=== PATIENT | male | born 1950 | race Caucasian/White ===

== ENCOUNTER 2019-07-24 13:03 | Inpatient (IN) | payer MEDICARE, MEDICAID, SELFPAY ==
[2019-07-24] VITALS (27 sets, daily range): BP systolic 79–130; BP diastolic 56–85; PULSE 86–127; RESP 12–30; TEMP 36.4–37; O2SAT 73–96; BMI 28.4
--- NOTE | 2019-07-24 13:06 | XRR_ITS ---
PROCEDURE INFORMATION: Exam: XR Chest, 1 View Exam date and time: 07/24/2019 1:09 PM Age: 69 years old Clinical indication: Shortness of breath; Additional info: Cough TECHNIQUE: Imaging protocol: XR of the chest Views: 1 view. COMPARISON: CT chest con [id number] 08/25/2016 3:19 PM FINDINGS: Lungs: Low lung volumes are seen with diffuse chronic interstitial lung disease. These findings were demonstrated on the prior CT chest examination and appears similar. Pleural space: Unremarkable. No pleural effusion. No pneumothorax. Heart/Mediastinum: Unremarkable. No cardiomegaly. Bones/joints: Unremarkable. XR/XR chest 1V portable [id number] IMPRESSION: Chronic diffuse interstitial lung disease stable since prior Otherwise negative chest examination
--- NOTE | 2019-07-24 13:07 | ECG_ITS ---
Measurements Intervals [place] Rate: 128 P: SC: 0 QRS: -46 QRSD: 110 T: -25 QT: 280 QTc: 409 SUPRAVENTRICULAR TACHYCARDIA PATTERN CONSISTENT WITH PULMONARY DISEASE INFERIOR MYOCARDIAL INFARCTION , OF INDETERMINATE AGE [40+ ms Q WAVE AND/OR ST/T ABNORMALITY IN II/aVF] No previous ECG available for comparison Electronically Signed On 07-24-2019 19:05:30 CDT by Tiera Cross M.D. [id number]
[2019-07-24 13:24] LABS: Alveolar-Arterial Oxygen Gradi 592.9 mmHg (5-10); Arterial Blood Gas Hematocrit 42.3 % (42-52); Blood Gas Allen Test Pos; Blood Gas Sample Site Radial, left; Blood Gas Sample Type Arterial; Carboxyhemoglobin 2.3 %THgb (0.4-20.1); HCO3 ABG 18.6 mmol/L (22-26); HGB O2 Sat 89.9 % (95-100); Ionized Calcium Level - ABG 1.1 mmol/L (1.1-1.4); Methemoglobin 0.7 % (0.4-1.5); Oxygen Device NRB; Oxygen Saturation ABG 92.7; PO2 ABG 63.1 mmHg (80.0-100.0); Potassium Level - ABG 3.7 mmol/L (3.5-5.0); Total Hemoglobin 13.8 g/dL (14-18)
[2019-07-24] MEDS: albuterol 8 gm MDI 6 PUFF INHALATION (13:36)
[2019-07-24] MEDS: levofloxacin-dextrose 5 % 750 MG/150 ML PREMIX 150 MG IV (13:38)
[2019-07-24 13:42] LABS: Basophils # 0.2 10^3/uL (0.0-0.1); Basophils % 0.8 %; Eosinophils # 0.1 10^3/uL (0.0-0.8); Eosinophils % 0.3 %; Hematocrit 45.9 % (42.0-52.0); Hemoglobin 14.2 g/dL (11.7-16.6); Lymphocytes # 2.4 10^3/uL (0.8-4.8); Lymphocytes % 12.5 %; Mean Corpuscular HGB Conc 30.9 g/dL (30.0-36.0); Mean Corpuscular Hemoglobin 30.1 pg (28.0-34.0); Mean Corpuscular Volume 97.2 fL (80-94); Mean Platelet Volume 12.6 fL (7.4-10.4); Monocytes % 10.3 %; Neutrophils # 14.6 10^3/uL (1.8-7.7); Neutrophils % 75.4 %; Nucleated Red Blood Cells % 0 %; Platelet Count 347 10^3/cmm (130-400); Red Blood Count 4.72 10^6/uL (4.1-5.3); Red Cell Distribution Width 13.8 % (12.1-15.1); White Blood Count 19.3 10^3/uL (4.0-10.0)
[2019-07-24 14:04] LABS: Alanine Aminotransferase 9 U/L (0-41); Alkaline Phosphatase 81 IU/L (40-130); Anion Gap 29.1 (5-19); Aspartate Amino Transferase 21 U/L (0-40); Blood Urea Nitrogen 29 mg/dL (8-23); Carbon Dioxide 17 mmol/L (22-29); Chloride 93 mmol/L (98-107); Glomerular Filtration Rate 27.1 mL/min (90-130); Glucose 358 mg/dL (65-115); Magnesium 2.5 mg/dL (1.7-2.3); NT Pro B Type Natriuretic Pept 10892 pg/mL (0-125); Osmolality Calculated 291 mOsm/kg (285-295); Potassium 4.1 mmol/L (3.5-5.1); Sodium 135 mmol/L (136-145); Total Bilirubin 1.2 mg/dL (0.15-1.2)
[2019-07-24 14:10] LABS: Troponin(5th) Baseline 276 ng/L (0-15)
--- NOTE | 2019-07-24 14:41 | PC.NURSE ---
patient received 1 liter of fluids per ems and 3 liters in er
--- NOTE | 2019-07-24 14:43 | USCV_ITS ---
Mario Sherwood Age: 69 Gender: M : 1950 Exam Date: 07/24/2019 15:03 Ordering Phys: Liset Jc DO Technologist: Sandra Rondon Exam Location: [facility] Indication: EF BP: 79 / 56 HR: 111 Rhythm: Sinus Technical Quality: Technically difficult study MEASUREMENTS (Male / Female) Normal Values 2D ECHO LV Diastolic Diameter PLAX 4.7 cm 4.2 - 5.9 / 3.9 - 5.3 cm LV Systolic Diameter PLAX 3.1 cm IVS Diastolic Thickness 1.6 cm 0.6 - 1.0 / 0.6 - 0.9 cm IVS Systolic Thickness 1.7 cm LVPW Diastolic Thickness 1.6 cm 0.6 - 1.0 / 0.6 - 0.9 cm LVPW Systolic Thickness 2.4 cm LV Ejection Fraction 2D Teich 61.7 % M-MODE LV Diastolic Diameter MM 5.4 cm 4.2 - 5.9 / 3.9 - 5.3 cm LV Systolic Diameter MM 3.3 cm LV Ejection Fraction MM Teich 69.1 % IVS Diastolic Thickness MM 2.7 cm 0.6 - 1.0 / 0.6 - 0.9 cm IVS Systolic Thickness MM 2.5 cm LVPW Diastolic Thickness MM 1.7 cm 0.6 - 1.0 / 0.6 - 0.9 cm LVPW Systolic Thickness MM 2.7 cm RV Diastolic Diameter MM 1.9 cm FINDINGS Left Ventricle Decreased left ventricular cavity size. Normal left ventricular systolic function. Left ventricular ejection fraction is estimated at 55 %. Flattened septum in diastole consistent with right ventricle volume overload. Right Ventricle Moderately increased right ventricular size. Severely decreased right ventricular systolic function. Right Atrium Normal right atrial size. Left Atrium Normal left atrial size. Mitral Valve Structurally normal mitral valve. No mitral valve stenosis. Aortic Valve Mild aortic valve calcification. No aortic valve stenosis. Tricuspid Valve No tricuspid valve stenosis. Pulmonic Valve Pulmonic valve not well visualized. Pericardium No pericardial mass. Aorta Normal ascending aorta dimension. CONCLUSIONS Please note that this is a limited echo without Doppler data while images are suboptimal therefore full interpretation of echo in detail is not possible. 1-Decreased left ventricular cavity size. Normal left ventricular systolic function. Left ventricular ejection fraction is estimated at 55 %. Flattened septum in diastole consistent with right ventricle volume overload. 2-Moderately increased right ventricular size. Severely decreased right ventricular systolic function. Due to lack of Doppler data we cannot calculate pulmonary pressure. Differential diagnosis of reduced RV function and RV strain could be large pulmonary embolism, interstitial pulmonary disease, pulmonary hypertension and RV infarction 3-No significant valvular abnormality pertaining to stenosis of the valve however due to lack of Doppler analysis cannot assess regurgitation 4-There is no pericardial effusion. 5-Right atrial pressure is around 20 mm of mercury. 6-There are no prior echocardiogram studies to compare. Tiera Cross MD (Electronically Signed) Final Date: 24 July 2019 16:08 S
--- NOTE | 2019-07-24 14:52 | ED_ITS ---
HPI - SOB/Dyspnea General: Chief Complaint: Shortness of Breath/Dyspnea Stated Complaint: SOB Time Seen by Provider: 07/24/19 13:04 History of Present Illness: HPI Narrative: Mario is a 69-year-old male who comes in complaining of fever, cough and weakness. He states his symptoms began 3 days ago. Yesterday his fever was as high as 102 degrees. His cough is productive of yellow and white sputum. He denies any chest pain except for he states he feels sore in his chest from coughing but otherwise denies any pain at rest. The patient does not believe he has been around anyone else sick. EMS reports the patient was found to be hypoxic with a pulse oximetry in the 70s and a blood pressure in the 70s as well. Patient does not normally wear oxygen and states that he has some type of lung disease. EMS gave the patient 0.25 mg of terbutaline subcu, 125 mg of Solu-Medrol IV and p.o. aspirin. Associated symptoms: Reports fever(s); Deny abdominal pain, chest congestion, chest pain, diaphoresis, dizziness, extremity pain, hemoptysis, lightheadedness, nausea, orthopnea, palpitations, syncope or vomiting Review of Systems Const: Reports: fever(s), chills and body aches; Denies: fatigue, malaise or diaphoresis Eyes: Denies: change in vision, blurry vision, blind spots or photophobia ENMT: Denies: throat pain, odynophagia, hoarseness, swelling of lips/tongue, ear or mastoid pain, ear discharge, change in hearing or nasal discharge Card: Denies: chest pain, palpitations, irregular heart rhythm, edema, lightheadedness, syncope, pre-syncope, dyspnea on exertion or orthopnea Resp: Reports: dyspnea, productive cough and wheezing; Denies: non-productive cough, hemoptysis or chest congestion GI: Denies: abdominal pain, nausea, vomiting, hematemesis, coffee ground emesis, heartburn, diarrhea, constipation, GI cramping, hematochezia or melena : Denies: flank pain, dysuria, urinary frequency, urinary urgency or hematuria Musc: Denies: neck pain, back pain, extremity pain, extremity swelling, joint pain, joint swelling, joint redness, joint warmth or joint stiffness Skin/Breast: Denies: rash, pruritus, erythema, skin tenderness or jaundice Neuro: Denies: headache(s), numbness in extremities, weakness in extremities, sensory changes, lack of coordination, difficulty walking, dizziness, vertigo, confusion or Slurred speech present Azeem/Lymph: Denies: easy bruising, easy bleeding, petechiae, purpura or enlarged lymph nodes All/Imm: Denies: urticaria, throat swelling, tongue swelling, facial swelling or acute wheezing PFSH ED PFSH: Medical History COPD (chronic obstructive pulmonary disease) DM type 2 (diabetes mellitus, type 2) GERD (gastroesophageal reflux disease) Hypertension Pulmonary fibrosis Social History Smoking and tobacco status: former smoker Physical Exam Const: COMMON NORMALS: no acute distress, patient oriented x3, no limitations, healthy appearing and well nourished GENERAL APPEARANCE: cooperative, well kempt and well developed HENMT: COMMON NORMALS: normocephalic, atraumatic, external ears normal, EAC's normal and Normal external nose present HEAD & SCALP: normal to inspection, normocephalic and atraumatic FACE & SINUS: normal facial exam and face symmetric NOSE: Normal external nose present and Normal nares present EXTERNAL EAR: Yes external ears normal EXTERNAL AUDITORY CANAL: EAC's normal MOUTH: Normal oral and palatal mucosa present, lip normal and tongue normal Eye: COMMON NORMALS: Equal, round and reactive pupils present and conjunctivae normal GENERAL EYE: appearance normal, both eyes and all related structures ALIGNMENT: Yes alignment normal PERIORBITAL: periorbital findings normal EYELID: eyelids normal CONJUNCTIVA: Yes conjunctivae normal SCLERA: sclerae normal PUPIL: Yes Equal, round and reactive pupils present Neck/C-Spine: COMMON NORMALS: full ROM, no lymphadenopathy, supple, no meningeal signs and no JVD GENERAL: Yes normal visual inspection and Yes trachea midline Chest: COMMONS NORMALS: normal inspection of the chest and normal palpation of entire chest wall Resp: COMMON NORMALS: normal respiratory effort, No retractions and No use of accessory muscles EFFORT & INSPECTION: Yes able to speak in complete sentences and Yes symmetric chest movement AUSCULTATION: no crackles, no rales, rhonchi and wheezes Cardio: COMMON NORMALS: no JVD, regular rate, regular rhythm, S1 normal heart sound present and S2 normal heart sound present RATE: regular rate RHYTHM: regular rhythm HEART SOUNDS: S1 normal heart sound present, S2 normal heart sound present, no click, no gallops, no murmurs, no rubs and abnormal split S2 GI: COMMON NORMALS: Soft to palpation and No hepatosplenomegaly present PALPATION: Yes Soft to palpation, No Tenderness to palpation present (GI), No Guarding due to palpation present (GI), No Rigid due to palpation, Yes No hepatosplenomegaly present, No Hernia present, No Palpable mass present and No Pulsatile mass present : COMMON NORMALS: Yes no CVA tenderness BLADDER/KIDNEY EXAM: Yes no CVA tenderness Back/Pelvis: COMMON NORMALS: no CVA tenderness, thoracic and lumbar spine normal to inspection, no thoracic nor lumbar tenderness and thoraco-lumbar ROM normal Extremity: COMMON NORMALS: normal to inspection, full ROM, capillary refill normal, no joint enlargement, no clubbing, cyanosis or edema and no calf tenderness Neuro: COMMON NORMALS: patient oriented x3, CN's II-XII intact bilaterally, moves all extremities, no focal motor deficits and no sensory deficits noted MENINGEAL SIGNS: Yes no meningeal signs SPEECH: speech normal Psych: COMMON NORMALS: mental status grossly normal, Normal thought process present, cooperative, normal affect, speech normal and activity/motor behavior normal APPEARANCE: Yes well kempt SPEECH: Yes normal speech THOUGHT PROCESS: Normal thought process present Skin: COMMON NORMALS: no rashes or lesions noted, turgor normal, no jaundice, no petechiae and no mottling GENERAL SKIN EXAM: no rashes or lesions noted and turgor normal Course Vital Signs: Vital signs: Vital Signs Temperature 98.6 F 07/24/19 13:08 Pulse Rate 95 07/24/19 18:20 Respiratory Rate 22 H 07/24/19 18:20 Blood Pressure 110/80 07/24/19 18:20 Pulse Oximetry 95 07/24/19 18:20 MDM - SOB/Dyspnea MDM Narrative: Medical decision making narrative: The case was reviewed with Dr. Toribio. She agrees to admit. She would like a stat ultrasound to evaluate for the ejection fraction. The EKG had been previously reviewed with Dr. Mora and he agrees there is no evidence of acute NC. The patient does not have any chest pain. The patient has had COVID precautions placed from the beginning and is being treated empirically for sepsis. The patient is on Levophed and does remain critically ill. He will be admitted to the ICU. Lab Data: Attestation: I reviewed the patient's lab results. Labs: Lab Results 07/24/19 07/24/19 07/24/19 Range/Units 12:29 12:29 12:29 WBC 19.3 H (4.0-10.0) 10^3/ uL RBC 4.72 (4.1-5.3) 10^6/u L Hgb 14.2 (11.7-16.6) g/dL Hct 45.9 (42.0-52.0) % MCV 97.2 H (80-94) fL MCH 30.1 (28.0-34.0) pg MCHC 30.9 (30.0-36.0) g/dL RDW 13.8 (12.1-15.1) % Plt Count 347 (130-400) 10^3/c mm MPV 12.6 H (7.4-10.4) fL Neut % (Auto) 75.4 % Lymph % (Auto) 12.5 % Archer % (Auto) 10.3 % Eos % (Auto) 0.3 % Baso % (Auto) 0.8 % Neut # (Auto) 14.6 H (1.8-7.7) 10^3/u L Lymph # (Auto) 2.4 (0.8-4.8) 10^3/u L Archer # (Auto) 2.0 H (0.2-0.9) 10^3/u L Eos # (Auto) 0.1 (0.0-0.8) 10^3/u L Baso # (Auto) 0.2 H (0.0-0.1) 10^3/u L Nucleated RBC % (a uto) 0 % Nucleated RBCs # 0.0 /100WBC Specimen Type Sample Site ABG pH (7.35-7.45) ABG pCO2 (35-45) mmHg ABG pO2 (80.0-100.0) mmH g ABG HCO3 (22-26) mmol/L ABG O2 Saturation ABG Base Excess (-2.0-2.0) mmol/ L Michael Test A-a O2 Gradient (5-10) mmHg Hematocrit (42-52) % Hgb O2 Saturation (95-100) % Carboxyhemoglobin (0.4-20.1) %THgb Methemoglobin (0.4-1.5) % Total Hemoglobin (14-18) g/dL Ionized Calcium (1.1-1.4) mmol/L O2 Delivery Device O2 Liters/Min % FiO2 % Health Insurance Agent ID Sodium 135 L (136-145) mmol/L Potassium 4.1 (3.5-5.1) mmol/L Chloride 93 L (98-107) mmol/L Carbon Dioxide 17 L (22-29) mmol/L Anion Gap 29.1 H (5-19) BUN 29 H (8-23) mg/dL Creatinine 2.4 H (0.7-1.2) mg/dL GFR Calculation 27.1 L (90-130) mL/min Glucose 358 H (65-115) mg/dL Calculated Osmolal ity 291 (285-295) mOsm/k g Lactic Acid (0.5-2.2) mmol/L Calcium 9.0 (8.5-10.5) mg/dL Magnesium 2.5 H (1.7-2.3) mg/dL Total Bilirubin 1.2 (0.15-1.2) mg/dL AST 21 (0-40) U/L ALT 9 (0-41) U/L Alkaline Phosphata se 81 (40-130) IU/L Troponin T Baselin e 276 H* (0-15) ng/L Troponin T 120 Min lumbee (0-15) ng/L Delta Troponin T (0-10) ABS# NT-Pro-B Natriuret Pep 52458 H (0-125) pg/mL Total Protein 8.0 (6.6-8.7) g/dL Albumin 4.0 (3.5-5.2) g/dL Globulin 4.0 (1.3-4.6) g/dL 07/24/19 07/24/19 07/24/19 Range/Units 13:13 13:20 14:32 WBC (4.0-10.0) 10^3/ uL RBC (4.1-5.3) 10^6/u L Hgb (11.7-16.6) g/dL Hct (42.0-52.0) % MCV (80-94) fL MCH (28.0-34.0) pg MCHC (30.0-36.0) g/dL RDW (12.1-15.1) % Plt Count (130-400) 10^3/c mm MPV (7.4-10.4) fL Neut % (Auto) % Lymph % (Auto) % Archer % (Auto) % Eos % (Auto) % Baso % (Auto) % Neut # (Auto) (1.8-7.7) 10^3/u L Lymph # (Auto) (0.8-4.8) 10^3/u L Archer # (Auto) (0.2-0.9) 10^3/u L Eos # (Auto) (0.0-0.8) 10^3/u L Baso # (Auto) (0.0-0.1) 10^3/u L Nucleated RBC % (a uto) % Nucleated RBCs # /100WBC Specimen Type Arterial Sample Site Radial, left ABG pH 7.40 (7.35-7.45) ABG pCO2 30.0 L (35-45) mmHg ABG pO2 63.1 L (80.0-100.0) mmH g ABG HCO3 18.6 L (22-26) mmol/L ABG O2 Saturation 92.7 ABG Base Excess -5.0 L (-2.0-2.0) mmol/ L Michael Test Pos A-a O2 Gradient 592.9 H (5-10) mmHg Hematocrit 42.3 (42-52) % Hgb O2 Saturation 89.9 L (95-100) % Carboxyhemoglobin 2.3 (0.4-20.1) %THgb Methemoglobin 0.7 (0.4-1.5) % Total Hemoglobin 13.8 L (14-18) g/dL Ionized Calcium 1.1 (1.1-1.4) mmol/L O2 Delivery Device Nrb O2 Liters/Min 15.0 % FiO2 100.0 % Health Insurance Agent ID ed Sodium 134.0 (136-145) mmol/L Potassium 3.7 (3.5-5.1) mmol/L Chloride (98-107) mmol/L Carbon Dioxide (22-29) mmol/L Anion Gap (5-19) BUN (8-23) mg/dL Creatinine (0.7-1.2) mg/dL GFR Calculation (90-130) mL/min Glucose 308.0 H (65-115) mg/dL Calculated Osmolal ity (285-295) mOsm/k g Lactic Acid 5.0 H* (0.5-2.2) mmol/L Calcium (8.5-10.5) mg/dL Magnesium (1.7-2.3) mg/dL Total Bilirubin (0.15-1.2) mg/dL AST (0-40) U/L ALT (0-41) U/L Alkaline Phosphata se (40-130) IU/L Troponin T Baselin e (0-15) ng/L Troponin T 120 Min lumbee 206.8 H (0-15) ng/L Delta Troponin T -69.2 L (0-10) ABS# NT-Pro-B Natriuret Pep (0-125) pg/mL Total Protein (6.6-8.7) g/dL Albumin (3.5-5.2) g/dL Globulin (1.3-4.6) g/dL Imaging Data^: CXR: My impression: Extensive interstitial fibrosis. EKG Data^: EKG 1: Attestation: I personally reviewed and interpreted this EKG as follows: EKG Interpretation Date: 07/24/19 EKG interpretation time: 13:19 Interpretation: Normal sinus rhythm with a ventricular rate of 128, old inferior Q waves with mild ST segment elevation in [address] segment depression in 1 and aVL. Findings confirm with Dr. Mora. Critical Care Time Critical Care Time: Critical Care Time: Yes Total Critical Care Time: 30 Attestation: Critical care time consisted of evaluating and reevaluating the patient with condition changes. Critical care time consisted of blood pressure management with IV fluids and IV vasopressors. Critical care time consisted of evaluating the patient's lab and adjusting medications and consultations with multiple providers. 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
[2019-07-24] MEDS: enoxaparin 100 mg/mL Syringe SUBCUT (15:02)
[2019-07-24 15:03] LABS: Troponin 5 2HR Delta -69.2 ABS# (0-10)
[2019-07-24 15:05] LABS: Troponin 5 2HR 206.8 ng/L (0-15)
--- NOTE | 2019-07-24 15:07 | ECG_ITS ---
Measurements Intervals [place] Rate: 108 P: -39 AR: 151 QRS: -42 QRSD: 107 T: -49 QT: 335 QTc: 449 SINUS TACHYCARDIA PATTERN CONSISTENT WITH PULMONARY DISEASE INFERIOR MYOCARDIAL INFARCTION , OF INDETERMINATE AGE [40+ ms Q WAVE AND/OR ST/T ABNORMALITY IN II/aVF] MODERATE T-WAVE ABNORMALITY, CONSIDER ANTERIOR ISCHEMIA [-0.1+ mV T WAVE IN V3/V4] No previous ECG available for comparison Electronically Signed On 07-24-2019 19:07:43 CDT by Tiera Cross M.D. [email or web address]
[2019-07-24 15:11] LABS: Reflex Lactate Order REFLEX LACTIC ORDERD
--- NOTE | 2019-07-24 16:04 | USR_ITS ---
PROCEDURE INFORMATION: Exam: US Duplex Lower Extremity Veins, Bilateral Exam date and time: 07/24/2019 4:05 PM Age: 69 years old Clinical indication: Pain; Leg, lower; Bilateral TECHNIQUE: Imaging protocol: Real-time duplex ultrasound of the extremities with 2-D hou scale, color Doppler flow and spectral waveform analysis with image documentation. Complete exam focused on the bilateral lower extremity veins. COMPARISON: No relevant prior studies available. FINDINGS: Right deep veins: Unremarkable. The common femoral, femoral, proximal profunda femoral and popliteal veins are patent without thrombus. Normal Doppler waveforms. Normal compressibility and/or augmentation response. Right superficial veins: Saphenofemoral junction is patent without thrombus. Left deep veins: Unremarkable. The common femoral, femoral, proximal profunda femoral and popliteal veins are patent without thrombus. Normal Doppler waveforms. Normal compressibility and/or augmentation response. Left superficial veins: Saphenofemoral junction is patent without thrombus. Soft tissues: Unremarkable. US/[place] [id number] IMPRESSION: No evidence of deep vein thrombosis.
[2019-07-24 16:14] LABS: Bilirubin Urine 1+ (NEGATIVE); Blood Urine Neg (Negative); Glucose Urine UA 1+ (Normal); Ketones Urine 1+ (Negative); Leukocyte Esterase Urine Negative (Negative); Nitrate Urine Negative (Negative); Protein Urine 1+ (Negative); Specific Gravity, Urine 1.025 (1.005-1.030); Urine Appearance Clear (CLEAR); Urine Color Yellow (Yellow); Urobilinogen Urine 8 mg/dL (Negative); pH Urine 5 (5-7)
[2019-07-24 16:19] LABS: Bacteria Urine 2+; Mucus Urine 2+
[2019-07-24 16:20] LABS: Amorphous Sediment Urine 1+; Squamous Epithelial Cell Urine 0-4 (0-5); WBC Urine 0-4 /hpf (0-5)
[2019-07-24 16:21] LABS: Hyaline Casts Urine 0-4
[2019-07-24 16:22] LABS: Add Urine Culture? Yes
[2019-07-24 16:54] LABS: Lactic Acid level (Lactate) 2.5 mmol/L (0.5-2.2)
[2019-07-24 17:22] LABS: D Dimer 4.71 ug/mIFEU (0-0.59)
--- NOTE | 2019-07-24 18:31 | P.HP_ITS ---
Providers/Chief Complaint Admitting Physician: Yissel Toribio MD Chief Complaint: SOB History of Present Illness Mario Sherwood is a 69 year old male with a past medical history of diabetes mellitus, hypertension, interstitial lung disease/COPD, GERD scented to the ER today complaining of fever up to 102 Fahrenheit at home that started about 3 days ago. He is complaining of cough with productive sputum history of postnasal drip present. No history of sick contacts. He has not been on any chronic steroids. Upon arrival at the ER he was noted to be hypoxic with SPO2 70s. Of note he is not on any home oxygen. He received 125 mg of Solu-Medrol in the ER. He was also noted to be hypotensive with a systolic blood pressure in the 70s and was started on Levophed. He did receive a sepsis bolus. Diagnostics in the ED were concerning for elevated white blood cell count of 19, lactate of 5, d-dimer of 4.71 ABG with 30/60 3/18.6, carboxyhemoglobin and methemoglobin within normal limits 100% FiO2 nonrebreather. Only concerning labs were blood sugar of 358, anion gap of 29, creatinine of 2.4, elevated baseline troponin of 276 with 2-hour delta of -69. Elevated proBNP of 10,800, EKG with inverted T waves in V3 V4 without any prior EKGs for comparison. Limited echo obtained per my request showed normal LVEF of 55%, flattened septum in diastole consistent with right ventricular volume overload. Moderately increased right ventricular size and severely decreased right ventricular systolic function overall findings were extremely concerning for RV strain and possible PE especially with the elevated d-dimer and new hypoxia. It was discussed with the patient in the ER that ideally would like to perform a CTA to rule out the possibility of a large PE, however patient refused due to the risk of contrast-induced nephropathy. He has been started on full dose lovenox in the interim. CXR is with pulmonary fibrosis, grossly unchanged per report. Review of Systems General: Reports: 10 or more systems reviewed and unremarkable except in HPI and below Const: Denies: fever(s), chills or body aches Eyes: Denies: change in vision, blurry vision or photophobia ENMT: Reports: hoarseness; Denies: throat pain, enlarged tonsils, odynophagia or nasal congestion Card: Denies: chest pain, palpitations, irregular heart rhythm, edema, swelling of feet/ankles, lightheadedness, pre-syncope, dyspnea on exertion or orthopnea Resp: Denies: dyspnea, productive cough, non-productive cough, wheezing, stridor, pain on inspiration, change in phlegm color, hemoptysis or chest congestion GI: Denies: abdominal pain, nausea, vomiting, hematemesis, coffee ground emesis, dysphagia, heartburn, diarrhea, constipation, GI cramping, change in stool character, hematochezia or melena : Denies: flank pain, dysuria, urinary frequency, urinary urgency, urinary hesitancy or hematuria Musc: Denies: neck pain, back pain, extremity pain, joint swelling, joint warmth or deformity Neuro: Denies: headache(s), numbness in extremities, weakness in extremities, sensory changes, difficulty walking, frequent falls, dizziness, vertigo, behavioral changes, Slurred speech present or seizure-like activity Psych: Denies: anxiety, depression, suicidal ideation or homicidal ideation Endo: Denies: polyuria, polydipsia, tired all the time, cold intolerance or hot flashes Azeem/Lymph: Denies: easy bruising or easy bleeding Medications/Allergies Home Medications Medication Instructions Recorded Confirmed Last Taken Type diltiazem HCl 240 mg PO DAILY 07/24/19 07/24/19 07/23/19 History gabapentin 300 mg PO TID 07/24/19 07/24/19 Unknown History liraglutide [Victoza 3-Cassius] 1.8 mg SUBCUT DAILY 07/24/19 07/24/19 07/23/19 History tiotropium bromide [Spiriva with 1 cap INHALATION DAILY 07/24/19 07/24/19 Unknown History HandiHaler] tramadol 50 mg PO Q8H PRN 07/24/19 07/24/19 Unknown History valsartan 160 mg PO DAILY 07/24/19 07/24/19 07/23/19 History Allergies Allergy/AdvReac Type Severity Reaction Status Date / Time No Known Allergies Allergy Verified 07/24/19 13:19 PFSH Acute PFSH: Medical History COPD (chronic obstructive pulmonary disease) DM type 2 (diabetes mellitus, type 2) GERD (gastroesophageal reflux disease) Hypertension Pulmonary fibrosis Social History Smoking and tobacco status: former smoker Vitals/I&O/Wt Last Vital Signs Temp 98.6 F 07/24/19 13:08 Pulse 95 07/24/19 18:20 Resp 22 H 07/24/19 18:20 BP 110/80 07/24/19 18:20 Pulse Ox 95 07/24/19 18:20 Weight last 48 hrs Weight 108.862 kg Physical Exam Narrative: EXAM NARRATIVE: GEN: Awake, alert and oriented, no acute distress HEENT: currently on a NRB mask with 15lpm, saturating 95% CVS: S1S2 N RS: B/L scattered fine crackles on exam. Abd: Soft, nt/nd , bs+ BUS SYSTEM OPERATOR: no focal neuro deficits Urinary Catheter Management^: Casey: Cath Placed During This Visit: yes Urinary Catheter Date of Insertion: 07/24/19 Urinary Catheter Time of Insertion: 18:22 Data : 07/24/19 12:29 07/24/19 18:45 Micro: Microbiology 07/24/19 13:25 Blood Culture - Preliminary Blood SPECIMEN COLLECTED 07/24/19 13:20 Blood Culture - Preliminary Blood SPECIMEN COLLECTED A&P Assessment and plan (1) Sepsis with acute hypoxic respiratory failure: Status: Acute Qualifiers: Sepsis type: sepsis due to unspecified organism Severe sepsis shock status: with septic shock Qualified Code(s): A41.9 - Sepsis, unspecified organism; R65.21 - Severe sepsis with septic shock; J96.01 - Acute respiratory failure with hypoxia (2) Septic shock: Status: Acute (3) Hypertension: Status: Acute Qualifiers: Hypertension type: essential hypertension Qualified Code(s): I10 - Essential (primary) hypertension (4) DM type 2 (diabetes mellitus, type 2): Status: Acute Qualifiers: Diabetes mellitus complication status: without complication Diabetes mellitus research program internship insulin use: without research program internship use Qualified Code(s): E11.9 - Type 2 diabetes mellitus without complications (5) Pulmonary fibrosis: Status: Acute (6) COPD (chronic obstructive pulmonary disease): Status: Acute Qualifiers: COPD type: unspecified COPD Qualified Code(s): J44.9 - Chronic obstructive pulmonary disease, unspecified (7) Right ventricular dysfunction: Status: Acute (8) MILENA (acute kidney injury): Status: Acute Additional A&P Information Admit to ICU 1. Septic shock: meets sepsis criteria by way of leukocytosis, tachycardia and hypotension and elevated lactate. Source of sepsis is currently under evaluation. Patient reports a history of cough production over the past few days. Chest x-ray shows chronic diffuse interstitial lung disease stable since last x-ray when compared to August 2016. No gross consolidation is currently seen. UA without leuk esterase and negative nitrites No current abdominal symptoms such as diarrhea abdominal pain or nausea. COVID testing has been requested from the ER and sent Check urine Legionella and bacterial antigens. Empiric Zosyn and azithromycin in the interim for atypical pneumonia. #2 acute hypoxic respiratory failure The above could be related to sepsis. Covid testing has been requested. ABG with within normal limit carboxy and methemoglobin. Given elevated d-dimer, elevated troponin with negative delta's, evidence of right heart strain on echocardiogram(though this may be related to underlying interstitial lung disease), hypoxic respiratory failure, possibility of pulmonary embolism including life-threatening saddle embolus is really high. Need for an urgent CTA was discussed with the patient, however he has refused while understanding the risks of missing a massive PE which may require thrombolysis. This is primarily because of his concern for possible contrast- induced nephropathy. Risks and benefits were discussed with the patient however he has refused this test for now We will start full dose anticoagulation with Lovenox in the interim. This will be renally dosed. Patient remains at high risk of intubation and mechanical ventilation. Lower extremity Doppler performed in the ER is without any evidence of DVT. He has received Solu-Medrol while in route to the hospital. Albuterol inhalation every 4 hours standing. Continue Spiriva inhalation. Will change to nebulized on both once COVID testing results are obtained. #3 diabetes mellitus, currently with hyperglycemia. Elevated anion gap which appears to be most likely related to sepsis, however possibility of DKA cannot be excluded. Last lab work is from . We will check a stat cmp serum ketones. If anion gap still persisting along with positive ketones, will start insulin drip. In the interim he has been started on high insulin sliding scale. #4 hypertension: Patient is hypotensive and on Levophed at 2 mics per minute. We will hold off on his antihypertensive regimen for now. #5 elevated troponins: Sort of right heart strain noted on echocardiogram. Serial troponins are trending down. #6 history of COPD #7 acute kidney injury, likely as a result of sepsis. Last known creatinine 0.7 from 2013. Gentle IV hydration. Attestations Medical Necessity Statement*: anticipate >2midnight admission for septic shock, new hypoxic respiratory failure Coding Level of Care Code Acute Estimator Paperboard Boxes for [facility] Fwd Diagnoses Sepsis with acute hypoxic respiratory failure A41.9; R65.21; J96.01 Sepsis type: sepsis due to unspecified organism Severe sepsis shock status: with septic shock Septic shock A41.9; R65.21 Hypertension I10 Hypertension type: essential hypertension DM type 2 (diabetes mellitus, type 2) E11.9 Diabetes mellitus complication status: without complication Diabetes mellitus research program internship insulin use: without long-term use Pulmonary fibrosis J84.10 COPD (chronic obstructive pulmonary disease) J44.9 COPD type: unspecified COPD Right ventricular dysfunction I51.9 MILENA (acute kidney injury) N17.9
--- NOTE | 2019-07-24 19:07 | ECG_ITS ---
Measurements Intervals [place] Rate: 93 P: 12 WI: 202 QRS: -35 QRSD: 128 T: -65 QT: 424 QTc: 530 SINUS RHYTHM WITH OCCASIONAL VENTRICULAR PREMATURE COMPLEXES INFERIOR MYOCARDIAL INFARCTION [40+ ms Q WAVE AND/OR ST/T ABNORMALITY IN II/aVF], OF INDETERMINATE AGE MODERATE T-WAVE ABNORMALITY, CONSIDER ANTEROLATERAL ISCHEMIA [-0.1+ mV T WAVE IN V3-V6] Compared to ECG 07/24/2019 15:40:21 Ventricular premature complex(es) now present Sinus tachycardia no longer present Myocardial infarct finding still present T-wave abnormality still present Possible ischemia still present Electronically Signed On 07-25-2019 19:30:36 CDT by Tiera Cross M.D. [email or web address]
[2019-07-24 19:09] LABS: Ketone (Acetest) Serum Negative (Negative)
[2019-07-24 19:14] LABS: Lactic Sepsis W/Reflex 2.7 mmol/L (0.5-2.2)
[2019-07-24] MEDS: lactated ringers 1,000 ML 75 ML IV (19:17)
--- NOTE | 2019-07-24 19:18 | PC.NURSE ---
PT DID NOT ARRIVE UNTIL 1814 TO FLOOR; LR SCANNED AT A LATE TIME DUE TO HIS ARRIVAL
[2019-07-24 19:24] LABS: Procalcitonin 0.32 ng/mL (0-0.5)
[2019-07-24 19:35] LABS: Alanine Aminotransferase 10 U/L (0-41); Albumin Level 3.3 g/dL (3.5-5.2); Alkaline Phosphatase 67 IU/L (40-130); Aspartate Amino Transferase 22 U/L (0-40); Blood Urea Nitrogen 25 mg/dL (8-23); Calcium 8.4 mg/dL (8.5-10.5); Carbon Dioxide 18 mmol/L (22-29); Chloride 97 mmol/L (98-107); Chol HDL Ratio 3.81 mg/dL (1.0-5.00); Cholesterol 118 mg/dL (0-200); Globulin 4.6 g/dL (1.3-4.6); Glomerular Filtration Rate 46.7 mL/min (90-130); Glucose 335 mg/dL (65-115); HDL Cholesterol 31 mg/dL (60-100); LDL Cholesterol Calculated 72 mg/dL (50-129); LDL HDL Ratio 2.32 RATIO (0.00-3.22); Osmolality Calculated 280 mOsm/kg (285-295); Sodium 130 mmol/L (136-145); Total Bilirubin 0.9 mg/dL (0.15-1.2); Total Protein 7.9 g/dL (6.6-8.7); Triglycerides 77 mg/dL (0-150)
[2019-07-24 19:41] LABS: Troponin 5 6HR 170.4 ng/L (0-15)
[2019-07-24] MEDS: piperacillin-tazobactam 3.375 GM in sodium chloride 0.9% (plus) 50 ML IV (20:00)
[2019-07-24 20:44] LABS: Reflex Lactate Order REFLEX LACTIC ORDERD
[2019-07-24] MEDS: ipratropium-albuterol 3 mL Neb INHALATION (21:35)
[2019-07-24 21:49] LABS: Lactic Acid level (Lactate) 1.7 mmol/L (0.5-2.2)
[2019-07-25] VITALS (21 sets, daily range): BP systolic 116–154; BP diastolic 71–106; PULSE 79–110; RESP 14–32; TEMP 36.7–37; O2SAT 87–100
[2019-07-25] MEDS: lactated ringers 1,000 ML 75 ML IV ×2 (01:17→14:57)
[2019-07-25] MEDS: piperacillin-tazobactam 3.375 GM in sodium chloride 0.9% (plus) 50 ML IV ×3 (02:55→20:11)
[2019-07-25] MEDS: ipratropium-albuterol 3 mL Neb INHALATION ×4 (03:50→20:40)
--- NOTE | 2019-07-25 03:52 | PC.NURSE ---
O2 sat decreased to 78%, patient noted to be having increased shortness of breath. Danilo, RT called. O2 increased to 100% per high flow, prn breathing treatment given, HOB increased to high fowlers position. Respirations became less labored and patient reports decreased shortness of breath. O2 sat 95-96%. Lung sounds diminished, no crackles noted.
[2019-07-25 04:58] LABS: Basophils % 0.2 %; Eosinophils % 0.1 %; Hematocrit 43.1 % (42.0-52.0); Hemoglobin 13.6 g/dL (11.7-16.6); Lymphocytes # 1.3 10^3/uL (0.8-4.8); Lymphocytes % 10.1 %; Mean Corpuscular HGB Conc 31.6 g/dL (30.0-36.0); Mean Corpuscular Hemoglobin 30.2 pg (28.0-34.0); Mean Corpuscular Volume 95.8 fL (80-94); Mean Platelet Volume 12.4 fL (7.4-10.4); Monocytes # 0.8 10^3/uL (0.2-0.9); Monocytes % 6.2 %; Neutrophils # 10.7 10^3/uL (1.8-7.7); Nucleated Red Blood Cells % 0 %; Platelet Count 211 10^3/cmm (130-400); Red Cell Distribution Width 13.6 % (12.1-15.1); White Blood Count 12.8 10^3/uL (4.0-10.0)
[2019-07-25 05:39] LABS: ABG PCO2 34.2 mmHg (35-45); ABG PH Result 7.42 (7.35-7.45); Alveolar-Arterial Oxygen Gradi 589.9 mmHg (5-10); Arterial Blood Gas Hematocrit 40.6 % (42-52); Base Excess ABG -1.7 mmol/L (-2.0-2.0); Blood Gas Sample Site Brachial, right; Blood Gas Sample Type Arterial; Carboxyhemoglobin 1.4 %THgb (0.4-20.1); HCO3 ABG 22.1 mmol/L (22-26); HGB O2 Sat 89.7 % (95-100); Ionized Calcium Level - ABG 1.2 mmol/L (1.1-1.4); Methemoglobin 0.6 % (0.4-1.5); Oxygen Device NC; Oxygen Saturation ABG 91.6; PO2 ABG 58.7 mmHg (80.0-100.0); Potassium Level - ABG 3.6 mmol/L (3.5-5.0); Total Hemoglobin 13.2 g/dL (14-18)
--- NOTE | 2019-07-25 06:02 | PC.NURSE ---
Notified Dr. Green of patients decrease in O2 sats and is currently on 100% O2. No crackles noted. Notified of ABG results. Order given to place on Bipap and recheck ABG 20 minutes after bipap placed on patient.
[2019-07-25 06:58] LABS: Alanine Aminotransferase 11 U/L (0-41); Albumin Level 2.7 g/dL (3.5-5.2); Alkaline Phosphatase 69 IU/L (40-130); Anion Gap 16.8 (5-19); Aspartate Amino Transferase 24 U/L (0-40); Blood Urea Nitrogen 22 mg/dL (8-23); Calcium 9.1 mg/dL (8.5-10.5); Carbon Dioxide 20 mmol/L (22-29); Chloride 102 mmol/L (98-107); Globulin 4.9 g/dL (1.3-4.6); Glomerular Filtration Rate 74.5 mL/min (90-130); Glucose 208 mg/dL (65-115); Osmolality Calculated 283 mOsm/kg (285-295); Potassium 3.8 mmol/L (3.5-5.1); Sodium 135 mmol/L (136-145); Total Bilirubin 0.5 mg/dL (0.15-1.2); Total Protein 7.6 g/dL (6.6-8.7)
[2019-07-25 07:38] LABS: Glucose Point of Care 329 mg/dL (70-110)
--- NOTE | 2019-07-25 07:49 | ECG_ITS ---
Measurements Intervals [place] Rate: 96 P: 8 ME: 190 QRS: -32 QRSD: 124 T: -70 QT: 383 QTc: 484 SINUS RHYTHM INFERIOR MYOCARDIAL INFARCTION [40+ ms Q WAVE AND/OR ST/T ABNORMALITY IN II/aVF], OF INDETERMINATE AGE MODERATE T-WAVE ABNORMALITY, CONSIDER ANTEROLATERAL ISCHEMIA [-0.1+ mV T WAVE IN V3-V6] Compared to ECG 07/24/2019 15:40:21 Sinus tachycardia no longer present Myocardial infarct finding still present T-wave abnormality still present Possible ischemia still present Electronically Signed On 07-25-2019 19:28:26 CDT by Tiera Cross M.D. [email or web address]
[2019-07-25 08:23] LABS: Procalcitonin 0.32 ng/mL (0-0.5)
[2019-07-25 08:33] LABS: Erythrocyte Sedimentation Rate 62 mm/hr (0-10)
[2019-07-25 08:41] LABS: Lactic Sepsis W/Reflex 1.7 mmol/L (0.5-2.2)
[2019-07-25 08:52] LABS: Troponin T (5th) Once 144 ng/L (0-15)
[2019-07-25] MEDS: enoxaparin 120 mg/0.8 mL Syringe 110 MG SUBCUT ×2 (09:40→20:20)
[2019-07-25] MEDS: atorvastatin 40 mg Tablet PO (09:41)
[2019-07-25] MEDS: aspirin 81 mg EC Tablet PO (09:41)
[2019-07-25] MEDS: azithromycin 250 mg Tablet 500 MG PO (09:41)
--- NOTE | 2019-07-25 11:35 | P.PN_ITS ---
Subjective Subjective: Interval history: Overnight patient had episodes of hypoxia, requiring BiPAP placement, this morning he was taken off BiPAP, currently on 35 L of high flow, during my conversation with him, his oxygen saturations would drop into the low 80s, but would rebound after a few seconds, seems to only occur when he is talking, mild retractions Patient states that he currently is retired from the [employer], lives with his son, who was huffing air conditioner liquid, 2 days after, he started to develop fevers, shortness of breath with exertion, states that he has had chronic shortn ess of breath with exertion, but the shortness of breath for the last year has been slowly worsening, in the last week it is been severe, also reports fevers, productive cough, no lightheadedness, no dizziness, no chest pain, no significant cardiac history, does report smoking for over 20 years, but quit many years ago, was told he has COPD and interstitial lung disease, no silica exposure, did work in the [employer] so possible asbestos exposure, currently states that he is doing better, he is agreeable to have a CT angiogram of the chest to rule out pulmonary embolism, no history of calf pain or calf swelling, no history recent history of immobility, no recent history of surgeries Vitals/I&O/Wt Last Vital Signs Temp 98.2 F 07/25/19 06:00 Pulse 95 07/25/19 10:00 Resp 24 H 07/25/19 10:00 BP 154/90 07/25/19 10:00 Pulse Ox 90 07/25/19 10:00 07/24/19 07/25/19 07/25/19 22:59 06:59 14:59 Intake Total 538.0 / 538.0 802 / 1340.0 Output Total 500 / 500 950 / 1450 Balance 38.0 / 38.0 -148 / -110.0 Weight last 48 hrs Weight 111.584 kg Weight 108.862 kg Physical Exam Urinary Catheter Management^: Casey: Cath Placed During This Visit: yes Reason for Continuing Indwelling Catheter: Accurate Measurement of Urinary Output in Critically Ill Patients Urinary Catheter Date of Insertion: 07/24/19 Urinary Catheter Time of Insertion: 18:22 Data : 07/25/19 04:32 07/25/19 06:34 Micro: Microbiology 07/24/19 20:15 Legionella Urinary Antigen - Final Urine,Voided Bacterial Antigens - Final 07/24/19 13:25 Blood Culture - Preliminary Blood SPECIMEN COLLECTED 07/24/19 13:20 Blood Culture - Preliminary Blood SPECIMEN COLLECTED A&P Assessment and plan (1) Sepsis with acute hypoxic respiratory failure: Status: Acute Qualifiers: Sepsis type: sepsis due to unspecified organism Severe sepsis shock status: with septic shock Qualified Code(s): A41.9 - Sepsis, unspecified organism; R65.21 - Severe sepsis with septic shock; J96.01 - Acute respiratory failure with hypoxia (2) Septic shock: Status: Acute (3) Hypertension: Status: Acute Qualifiers: Hypertension type: essential hypertension Qualified Code(s): I10 - Essential (primary) hypertension (4) DM type 2 (diabetes mellitus, type 2): Status: Acute Qualifiers: Diabetes mellitus retirement insulin use: without retirement use Diabetes mellitus complication status: without complication Qualified Code(s): E11.9 - Type 2 diabetes mellitus without complications (5) Pulmonary fibrosis: Status: Acute (6) COPD (chronic obstructive pulmonary disease): Status: Acute Qualifiers: COPD type: unspecified COPD Qualified Code(s): J44.9 - Chronic obstructive pulmonary disease, unspecified (7) Right ventricular dysfunction: Status: Acute (8) MILENA (acute kidney injury): Status: Acute (9) NSTEMI (non-ST elevated myocardial infarction): Status: Acute Additional A&P Information Admit to ICU 1. Septic shock: Source of sepsis is likely secondary to bilateral pneumonias, possible COVID-19 Patient reports a history of cough production over the past few days, fevers Chest x-ray shows chronic diffuse interstitial lung disease stable, bilateral interstitial infiltrates upon my examination COVID testing has been requested from the ER and sent Check urine Legionella and bacterial antigens. Empiric Zosyn and azithromycin and vancomycin for atypical pneumonia, MRSA pneumonia #2 acute hypoxic respiratory failure The above could be related to sepsis. Covid testing has been requested. And possible pulmonary embolism. And/or flare of interstitial lung disease Echo evidence of, evidence of right heart strain on echocardiogram(though this may be related to underlying interstitial lung disease), Will order CT angiogram of the chest, patient is agreeable, understands risks and benefits, agrees to proceed Currently on therapeutic Lovenox Patient remains at high risk of intubation and mechanical ventilation. He agrees for elective intubation if required Lower extremity Doppler performed in the ER is without any evidence of DVT. Continue Solu-Medrol 40 mg IV push every 8 hours Albuterol inhalation every 4 hours standing. Continue Spiriva inhalation. Will change to nebulized on both once COVID testing results are obtained. #3 diabetes mellitus, currently with hyperglycemia. Continue high-dose sliding scale Levemir 5 units twice daily #4 hypotension, resolved, off Levophed #5 NSTEMI: Likely related to right heart strain, acute hypoxic respiratory failure, last troponin I 140 trending down, no chest pain, EKG shows T wave inversions in anterior chest leads, continue aspirin and statin, therapeutic Lovenox #6 history of COPD and interstitial lung disease #7 acute kidney injury, likely as a result of sepsis. Creatinine 1.0 Gentle IV hydration. Attestations Medical Necessity Statement*: Patient requires hospitalization, for acute hypoxic respiratory failure, secondary sepsis, possible PE, flare of inter stitial lung disease, nstemi Coding Level of Care Code Acute Unit Control Worker for [facility] Fwd Diagnoses Sepsis with acute hypoxic respiratory failure A41.9; R65.21; J96.01 Sepsis type: sepsis due to unspecified organism Severe sepsis shock status: with septic shock Septic shock A41.9; R65.21 Hypertension I10 Hypertension type: essential hypertension DM type 2 (diabetes mellitus, type 2) E11.9 Diabetes mellitus terminal system operator insulin use: without retirement use Diabetes mellitus complication status: without complication Pulmonary fibrosis J84.10 COPD (chronic obstructive pulmonary disease) J44.9 COPD type: unspecified COPD Right ventricular dysfunction I51.9 MILENA (acute kidney injury) N17.9 NSTEMI (non-ST elevated myocardial infarction) I21.4
--- NOTE | 2019-07-25 12:00 | PC.RESP ---
PULMONARY REHAB INFORMATION SENT TO PATIENT.
[2019-07-25] MEDS: dexmedetomidine 400 MCG in sodium chloride 0.9% (100 ml) 100 ML IV (14:56)
[2019-07-25] MEDS: pantoprazole 40 mg SDV IVP (18:55)
[2019-07-25 20:33] LABS: Glucose Point of Care 230 mg/dL (70-110)
[2019-07-25 20:34] LABS: Glucose Point of Care 220 mg/dL (70-110)
[2019-07-25 20:34] LABS: Glucose Point of Care 199 mg/dL (70-110)
[2019-07-25 20:34] LABS: Glucose Point of Care 201 mg/dL (70-110)
[2019-07-26] VITALS (37 sets, daily range): BP systolic 125–174; BP diastolic 88–108; PULSE 76–107; RESP 16–36; TEMP 36.7–37.2; O2SAT 75–95
[2019-07-26] MEDS: piperacillin-tazobactam 3.375 GM in sodium chloride 0.9% (plus) 50 ML IV ×3 (03:14→18:26)
[2019-07-26] MEDS: lactated ringers 1,000 ML 75 ML IV (03:15)
[2019-07-26] MEDS: ipratropium-albuterol 3 mL Neb INHALATION ×4 (03:23→20:09)
[2019-07-26 03:58] LABS: Basophils % 0.1 %; Eosinophils % 0.1 %; Hemoglobin 12.8 g/dL (11.7-16.6); Lymphocytes # 0.8 10^3/uL (0.8-4.8); Lymphocytes % 4.7 %; Mean Corpuscular Hemoglobin 30.3 pg (28.0-34.0); Mean Corpuscular Volume 94.8 fL (80-94); Mean Platelet Volume 12.1 fL (7.4-10.4); Monocytes # 0.4 10^3/uL (0.2-0.9); Monocytes % 2.5 %; Neutrophils # 15.4 10^3/uL (1.8-7.7); Neutrophils % 92.1 %; Nucleated Red Blood Cells % 0 %; Platelet Count 264 10^3/cmm (130-400); Red Blood Count 4.22 10^6/uL (4.1-5.3); Red Cell Distribution Width 13.5 % (12.1-15.1); White Blood Count 16.8 10^3/uL (4.0-10.0)
[2019-07-26 04:09] LABS: INR 1.19 (0.8-1.2)
[2019-07-26 04:15] LABS: Magnesium 2.2 mg/dL (1.7-2.3); Phosphorus 3.6 mg/dL (2.5-4.5)
[2019-07-26 04:21] LABS: Alanine Aminotransferase 18 U/L (0-41); Alkaline Phosphatase 89 IU/L (40-130); Anion Gap 16.9 (5-19); Aspartate Amino Transferase 27 U/L (0-40); Blood Urea Nitrogen 25 mg/dL (8-23); Calcium 9.2 mg/dL (8.5-10.5); Carbon Dioxide 21 mmol/L (22-29); Chloride 102 mmol/L (98-107); Globulin 4.4 g/dL (1.3-4.6); Glomerular Filtration Rate 74.5 mL/min (90-130); Glucose 227 mg/dL (65-115); Osmolality Calculated 286 mOsm/kg (285-295); Potassium 3.9 mmol/L (3.5-5.1); Sodium 136 mmol/L (136-145); Total Bilirubin 0.4 mg/dL (0.15-1.2); Total Protein 7.4 g/dL (6.6-8.7)
[2019-07-26 04:22] LABS: Procalcitonin 0.25 ng/mL (0-0.5)
[2019-07-26] MEDS: pantoprazole 40 mg SDV IVP ×2 (05:53→18:25)
[2019-07-26 06:44] LABS: ABG PCO2 33.8 mmHg (35-45); ABG PH Result 7.42 (7.35-7.45); Arterial Blood Gas Hematocrit 41.1 % (42-52); Base Excess ABG -2.1 mmol/L (-2.0-2.0); Blood Gas Sample Site Brachial, right; Blood Gas Sample Type Arterial; HCO3 ABG 21.8 mmol/L (22-26); Oxygen Device NC
--- NOTE | 2019-07-26 07:00 | XR_ITS ---
WS: [id number] PORTABLE CHEST HISTORY: sob COMPARISON: 07/24/2019 Marked pulmonary hyperinflation. There is severe coarsened interstitial thickening throughout both abhijit ngs which has progressed since 07/24/2019. This suggests overlying pneumonia or edema. No pleural effus ion or pneumothorax. Cardiac size: Mildly enlarged cardiac silhouette. Mediastinum/Aorta: Mild atherosclerosis aorta. No osseous abnormality seen. XR/XR chest 1V portable [id number] IMPRESSION: 1. Severe pulmonary fibrotic changes. 2. New, progression of interstitial thickening since 07/24/2019. This suggests a cute pulmonary edema or pneumonia superimposed on the chronic lung disease.
[2019-07-26 07:45] LABS: Glucose Point of Care 222 mg/dL (70-110)
--- NOTE | 2019-07-26 08:00 | CT_ITS ---
WS: [id number] CT CHEST ANGIOGRAPHY WITH REFORMATS HISTORY: right heart strain, elevated trop, elevated d dimer TECHNIQUE: Contiguous axial images are obtained through the chest during arterial injection of intrav enous contrast. Images are reconstructed to evaluate the pulmonary arteries. MIP imaging also reviewe d. All CT scans at [facility] use at least one of these dose optimization techniques: aut omated exposure control; mA and/or kV adjustment per patient size (includes targeted exams where dose is matched to clinical indication); or iterative reconstruction. CONTRAST: Omnipaque 350; 95 mL IV. DLP: 574.54 mGy.cm COMPARISON: 08/25/2016 Adequate but limited opacification of the pulmonary artery. Significant amount of artifact through th e thorax. Pulmonary artery size is mildly prominent at 3.6 mm. There are no filling defects in the pr oximal and mid pulmonary arteries. Near the segmental branches the opacification is significantly hansen ited. Mild atherosclerosis aorta. Mild enlargement of the heart chambers. No significant pericardial or pleural effusions. Severe honey combing and pulmonary fibrosis. Groundglass areas of attenuation bilaterally and multi lobar with bul lous and bleb formation. Significant progression of disease since 2016. Superimposed pneumonitis and edema may be present as there is been a significant change in the lungs radiographically and just sev eral days. There is extensive mediastinal and hilar adenopathy. Large confluent soft tissue which is probably a conglomeration of lymph nodes at the RIGHT hilum measures 2.7 x 3.6 cm. Additional hilar lymph nodes measuring up to 2.3 cm. Stranding and nodular soft tissue in the trachea and proximal bronchial tree are probably retrained products of mucus. No adrenal mass. RIGHT convex curvature of the lumbar spine. No fractures. CT/CT angio chest PE protcl [id number] IMPRESSION: 1. Limited evaluation of the pulmonary arteries. Centrally and through the seg mental branches no pulmonary embolism. 2. Severe interstitial pulmonary fibrosis. Progressed since 08/25/2016. 3. Groundglass areas of attenuation are multilobar and probably representing i s an acute superimposed pneumonitis on chronic fibrosis. 4. Pulmonary hypertension. 5. Mediastinal and hilar adenopathy may be reactive.
[2019-07-26] MEDS: iohexol 350 mg/mL 100 mL Btl IV (08:52)
[2019-07-26] MEDS: FUROsemide 10 mg/mL SDV 4mL 40 MG IVP (09:39)
[2019-07-26] MEDS: atorvastatin 40 mg Tablet PO (09:40)
[2019-07-26] MEDS: aspirin 81 mg EC Tablet PO (09:40)
[2019-07-26] MEDS: azithromycin 250 mg Tablet 500 MG PO (09:40)
[2019-07-26] MEDS: dexmedetomidine 400 MCG in sodium chloride 0.9% (100 ml) 100 ML IV (09:41)
[2019-07-26] MEDS: enoxaparin 120 mg/0.8 mL Syringe 110 MG SUBCUT (09:41)
[2019-07-26 11:38] LABS: Glucose Point of Care 263 mg/dL (70-110)
--- NOTE | 2019-07-26 12:16 | P.PN_ITS ---
Subjective Subjective: Interval history: This morning patient states that his breathing is a bit better, but still having episodes of shortness of breath, mild retractions, mild nasal flaring, still is on 100% oxygen, him and his daughter have been talking, he is considering transferring to higher level center, no fevers, no chills, still has a cough, no chest pain Vitals/I&O/Wt Last Vital Signs Temp 98.9 F 07/26/19 00:00 Pulse 99 07/26/19 12:00 Resp 27 H 07/26/19 12:00 BP 165/100 07/26/19 12:00 Pulse Ox 93 07/26/19 12:00 07/25/19 07/26/19 07/26/19 22:59 06:59 14:59 Intake Total 508 / 1808 972.5 / 2780.5 344.375 / 344.375 Output Total 900 / 900 700 / 1600 2049 / 2049 Balance -392 / 908 272.5 / 1180.5 -1705.625 / -1705.625 Weight last 48 hrs Weight 111.584 kg Weight 108.862 kg Physical Exam Const: COMMON NORMALS: patient oriented x3 OTHER: In mild distress HENMT: COMMON NORMALS: normocephalic HEAD & SCALP: normocephalic Neck/C-Spine: COMMON NORMALS: no JVD Resp: EFFORT & INSPECTION: Yes tachypneic, Yes respiratory distress, Yes retractions and Yes uses accessory muscles AUSCULTATION: diminished lung sounds Cardio: COMMON NORMALS: no JVD, regular rate, regular rhythm, S1 normal heart sound present and S2 normal heart sound present RATE: regular rate RHYTHM: regular rhythm HEART SOUNDS: S1 normal heart sound present and S2 normal heart sound present GI: COMMON NORMALS: Normal to inspection, nondistended, normoactive bowel sounds present, Soft to palpation, non-tender, No hepatosplenomegaly present, no masses and no bruits PALPATION: Yes Soft to palpation and Yes No he patosplenomegaly present Extremity: COMMON NORMALS: capillary refill normal, no clubbing, cyanosis or edema, no calf tenderness and no pedal edema Neuro: COMMON NORMALS: patient oriented x3 Psych: COMMON NORMALS: mental status grossly normal Urinary Catheter Management^: Casey: Cath Placed During This Visit: yes Reason for Continuing Indwelling Catheter: Accurate Measurement of Urinary Output in Critically Ill Patients Urinary Catheter Date of Insertion: 07/24/19 Urinary Catheter Time of Insertion: 18:22 Data : 07/26/19 03:30 07/26/19 03:30 Micro: Microbiology 07/25/19 10:00 MRSA Culture - Final Nose 07/25/19 11:50 Gram Stain - Final Sputum - Expectorated Sputum 07/24/19 13:25 Blood Culture - Preliminary Blood NEGATIVE TO DATE 07/24/19 13:20 Blood Culture - Preliminary Blood NEGATIVE TO DATE 07/24/19 20:15 Legionella Urinary Antigen - Final Urine,Voided Bacterial Antigens - Final A&P Assessment and plan (1) Sepsis with acute hypoxic respiratory failure: Status: Acute Qualifiers: Sepsis type: sepsis due to unspecified organism Severe sepsis shock status: with septic shock Qualified Code(s): A41.9 - Sepsis, unspecified organism; R65.21 - Severe sepsis with septic shock; J96.01 - Acute respiratory failure with hypoxia (2) Septic shock: Status: Acute (3) Hypertension: Status: Acute Qualifiers: Hypertension type: essential hypertension Qualified Code(s): I10 - Essential (primary) hypertension (4) DM type 2 (diabetes mellitus, type 2): Status: Acute Qualifiers: Diabetes mellitus long term care administrator insulin use: without nursing home use Diabetes mellitus complication status: without complication Qualified Code(s): E11.9 - Type 2 diabetes mellitus without complications (5) Pulmonary fibrosis: Status: Acute (6) COPD (chronic obstructive pulmonary disease): Status: Acute Qualifiers: COPD type: unspecified COPD Qualified Code(s): J44.9 - Chronic obstructive pulmonary disease, unspecified (7) Right ventricular dysfunction: Status: Acute (8) MILENA (acute kidney injury): Status: Acute (9) NSTEMI (non-ST elevated myocardial infarction): Status: Acute Additional A&P Information Admit to ICU #1 acute hypoxic respiratory failure secondary to idiopathic pulmonary fibrosis, exacerbation of idiopathic pulmonary fibrosis -CT scan in 2017 showed There is extensive peripheral pleural thickening with retraction and volume loss. Subpleural lucencies with honeycombing and traction bronchiectasis in the upper and lower lobes. Stable subcentimeter nodules at the left apex and left lung base since 02/01/2014. No increase in size. Largest nodule the left lung base measures 8 mm. No pericardial or pleural effusions -Patient states that he has not seen a physician in about a year, has been noncompliant with medical therapy, has had progressive shortness of breath over the last a year, has not sought medical attention, but all in the last week has progressively gotten worse -Patient's AAA gradient on his ABGs are 589, indicating severe ventilation/perfusion mismatch, from severe pleural thickening, severe pare nchymal thickening severe airspace disease -Patient's echocardiogram shows severe right heart strain, severely decreased right ventricular systolic function,, right atrial pressure 20 mmHg, last tropo laz is 140 -CT scan this morning shows severe worsening of interstitial pulmonary fibrosis, severe honeycombing, new bilateral groundglass opacities that all indicate severe underlying interstitial pulmonary fibrosis, with acute exacerbation -I reviewed the case and patient CT scan with Dr. Michael lorenzo, and I and he felt that the majority of patient's initial presentation is from exacerbation of his idiopathic pulmonary fibrosis, likely his severe right heart strain, profound hypoxia, elevated d-dimer, elevated troponin, acute respiratory failure is secondary to worsening idiopathic pulmonary fibrosis -Dr. Rodriguez feels that high-dose steroids might provide some benefit, there is not much else we can do for him, patient's condition is terminal, has a high mortality rate in the next few weeks to month, and likely patient would not have any meaningful recovery if he were to be intubated, likely would not ever come off ventilator. - Other options include nintedanib, however patient already has such severe pulmonary fibrosis that its benefit would be unlikely -Lung transplant is another option, however patients over 65, and has a history of noncompliance -Currently patient is now 100% high flow, mild retractions, mild respiratory distress -Currently on high flow, looking short of breath, having nasal flaring, intercostal retractions -I discussed with the patient his terminal diagnosis of what it looks likely idiopathic pulmonary fibrosis, as above -I advised patient that above all we can do everything according to his wishes, we could continue all aggressive interventions if that were his wishes, or we could pursue a less invasive strategy, or even pursue comfort care, or transfer according to his and family wishes -But in all honesty I advised patient that likely he has a high mortality rate in the hospital, and that if he wanted to spend the remaining days of his life in hospitalized care or at home -Patient changed his CODE STATUS, does not want intubation, does not want mechanical ventilation, does not want chest compressions, above all does not want to be in pain or suffer his respiratory failure. Advised the risk and benefits, voiced understanding, all questions answered, agreed to agree to be DNR/DNI -I advised patient that if he starts to decline, to think about comfort care, being as comfortable as possible, patient states that he will think about this -Patient states that he will talk to his family about comfort care versus transfer to higher level of care, if he were to be transfer I advised to be transferred to [facility] to be considered for possible lung transplant or experimental treatments -Patient will discuss cost with family, make a decision this afternoon -Currently patient's prognosis is poor, status is critical 2. Septic shock: -I think that the likelihood pneumonia is very unlikely, COVID-19 was negative Patient reports a history of cough production over the past few days, fevers Continue empiric Zosyn and azithromycin and vancomycin for atypical pneumonia, MRSA pneumonia #3 acute hypoxic respiratory failure Echo evidence of, evidence of right heart strain on echocardiogram(though this may be related to underlying interstitial lung disease), Lower extremity Doppler performed in the ER is without any evidence of DVT. Albuterol inhalation every 4 hours standing. Continue Spiriva inhalation. Will change to nebulized on both once COVID testing results are obtained. #3 diabetes mellitus, currently with hyperglycemia. Continue high-dose sliding scale Levemir 5 units twice daily #4 hypotension, resolved, off Levophed #5 NSTEMI: Likely related to right heart strain, acute hypoxic respiratory failure, last troponin I 140 trending down, no chest pain, EKG shows T wave inversions in anterior chest leads, continue aspirin and statin #6 history of COPD and interstitial lung disease #7 acute kidney injury, likely as a result of sepsis. Creatinine 1.0 Gentle IV hydration. 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 [facility] Fwd Diagnoses Sepsis with acute hypoxic respiratory failure A41.9; R65.21; J96.01 Sepsis type: sepsis due to unspecified organism Severe sepsis shock status: with septic shock Septic shock A41.9; R65.21 Hypertension I10 Hypertension type: essential hypertension DM type 2 (diabetes mellitus, type 2) E11.9 Diabetes mellitus nursing home insulin use: without long term care administrator use Diabetes mellitus complication status: without complication Pulmonary fibrosis J84.10 COPD (chronic obstructive pulmonary disease) J44.9 COPD type: unspecified COPD Right ventricular dysfunction I51.9 MILENA (acute kidney injury) N17.9 NSTEMI (non-ST elevated myocardial infarction) I21.4
[2019-07-26 16:57] LABS: Glucose Point of Care 140 mg/dL (70-110)
--- NOTE | 2019-07-26 19:10 | PC.NURSE ---
Rounding Rounded with physician at bedside. Physician informed patient of [place] physician declining admission to [facility] and discussed further plan of care with poor prognosis. Pt agrees to stay a couple more days but verbalizes wanting to go home soon.
[2019-07-26] MEDS: TRAMadol 50 mg Tablet PO (20:03)
[2019-07-26 21:17] LABS: Glucose Point of Care 288 mg/dL (70-110)
--- NOTE | 2019-07-26 22:30 | PC.NURSE ---
Hypertension Dr. Green called for consistent BP trends 150's/100's. Called to restart valsartan home medication but unavailable in formulary in pharmacy. Orders received for hydralizine 10mg IVP Q 8hrs prn.
[2019-07-26] MEDS: hyDRALAzine 20 mg/mL INJ 1 mL 10 MG IVP (23:20)
[2019-07-26] MEDS: morphine 4 mg/mL SDV 1 mL 2 MG IVP (23:45)
[2019-07-26] MEDS: ondansetron 2 mg/ML SDV 2 mL 4 MG IVP (23:45)
--- NOTE | 2019-07-26 23:45 | PC.NURSE ---
Hypoxia/Dyspnea O2 sat 77% on monitor with 100% fio2 on, upon arriving in patient room patient labored using accessory muscles with retractions and diaphoretic. HR up to 150 .RT called to room placed on Bipap 22/15 FIO2 100%. Morphine 2mg IV given for air hunger, zofran 4mg given for nausea. After about 10 minutes on bipap, work of breathing decreased RR remains high at 33 and O2 saturations now 93-94% on bipap. HR down to 114. Dr. Green called with update.
[2019-07-27] VITALS (33 sets, daily range): BP systolic 118–149; BP diastolic 74–97; PULSE 80–109; RESP 13–37; TEMP 36.4–37.1; O2SAT 84–95
[2019-07-27] MEDS: dexmedetomidine 400 MCG in sodium chloride 0.9% (100 ml) 100 ML 11.6 MCG IV (01:09)
[2019-07-27] MEDS: ipratropium-albuterol 3 mL Neb INHALATION ×3 (02:49→19:42)
[2019-07-27] MEDS: piperacillin-tazobactam 3.375 GM in sodium chloride 0.9% (plus) 50 ML IV ×3 (03:21→19:57)
[2019-07-27 04:51] LABS: ABG PCO2 41.9 mmHg (35-45); ABG PH Result 7.41 (7.35-7.45); Arterial Blood Gas Hematocrit 40.5 % (42-52); Base Excess ABG 1.3 mmol/L (-2.0-2.0); Blood Gas Sample Site Brachial, right; Blood Gas Sample Type Arterial; HCO3 ABG 26.3 mmol/L (22-26); PO2 ABG 64.3 mmHg (80.0-100.0)
[2019-07-27 05:32] LABS: Basophils % 0.1 %; Hemoglobin 12.8 g/dL (11.7-16.6); Lymphocytes # 0.5 10^3/uL (0.8-4.8); Lymphocytes % 3.5 %; Mean Corpuscular Hemoglobin 30.3 pg (28.0-34.0); Mean Corpuscular Volume 94.8 fL (80-94); Mean Platelet Volume 12.1 fL (7.4-10.4); Monocytes # 0.4 10^3/uL (0.2-0.9); Neutrophils # 13.1 10^3/uL (1.8-7.7); Neutrophils % 92.9 %; Nucleated Red Blood Cells % 0 %; Platelet Count 275 10^3/cmm (130-400); Red Blood Count 4.22 10^6/uL (4.1-5.3); White Blood Count 14.1 10^3/uL (4.0-10.0)
[2019-07-27] MEDS: pantoprazole 40 mg SDV IVP ×2 (05:34→18:29)
[2019-07-27] MEDS: ondansetron 2 mg/ML SDV 2 mL 4 MG IVP (05:34)
[2019-07-27] MEDS: morphine 4 mg/mL SDV 1 mL 2 MG IVP ×3 (05:37→19:53)
[2019-07-27 05:48] LABS: INR 1.14 (0.8-1.2)
[2019-07-27 05:49] LABS: Alanine Aminotransferase 18 U/L (0-41); Albumin Level 3.1 g/dL (3.5-5.2); Alkaline Phosphatase 104 IU/L (40-130); Anion Gap 16.2 (5-19); Aspartate Amino Transferase 17 U/L (0-40); Blood Urea Nitrogen 26 mg/dL (8-23); Calcium 8.9 mg/dL (8.5-10.5); Carbon Dioxide 24 mmol/L (22-29); Chloride 100 mmol/L (98-107); Globulin 4.2 g/dL (1.3-4.6); Glomerular Filtration Rate 74.5 mL/min (90-130); Glucose 348 mg/dL (65-115); Osmolality Calculated 293 mOsm/kg (285-295); Potassium 4.2 mmol/L (3.5-5.1); Sodium 136 mmol/L (136-145); Total Bilirubin 0.3 mg/dL (0.15-1.2); Total Protein 7.3 g/dL (6.6-8.7)
[2019-07-27 05:50] LABS: Magnesium 2.2 mg/dL (1.7-2.3); Phosphorus 4.2 mg/dL (2.5-4.5)
[2019-07-27 05:59] LABS: Procalcitonin 0.14 ng/mL (0-0.5)
[2019-07-27 07:25] LABS: Glucose Point of Care 383 mg/dL (70-110)
[2019-07-27] MEDS: enoxaparin 40 mg/0.4 mL Syringe SUBCUT (07:45)
--- NOTE | 2019-07-27 09:00 | PC.SOCIAL ---
IMM Page 2 of IMM explained to patient. Initialed, dated, and timed and placed in chart. Copy provided to patient.
[2019-07-27] MEDS: aspirin 81 mg EC Tablet PO (09:26)
[2019-07-27] MEDS: atorvastatin 40 mg Tablet PO (09:26)
[2019-07-27] MEDS: azithromycin 250 mg Tablet 500 MG PO (09:26)
[2019-07-27 11:36] LABS: Glucose Point of Care 269 mg/dL (70-110)
--- NOTE | 2019-07-27 11:53 | P.PN_ITS ---
Subjective Subjective: Interval history: Last night, I had spoken to the pulmonary critical care physician at [facility] about transfer, he felt that there is nothing else that they could do for him their, the newer tyrosine kinase inhibitors would not be of significant benefit in him given his advanced idiopathic pulmonary fibrosis, they had no experimental treatments available to him, and they were concerned for patient's high risk of on transport, and high risk of in their facility given his critical state and that he would pass away without family being at bedside given him being in [place]. In addition I spoke to the transplant physician of our [facility], who felt that patient was not a ideal clinical candidate for a double lung transplant, and was a high risk of transport. Thus [facility] did not accept transfer. I also reached out to [facility] upon patient's request, however they did not have any critical care beds. I discussed with patient that he has terminal idiopathic pulmonary fibrosis, in all honesty there is not much else that any other facility can do for him, and as he is not a candidate for a double lung transplant all options for him have been exhausted. The plan last night was to continue antibiotic treatments, continue high-dose steroids, and to monitor his clinical progress as he is requiring high amounts of oxygen 100% FiO2 and 40 L, still having episodes of mild respiratory distress.. Patient agreed with all this, wanted to continue medical interventions, was not ready for comfort care, was not ready for hospice. This morning patient was examined, his breathing has improved to some degree, do es have intermittent episodes of tachypnea, no retractions, no nasal flaring, he feels a lot better, is still on 100% 40 L, still getting steroids, broad- spectrum antibiotics. I discussed with patient his options, the plan would be to continue medical interventions, and to see if his oxygen requirements would improve. But I do not feel that his oxygen requirements will not significantly improve, he will require high amount of oxygen which cannot be given at home. He will likely require to go to a select facility, or stay inpatient. And either going to select or staying inpatient might not be the ideal environment for an individual with a terminal diagnosis, frankly I do not know if he wants to spend the remaining days of his life under hospitalized care. I do not think that patient understands the gravity of the situation, I do not think he understands the gravity of his terminal diagnosis, I think that he has received a lot of information in the last 24 hours, a lot of it shocking, and he has not had time to process information. The other option would be hospice, inpatient hospice versus outpatient, however patient states that he does not want to pursue that option at this time. Vitals/I&O/Wt Last Vital Signs Temp 98.0 F 07/27/19 10:00 Pulse 90 07/27/19 10:00 Resp 24 H 07/27/19 10:00 BP 143/97 07/27/19 10:00 Pulse Ox 90 07/27/19 10:00 07/26/19 07/27/19 07/27/19 22:59 06:59 14:59 Intake Total 1398 / 2050.375 64.718 / 2115.093 410 / 410 Output Total 1650 / 3700 1100 / 4800 700 / 700 Balance -252 / -1649.625 -1035.282 / -2684.907 -290 / -290 Physical Exam Const: COMMON NORMALS: patient oriented x3 OTHER: In mild distress HENMT: COMMON NORMALS: normocephalic HEAD & SCALP: normocephalic Neck/C-Spine: COMMON NORMALS: no JVD Resp: EFFORT & INSPECTION: Yes tachypneic, Yes retractions and Yes uses accessory muscles AUSCULTATION: diminished lung sounds Cardio: COMMON NORMALS: no JVD, regular rate, regular rhythm, S1 normal heart sound present and S2 normal heart sound present RATE: regular rate RHYTHM: regular rhythm HEART SOUNDS: S1 normal heart sound present and S2 normal heart sound present GI: COMMON NORMALS: Normal to inspection, nondistended, normoactive bowel sounds present, Soft to palpation, non-tender, No hepatosplenomegaly present, no masses and no bruits PALPATION: Yes Soft to palpation and Yes No hepatosplenomegaly present Extremity: COMMON NORMALS: capillary refill normal, no clubbing, cyanosis or edema, no calf tenderness and no pedal edema Neuro: COMMON NORMALS: patient oriented x3 Psych: COMMON NORMALS: mental status grossly normal Urinary Catheter Management^: Casey: Cath Placed During This Visit: yes Reason for Continuing Indwelling Catheter: Accurate Measurement of Urinary Output in Critically Ill Patients Urinary Catheter Date of Insertion: 07/24/19 Urinary Catheter Time of Insertion: 18:22 Data : 07/27/19 05:00 07/27/19 05:00 Micro: Microbiology 07/24/19 15:00 Urine Culture - Final Urine,Clean Catch 07/25/19 11:50 Gram Stain - Final Sputum - Expectorated Sputum Sputum Culture - Preliminary A&P Assessment and plan (1) Sepsis with acute hypoxic respiratory failure: Status: Acute Qualifiers: Sepsis type: sepsis due to unspecified organism Severe sepsis shock status: with septic shock Qualified Code(s): A41.9 - Sepsis, unspecified organism; R65.21 - Severe sepsis with septic shock; J96.01 - Acute respiratory failure with hypoxia (2) Septic shock: Status: Acute (3) Hypertension: Status: Acute Qualifiers: Hypertension type: essential hypertension Qualified Code(s): I10 - Essential (primary) hypertension (4) DM type 2 (diabetes mellitus, type 2): Status: Acute Qualifiers: Diabetes mellitus ferry terminal agent insulin use: without ferry terminal agent use Diabetes mellitus complication status: without complication Qualified Code(s): E11.9 - Type 2 diabetes mellitus without complications (5) Pulmonary fibrosis: Status: Acute (6) COPD (chronic obstructive pulmonary disease): Status: Acute Qualifiers: COPD type: unspecified COPD Qualified Code(s): J44.9 - Chronic obstructive pulmonary disease, unspecified (7) Right ventricular dysfunction: Status: Acute (8) MILENA (acute kidney injury): Status: Acute (9) NSTEMI (non-ST elevated myocardial infarction): Status: Acute Additional A&P Information Admit to ICU #1 acute hypoxic respiratory failure secondary to idiopathic pulmonary fibrosis, exacerbation of idiopathic pulmonary fibrosis -CT scan in 2017 showed There is extensive peripheral pleural thickening with retraction and volume loss. Subpleural lucencies with honeycombing and traction bronchiectasis in the upper and lower lobes. Stable subcentimeter nodules at the left apex and left lung base since 02/01/2014. No increase in size. Largest nodule the left lung base measures 8 mm. No pericardial or pleural effusions -Patient states that he has not seen a physician in about a year, has been noncompliant with medical therapy, has had progressive shortness of breath over the last a year, has not sought medical attention, but all in the last week has progressively gotten worse -Patient's AAA gradient on his ABGs are 589, indicating severe ventilation/perfusion mismatch, from severe pleural thickening, severe p arenchymal thickening severe airspace disease -Patient's echocardiogram shows severe right heart strain, severely decreased right ventricular systolic function,, right atrial pressure 20 mmHg, last tr oponin is 140 -CT scan this morning shows severe worsening of interstitial pulmonary fibrosis, severe honeycombing, new bilateral groundglass opacities that all indicate severe underlying interstitial pulmonary fibrosis, with acute exacerbation -I reviewed the case and patient CT scan with Dr. Michael lorenzo, and I and he felt that the majority of patient's initial presentation is from exacerbation of his idiopathic pulmonary fibrosis, likely his severe right heart strain, profound hypoxia, elevated d-dimer, elevated troponin, acute respiratory failure is secondary to worsening idiopathic pulmonary fibrosis -Dr. Rodriguez feels that high-dose steroids might provide some benefit, there is not much else we can do for him, patient's condition is terminal, has a high mortality rate in the next few weeks to month, and likely patient would not have any meaningful recovery if he were to be intubated, likely would not ever come off ventilator. -After speaking with [facility], patient's is not a candidate for double lung transplant, nor is he a candidate for tyrosine kinase inhibitors, or experimental treatments, and they have rejected the transfer as there is nothing else they can do for him at this time -Currently patient is now 100% high flow 40 L, mild retractions, mild respir atory distress -Currently on high flow, looking a bit better, but still having nasal flaring, intercostal retractions at times -I discussed with the patient his terminal diagnosis of what it looks likely idiopathic pulmonary fibrosis, as above -I advised patient that above all we can do everything according to his wishes, we could continue all aggressive interventions if that were his wishes, or we could pursue a less invasive strategy, or even pursue comfort care; patient wants to continue medical interventions at this time -But in all honesty I advised patient that he likely he has a high mortality rate, likely has a few weeks to months remaining, does he want to spend this time and hospitalized care? -Patient reiterates multiple times that he does eventually want to go home -But the problem is his 100% FiO2 40 L cannot be given at home, and I do not for see his oxygen requirements improving, and high amounts of oxygen can only be given in hospitalized care or select or we can do the best we can with high liters of oxygen under hospice, patient wants to continue hospitalized care for now not ready to make a decision -Patient wants to be a DNR/DNI -I advised patient that if he starts to decline, to think about comfort care, being as comfortable as possible, patient states that he will think about this -Patient states that he will talk to his family about comfort care versus c ontinuing medical interventions -Currently patient's prognosis is poor, status is critical 2. Septic shock: -I think that the likelihood pneumonia is very unlikely, COVID-19 was negative Patient reports a history of cough production over the past few days, fevers Continue empiric Zosyn and azithromycin and vancomycin for atypical pneumonia, MRSA pneumonia #3 acute hypoxic respiratory failure Echo evidence of, evidence of right heart strain on echocardiogram(though this may be related to underlying interstitial lung disease), Lower extremity Doppler performed in the ER is without any evidence of DVT. Albuterol inhalation every 4 hours standing. Continue Spiriva inhalation. Will change to nebulized on both once COVID testing results are obtained. #3 diabetes mellitus, currently with hyperglycemia. Continue high-dose sliding scale Levemir 5 units twice daily #4 hypotension, resolved, off Levophed #5 NSTEMI: Likely related to right heart strain, acute hypoxic respiratory failure, last troponin I 140 trending down, no chest pain, EKG shows T wave inversions in anterior chest leads, continue aspirin and statin #6 history of COPD and interstitial lung disease #7 acute kidney injury, likely as a result of sepsis. Creatinine 1.0 Gentle IV hydration. Attestations Medical Necessity Statement*: Patient requires continued hospitalization due to acute respiratory failure secondary to idiopathic pulmonary fibrosis Coding Level of Care Code Acute Prop Sawyer for [facility] Fwd Diagnoses Sepsis with acute hypoxic respiratory failure A41.9; R65.21; J96.01 Sepsis type: sepsis due to unspecified organism Severe sepsis shock status: with septic shock Septic shock A41.9; R65.21 Hypertension I10 Hypertension type: essential hypertension DM type 2 (diabetes mellitus, type 2) E11.9 Diabetes mellitus prison insulin use: without prison use Diabetes mellitus complication status: without complication Pulmonary fibrosis J84.10 COPD (chronic obstructive pulmonary disease) J44.9 COPD type: unspecified COPD Right ventricular dysfunction I51.9 MILENA (acute kidney injury) N17.9 NSTEMI (non-ST elevated myocardial infarction) I21.4
[2019-07-27 12:36] LABS: COMPLEMENT, TOTAL (CH50) >60 U/mL (31-60)
--- NOTE | 2019-07-27 13:41 | PC.NURSE ---
Pt daughter Mary called, pt states that he did not care if informations was given to her. He also states that he would like another opinion. Note was sent to Dr. Romano for a pulmonalogy consult per the pt. waiting to hear back from him.
[2019-07-27] MEDS: dexmedetomidine 400 MCG in sodium chloride 0.9% (100 ml) 100 ML 8.7 MCG IV ×2 (14:40→14:58)
[2019-07-27 16:44] LABS: Glucose Point of Care 234 mg/dL (70-110)
[2019-07-27] MEDS: FUROsemide 10 mg/mL SDV 4mL 40 MG IVP (16:46)
--- NOTE | 2019-07-27 17:10 | P.CONIM_ITS ---
Providers/Reason For Consult Consulting Physican/Specialty*: Pulmonary critical care medicine Reason for Consult*: Acute hypoxic respiratory failure possibly secondary to acute exacerbation of IPF Attending Physician: Adam Cifuentes MD Primary Care Provider: Ernestina Estrella NP History of Present Illness History of Present Illness Mario Sherwood is a 69 year old male who presented to the hospital with worsening shortness of breath of few days duration. It appears that the patient has a previous diagnosis of COPD and an extensive history of smoking before quitting 8 years ago. The patient had not been evaluated by a physician for several years prior to coming to the hospital. According to the patient today, he thought he had COPD and did not take good care of himself. At home, this time the patient noticed his oxygen saturation to be in the 70s. Following hospital admission, the patient was treated with broad-spectrum antibiotic and suspected PE with full dose anticoagulation. I have reviewed the patient's previous data. The patient had a CT scan of his chest in 2017 which revealed bilateral upper lobe predominant centrilobular and paraseptal emphysema. In addition, the patient had honeycombing, traction bronchiectasis in the posterior basilar area. The patient had never been diagnosed with IPF in the past and had never received an anti-fibrotic therapy. Upon hospital admission, I had discussed his care plan with the primary team. The patient is currently on broad-spectrum antibiotics and was started on Solu- Medrol high-dose with a suspected diagnosis of acute exacerbation of IPF. The patient during this hospital admission had a CT scan of his chest which revealed significant progression of the honeycombing compared to 2017. The patient had expressed wishes to be transferred to a higher center. He was not accepted at [facility] as he was already receiving therapy for the IPF. The patient is currently 100% FiO2 40 L flow on high flow nasal cannula. The patient tells me that he is feeling better than how he was when he came in. His son was present at bedside and I have discussed all of this with him as well. The patient has cough, significant shortness of breath with exertion. Review of Systems Narrative: General: No fevers or chills Skin: No rash HEENT: No nasal congestion, rhinitis, sinusitis, sneezing, hoarseness of voice. Neck: There is no neck swelling or mass Respiratory: Please see my HPI. Cardiovascular: No chest pain, no peripheral edema Gastrointestinal: No abdominal pain, nausea, vomiting, melena or diarrhea Musculoskeletal: No joint pain or swelling, muscle weakness, morning stiffness, numbness or tingling. Neurological: Patient is awake alert and oriented x3, no paralysis, gross motor function is normal. Meds/Allergies Home Medications and Allergies Home Medications Medication Instructions Recorded Confirmed Last Taken Type diltiazem HCl 240 mg PO DAILY 07/24/19 07/24/19 07/23/19 History gabapentin 300 mg PO TID 07/24/19 07/24/19 Unknown History liraglutide [Victoza 3-Cassius] 1.8 mg SUBCUT DAILY 07/24/19 07/24/19 07/23/19 History tiotropium bromide [Spiriva with 1 cap INHALATION DAILY 07/24/19 07/24/19 Unknown History HandiHaler] tramadol 50 mg PO Q8H PRN 07/24/19 07/24/19 Unknown History valsartan 160 mg PO DAILY 07/24/19 07/24/19 07/23/19 History Allergies Allergy/AdvReac Type Severity Reaction Status Date / Time No Known Allergies Allergy Verified 07/24/19 13:19 Current Medications Current Medications Generic Name Dose Route Start Last Admin Trade Name Freq PRN Reason Stop Dose Admin Albuterol/Ipratropium 3 ml 07/24/19 18:35 07/27/19 08:18 Duoneb INHALATION 3 ml Q6H PRN Administration SHORTNESS OF BREATH Aspirin 81 mg 07/25/19 09:00 07/27/19 09:26 Aspirin Ec PO 81 mg DAILY PRAVIN Administration Atorvastatin Calcium 40 mg 07/25/19 09:00 07/27/19 09:26 Lipitor PO 40 mg DAILY PRAVIN Administration Azithromycin 500 mg 07/25/19 09:00 07/27/19 09:26 Zithromax PO 500 mg DAILY PRAVIN Administration Protocol Enoxaparin Sodium 40 mg 07/27/19 08:00 07/27/19 07:45 Lovenox SUBCUT 40 mg Q24H PRAVIN Administration Hydralazine HCl 10 mg 07/26/19 22:31 07/26/19 23:20 Apresoline IVP 10 mg Q8H PRN Administration bp>180/100mmhg Piperacillin Sod/Tazobactam 50 mls @ 12.5 mls/hr 07/24/19 19:00 07/27/19 11:40 Sod 3.375 gm/ Sodium Chloride IV 12.5 mls/hr Q8H PRAVIN Administration Protocol Dexmedetomidine HCl 400 mcg/ 104 mls @ 0 mls/hr 07/25/19 14:45 07/27/19 14:58 Sodium Chloride IV 0.3 mcg/kg/hr .Q0M PRAVIN 8.7 mls/hr Administration Protocol Per Protocol Methylprednisolone Sodium 258 mls @ 258 mls/hr 07/25/19 20:00 07/27/19 09:26 Succinate 500 mg/ Sodium IV 07/28/19 10:00 Not Given Chloride Q12H PRAVIN Vancomycin HCl 1,500 mg/ 250 mls @ 166.667 mls/hr 07/26/19 17:00 07/27/19 16:48 Sodium Chloride IV 166.7 mls/hr Q12H PRAVIN Administration Protocol Insulin Aspart 0 unit 07/24/19 21:00 07/27/19 11:40 Novolog SUBCUT 12 unit WM&BEDTIME PRAVIN Administration Protocol Insulin Detemir 10 unit 07/27/19 09:00 07/27/19 09:29 Levemir SUBCUT 10 unit BID PRAVIN Administration Ondansetron HCl 4 mg 07/24/19 15:35 07/27/19 05:34 Zofran IVP 4 mg Q6H PRN Administration NAUSEA AND VOMITING Pantoprazole Sodium 40 mg 07/25/19 18:30 07/27/19 05:34 Protonix IVP 40 mg Q12H PRAVIN Administration Tramadol HCl 50 mg 07/26/19 19:42 07/26/19 20:03 Ultram PO 50 mg Q6H PRN Administration MODERATE PAIN PFSH Acute PFSH: Medical History COPD (chronic obstructive pulmonary disease) DM type 2 (diabetes mellitus, type 2) GERD (gastroesophageal reflux disease) Hypertension Pulmonary fibrosis Social History Smoking and tobacco status: former smoker Vitals/I&O/Wt Last Vital Signs Temp 98.0 F 07/27/19 10:00 Pulse 85 07/27/19 13:30 Resp 13 07/27/19 13:30 BP 139/92 07/27/19 13:30 Pulse Ox 94 07/27/19 13:30 07/27/19 07/27/19 07/27/19 06:59 14:59 22:59 Intake Total 314.718 / 2365.093 766.75 / 766.75 Output Total 1100 / 4800 700 / 700 Balance -785.282 / -2434.907 66.75 / 66.75 Physical Exam Narrative: EXAM NARRATIVE: General: Patient is awake alert and oriented, in mild distress Neck: Positive for jugular venous distention Respiratory: Auscultation: Bilateral Velcro crackles almost all the way up top in the posterior lungs, no wheezing or rhonchi Cardiovascular: Regular rate and rhythm, S1-S2 present, no murmur, no peripheral edema. Abdomen: Soft, nontender, nondistended, positive bowel sound Musculoskeletal: No obvious joint deformity Skin: No rash, no evidence of erythema nodosum or multiforme. Neuro: Mental status is normal, no gross cranial nerve deficit, normal motor and coordination. Urinary Catheter Management^: Casey: Cath Placed During This Visit: yes Reason for Continuing Indwelling Catheter: Accurate Measurement of Urinary Output in Critically Ill Patients Urinary Catheter Date of Insertion: 07/24/19 Urinary Catheter Time of Insertion: 18:22 Data Micro: Micro: Microbiology 07/25/19 11:50 Gram Stain - Final Sputum - Expector ated Sputum Sputum Culture - P reliminary 07/24/19 15:00 Urine Culture - Fi nal Urine,Clean Catch Other Data: Other data: I have reviewed the patient's laboratory, microbiologic and radiologic data. Please see my HPI for the detailed radiology description. 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 He has an extensive history of smoking and has evidence of paraseptal and centrilobular emphysema in bilateral upper lobes. In addition the patient has developed changes consistent with usual interstitial pneumonia. The patient has posterior basilar disease with reticulation, no subpleural sparing, honeycombing and traction bronchiectasis. His chest radiology is consistent with definitive IPF. In addition, the patient has evidence of diffuse groundglass opacity. Which is likely suggestive of diffuse alveolar damage. The combination of these 2 is suggestive of an acute exacerbation of IPF. A superimposed infection cannot be ruled out. The patient is currently on broad-spectrum antibiotic and is also receiving high-dose steroid therapy. We will continue the high-dose steroid for 3 days. Complete a 10 to 14-day course of antibiotic. Acute exacerbation of IPF has very high mortality rate. 50% of patients in the hospital and has moderate up to 80% in 3 months time. He has already been rejected for transfer to [facility]. This course of action, the patient gets better with the steroid therapy and I can follow him up as outpatient or he can follow-up in a higher center. We have discussed all of this with the patient and his family. We will continue with the supportive therapy and hope for the best. Status: Acute (2) Acute respiratory failure with hypoxia: The patient is currently on high flow nasal cannula 100% oxygen with 40 L flow. It would be very difficult to come down on his FiO2 and I expect him to desaturate with minimal exertion. He could be transferred out of bed and sitting the chair. Status: Acute (3) Emphysema of lung: The patient also has evidence of emphysema bilaterally in the upper lobes predominantly. Status: Acute (4) Right ventricular dysfunction: The right ventricle dysfunction is likely secondary to pulmonary hypertension in the setting of pulmonary fibrosis and elevated pulmonary arter ial pressure. We will diurese the patient and hopefully that will help with the pulmonary function somewhat. Thank you for the consultation! I will continue to follow the patient as needed. Status: Acute Coding Level of Care Code Acute Nurses Medical Assistants Phlebotomists for [facility] Fwd Diagnoses IPF (idiopathic pulmonary fibrosis) J84.112 Acute respiratory failure with hypoxia J96.01 Emphysema of lung J43.9 Right ventricular dysfunction I51.9
[2019-07-27 21:06] LABS: Glucose Point of Care 351 mg/dL (70-110)
[2019-07-28] VITALS (36 sets, daily range): BP systolic 122–161; BP diastolic 72–109; PULSE 75–112; RESP 12–31; TEMP 36.2–37.1; O2SAT 82–95
[2019-07-28] MEDS: ipratropium-albuterol 3 mL Neb INHALATION ×4 (02:06→19:58)
[2019-07-28] MEDS: piperacillin-tazobactam 3.375 GM in sodium chloride 0.9% (plus) 50 ML IV ×3 (03:15→18:54)
[2019-07-28] MEDS: dexmedetomidine 400 MCG in sodium chloride 0.9% (100 ml) 100 ML 8.7 MCG IV (04:30)
[2019-07-28 04:36] LABS: Basophils % 0.1 %; Eosinophils % 0.1 %; Hematocrit 41.7 % (42.0-52.0); Lymphocytes # 0.6 10^3/uL (0.8-4.8); Lymphocytes % 4.7 %; Mean Corpuscular HGB Conc 31.2 g/dL (30.0-36.0); Mean Corpuscular Hemoglobin 29.5 pg (28.0-34.0); Mean Corpuscular Volume 94.6 fL (80-94); Mean Platelet Volume 12.2 fL (7.4-10.4); Monocytes # 0.6 10^3/uL (0.2-0.9); Monocytes % 4.8 %; Neutrophils # 11.7 10^3/uL (1.8-7.7); Neutrophils % 89.8 %; Nucleated Red Blood Cells % 0 %; Platelet Count 292 10^3/cmm (130-400); Red Blood Count 4.41 10^6/uL (4.1-5.3); Red Cell Distribution Width 13.8 % (12.1-15.1)
[2019-07-28 04:39] LABS: ABG PCO2 47.1 mmHg (35-45); ABG PH Result 7.43 (7.35-7.45); Arterial Blood Gas Hematocrit 42.1 % (42-52); Base Excess ABG 5.5 mmol/L (-2.0-2.0); Blood Gas Allen Test Pos; Blood Gas Sample Site Radial, right; Blood Gas Sample Type Arterial; HCO3 ABG 30.9 mmol/L (22-26); PO2 ABG 69.8 mmHg (80.0-100.0)
--- NOTE | 2019-07-28 04:45 | PC.NURSE ---
Bigeminy Pt rhythm now bigeminal. PVC's consistent with every other beat. Dr. Green notified via voalt with no new orders.
[2019-07-28 04:57] LABS: Alanine Aminotransferase 17 U/L (0-41); Albumin Level 3.4 g/dL (3.5-5.2); Alkaline Phosphatase 105 IU/L (40-130); Anion Gap 14.7 (5-19); Aspartate Amino Transferase 12 U/L (0-40); Blood Urea Nitrogen 27 mg/dL (8-23); Carbon Dioxide 28 mmol/L (22-29); Chloride 101 mmol/L (98-107); Globulin 3.3 g/dL (1.3-4.6); Glomerular Filtration Rate 84.2 mL/min (90-130); Glucose 274 mg/dL (65-115); Magnesium 2.4 mg/dL (1.7-2.3); Osmolality Calculated 295 mOsm/kg (285-295); Phosphorus 3.1 mg/dL (2.5-4.5); Potassium 4.7 mmol/L (3.5-5.1); Sodium 139 mmol/L (136-145); Total Bilirubin 0.3 mg/dL (0.15-1.2); Total Protein 6.7 g/dL (6.6-8.7); Vancomycin Trough 20.8 ug/mL (10-15)
[2019-07-28 05:02] LABS: INR 1.09 (0.8-1.2)
--- NOTE | 2019-07-28 05:21 | PC.PHAR ---
Vancomycin trough level at dose of 1500mg IVPB every 12 hours is 20.8l We will skip this dose and resume at 1250mg IVPB every 12 hours with another trough level to be obtained before the fourth 1250mg dose.
[2019-07-28 05:35] LABS: Procalcitonin 0.09 ng/mL (0-0.5)
[2019-07-28] MEDS: pantoprazole 40 mg SDV IVP ×2 (05:43→17:10)
[2019-07-28] MEDS: hyDRALAzine 20 mg/mL INJ 1 mL 10 MG IVP (05:56)
[2019-07-28] MEDS: enoxaparin 40 mg/0.4 mL Syringe SUBCUT (07:39)
[2019-07-28 08:40] LABS: Glucose Point of Care 284 mg/dL (70-110)
[2019-07-28] MEDS: atorvastatin 40 mg Tablet PO (08:54)
[2019-07-28] MEDS: azithromycin 250 mg Tablet 500 MG PO (08:55)
[2019-07-28] MEDS: morphine 4 mg/mL SDV 1 mL 2 MG IVP ×4 (10:04→20:33)
[2019-07-28 12:11] LABS: Glucose Point of Care 260 mg/dL (70-110)
[2019-07-28 14:55] LABS: ANA SCREEN, IFA NEGATIVE (NEGATIVE); CENTROMERE B ANTIBODY <1.0 NEG AI (<1.0 NEG); JO-1 ANTIBODY <1.0 NEG AI (<1.0 NEG); RNP ANTIBODY <1.0 NEG AI (<1.0 NEG); SCL-70 ANTIBODY <1.0 NEG AI (<1.0 NEG); SJOGREN'S ANTIBODY (SS-A) <1.0 NEG AI (<1.0 NEG); SM ANTIBODY <1.0 NEG AI (<1.0 NEG)
--- NOTE | 2019-07-28 15:01 | PM.PN ---
Subjective Subjective: Interval history: This morning patient is in better moods, feels less short of breath, states that he feels much better, remains afebrile overnight, still on 40 L 100% FiO2, patient had discussion with Dr. Rodriguez about idiopathic pulmonary fibrosis, his underlying emphysema, future directives, agreed on plan was to continue medical interventions to see if he improves in the next few days, see if you could wean his oxygen down to a reasonable level so that he could go home eventually Vitals/I&O/Wt Last Vital Signs Temp 98.8 F 07/28/19 12:00 Pulse 103 H 07/28/19 14:09 Resp 22 H 07/28/19 14:08 BP 158/86 07/28/19 14:00 Pulse Ox 86 L 07/28/19 14:08 07/28/19 07/28/19 07/28/19 06:59 14:59 22:59 Intake Total 166.47 / 1403.22 1458 / 1458 Output Total 750 / 5075 950 / 950 Balance -583.53 / -3671.78 508 / 508 Physical Exam Const: COMMON NORMALS: patient oriented x3 HENMT: COMMON NORMALS: normocephalic HEAD & SCALP: normocephalic Neck/C-Spine: COMMON NORMALS: no JVD Resp: COMMON NORMALS: normal respiratory effort, No retractions and No use of accessory muscles EFFORT & INSPECTION: Yes tachypneic AUSCULTATION: diminished lung sounds Cardio: COMMON NORMALS: no JVD, regular rate, regular rhythm, S1 normal heart sound present and S2 normal heart sound present RATE: regular rate RHYTHM: regular rhythm HEART SOUNDS: S1 normal heart sound present and S2 normal heart sound present GI: COMMON NORMALS: Normal to inspection, nondistended, normoactive bowel sounds present, Soft to palpation, non-tender, No hepatosplenomegaly present, no masses and no bruits PALPATION: Yes Soft to palpation and Yes No hepatosplenomegaly present Extremity: COMMON NORMALS: capillary refill normal, no clubbing, cyanosis or edema, no calf tenderness and no pedal edema Neuro: COMMON NORMALS: patient oriented x3 Psych: COMMON NORMALS: mental status grossly normal Urinary Catheter Management^: Casey: Cath Placed During This Visit: yes Reason for Continuing Indwelling Catheter: Accurate Measurement of Urinary Output in Critically Ill Patients Urinary Catheter Date of Insertion: 07/24/19 Urinary Catheter Time of Insertion: 18:22 Data : 07/28/19 04:12 07/28/19 04:12 Micro: Microbiology 07/25/19 11:50 Gram Stain - Final Sputum - Expectorated Sputum Sputum Culture - Final Methicillin Resis Staph Aureus A&P Assessment and plan (1) Sepsis with acute hypoxic respiratory failure: Status: Acute Qualifiers: Sepsis type: sepsis due to unspecified organism Severe sepsis shock status: with septic shock Qualified Code(s): A41.9 - Sepsis, unspecified organism; R65.21 - Severe sepsis with septic shock; J96.01 - Acute respiratory failure with hypoxia (2) Septic shock: Status: Acute (3) Hypertension: Status: Acute Qualifiers: Hypertension type: essential hypertension Qualified Code(s): I10 - Essential (primary) hypertension (4) DM type 2 (diabetes mellitus, type 2): Status: Acute Qualifiers: 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 intermediate use Diabetes mellitus complication status: without complication Qualified Code(s): E11.9 - Type 2 diabetes mellitus without complications (5) Pulmonary fibrosis: Status: Acute (6) COPD (chronic obstructive pulmonary disease): Status: Acute Qualifiers: COPD type: unspecified COPD Qualified Code(s): J44.9 - Chronic obstructive pulmonary disease, unspecified (7) Right ventricular dysfunction: Status: Acute (8) MILENA (acute kidney injury): Status: Acute (9) NSTEMI (non-ST elevated myocardial infarction): Status: Acute Additional A&P Information Admit to ICU #1 acute hypoxic respiratory failure secondary to idiopathic pulmonary fibrosis, exacerbation of idiopathic pulmonary fibrosis -CT scan in 2017 showed There is extensive peripheral pleural thickening with retraction and volume loss. Subpleural lucencies with honeycombing and traction bronchiectasis in the upper and lower lobes. Stable subcentimeter nodules at the left apex and left lung base since 02/01/2014. No increase in size. Largest nodule the left lung base measures 8 mm. No pericardial or pleural effusions -Patient states that he has not seen a physician in about a year, has been noncompliant with medical therapy, has had progressive shortness of breath over the last a year, has not sought medical attention, but all in the last week has progressively gotten worse -Patient's AAA gradient on his ABGs are 589, indicating severe ventilation/perfusion mismatch, from severe pleural thickening, severe parenchymal thickening severe airspace disease -Patient's echocardiogram shows severe right heart strain, severely decreased right ventricular systolic function,, right atrial pressure 20 mmHg, last troponin is 140 -CT scan this morning shows severe worsening of interstitial pulmonary fibrosis, severe honeycombing, new bilateral groundglass opacities that all indicate severe underlying interstitial pulmonary fibrosis, with acute exacerbation -I reviewed the case and patient CT scan with Dr. Michael lorenzo, and I and he felt that the majority of patient's initial presentation is from exacerbation of his idiopathic pulmonary fibrosis, likely his severe right heart strain, profound hypoxia, elevated d-dimer, elevated troponin, acute respiratory failure is secondary to worsening idiopathic pulmonary fibrosis -Dr. Rodriguez feels that high-dose steroids might provide some benefit, there is not much else we can do for him, patient's condition is terminal, has a high mortality rate in the next few weeks to month, and likely patient would not have any meaningful recovery if he were to be intubated, likely would not ever come off ventilator. -After speaking with [facility], patient's is not a candidate for double lung transplant, nor is he a candidate for tyrosine kinase inhibitors, or experimental treatments, and they have rejected the transfer as there is nothing else they can do for him at this time -Currently patient is on 100% high flow 40 L for the last 72 hours -Currently on high flow, looking a bit better, but still having nasal flaring, intercostal retractions at times -I discussed with the patient his terminal diagnosis of what it looks likely idiopathic pulmonary fibrosis, as above -I advised patient that above all we can do everything according to his wishes, we could continue all aggressive interventions if that were his wishes, or we could pursue a less invasive strategy, or even pursue comfort care; patient wants to continue medical interventions at this time -But in all honesty I advised patient that he likely he has a high mortality rate, likely has a few weeks to months remaining, does he want to spend this time under hospitalized care? -Patient reiterates multiple times that he does eventually want to go home -But the problem is his 100% FiO2 40 L cannot be given at home, and I do not for see his oxygen requirements improving, and high amounts of oxygen can only be given in hospitalized care or select or we can do the best we can with high liters of oxygen under hospice, patient wants to continue hospitalized care for now not ready to make a decision -Patient wants to be a DNR/DNI -I advised patient that if he starts to decline, to think about comfort care, being as comfortable as possible, patient states that he will think about this -Patient currently wants to continue medical interventions, wants to eventually go home,, wants to see if his oxygen requirements decreased -Did have a discussion with Dr. Rodriguez with son at bedside, all the above was explained to him, for now he wants to continue all medical interventions, to see if he could improve Plan: -Continue high flow, 100% FiO2 40 L, try to wean -BiPAP PRN as needed -Broad-spectrum antibiotics vancomycin, Zosyn, azithromycin -Received 6 doses of 500 mg of steroids for the last 72 hours, de-escalate to 80 mg every 8 hours starting tomorrow -We will have physical therapy work with the patient -Attempt to move out of the ICU in the next 24 to 48 hours 2. Septic shock: -I think that the likelihood pneumonia is very unlikely, COVID-19 was negative Patient reports a history of cough production over the past few days, fevers Continue empiric Zosyn and azithromycin and vancomycin for atypical pneumonia, MRSA pneumonia #3 acute hypoxic respiratory failure Echo evidence of, evidence of right heart strain on echocardiogram(though this may be related to underlying interstitial lung disease), Lower extremity Doppler performed in the ER is without any evidence of DVT. Albuterol inhalation every 4 hours standing. Continue Spiriva inhalation. Will change to nebulized on both once COVID testing results are obtained. #3 diabetes mellitus, currently with hyperglycemia. Continue high-dose sliding scale Levemir 10 units twice daily #4 hypotension, resolved, off Levophed #5 NSTEMI: Likely related to right heart strain, acute hypoxic respiratory failure, last troponin I 140 trending down, no chest pain, EKG shows T wave inversions in anterior chest leads, continue aspirin and statin #6 history of COPD and interstitial lung disease #7 acute kidney injury, likely as a result of sepsis. Creatinine 1.0 Gentle IV hydration. Attestations Medical Necessity Statement*: Patient requires continued hospitalization due to acute respiratory failure, idiopathic pulmonary fibrosis Coding Level of Care Code Acute Breaker Unit Assembler for [facility] Fwd Diagnoses Sepsis with acute hypoxic respiratory failure A41.9; R65.21; J96.01 Sepsis type: sepsis due to unspecified organism Severe sepsis shock status: with septic shock Septic shock A41.9; R65.21 Hypertension I10 Hypertension type: essential hypertension DM type 2 (diabetes mellitus, type 2) E11.9 Diabetes mellitus intermediate insulin use: without intermediate use Diabetes mellitus complication status: without complication Pulmonary fibrosis J84.10 COPD (chronic obstructive pulmonary disease) J44.9 COPD type: unspecified COPD Right ventricular dysfunction I51.9 MILENA (acute kidney injury) N17.9 NSTEMI (non-ST elevated myocardial infarction) I21.4
[2019-07-28] MEDS: FUROsemide 10 mg/mL SDV 4mL 40 MG IVP (15:32)
[2019-07-28 17:49] LABS: Glucose Point of Care 270 mg/dL (70-110)
[2019-07-28 20:54] LABS: Glucose Point of Care 285 mg/dL (70-110)
[2019-07-28] MEDS: dexmedetomidine 400 MCG in sodium chloride 0.9% (100 ml) 100 ML 5.8 MCG IV (21:34)
[2019-07-29] VITALS (34 sets, daily range): BP systolic 125–177; BP diastolic 52–134; PULSE 80–130; RESP 18–32; TEMP 37.2; O2SAT 79–93
[2019-07-29] MEDS: morphine 4 mg/mL SDV 1 mL 2 MG IVP ×5 (01:21→20:47)
[2019-07-29] MEDS: piperacillin-tazobactam 3.375 GM in sodium chloride 0.9% (plus) 50 ML IV ×3 (03:35→19:16)
[2019-07-29] MEDS: pantoprazole 40 mg SDV IVP (05:33)
[2019-07-29 05:58] LABS: Basophils % 0.1 %; Eosinophils % 0.1 %; Hematocrit 43.5 % (42.0-52.0); Hemoglobin 13.7 g/dL (11.7-16.6); Lymphocytes # 1.5 10^3/uL (0.8-4.8); Lymphocytes % 8.8 %; Mean Corpuscular HGB Conc 31.5 g/dL (30.0-36.0); Mean Corpuscular Hemoglobin 29.6 pg (28.0-34.0); Mean Platelet Volume 12.2 fL (7.4-10.4); Monocytes # 1.2 10^3/uL (0.2-0.9); Monocytes % 7.3 %; Neutrophils # 13.6 10^3/uL (1.8-7.7); Neutrophils % 83.2 %; Nucleated Red Blood Cells % 0 %; Platelet Count 293 10^3/cmm (130-400); Red Blood Count 4.63 10^6/uL (4.1-5.3); Red Cell Distribution Width 13.6 % (12.1-15.1); White Blood Count 16.4 10^3/uL (4.0-10.0)
[2019-07-29 06:24] LABS: Alanine Aminotransferase 15 U/L (0-41); Albumin Level 3.2 g/dL (3.5-5.2); Alkaline Phosphatase 92 IU/L (40-130); Anion Gap 14.3 (5-19); Aspartate Amino Transferase 11 U/L (0-40); Blood Urea Nitrogen 25 mg/dL (8-23); Calcium 8.9 mg/dL (8.5-10.5); Carbon Dioxide 32 mmol/L (22-29); Chloride 99 mmol/L (98-107); Globulin 3.6 g/dL (1.3-4.6); Glomerular Filtration Rate 84.2 mL/min (90-130); Glucose 209 mg/dL (65-115); Magnesium 2.2 mg/dL (1.7-2.3); Osmolality Calculated 295 mOsm/kg (285-295); Phosphorus 3.6 mg/dL (2.5-4.5); Potassium 4.3 mmol/L (3.5-5.1); Sodium 141 mmol/L (136-145); Total Bilirubin 0.4 mg/dL (0.15-1.2); Total Protein 6.8 g/dL (6.6-8.7)
[2019-07-29 06:30] LABS: Procalcitonin 0.07 ng/mL (0-0.5)
--- NOTE | 2019-07-29 07:00 | XR_ITS ---
WS: [id number] PORTABLE CHEST HISTORY: sob COMPARISON: 07/26/2019 Diffuse coarse interstitial opacifications over both lungs. Minimal sparing of the apices. Very simil ar pattern as compared to the most recent study. No pleural effusion or pneumothorax. Cardiac size: Mildly enlarged cardiac silhouette. Mediastinum/Aorta: Mild atherosclerosis aorta. No osseous abnormality seen. XR/XR chest 1V portable [id number] IMPRESSION: Advanced pulmonary fibrosis. Superimposed acute pneumonia would be hard to iden tify with this amount of chronic fibrotic disease.
[2019-07-29] MEDS: enoxaparin 40 mg/0.4 mL Syringe SUBCUT (07:29)
[2019-07-29] MEDS: ipratropium-albuterol 3 mL Neb INHALATION ×3 (07:33→20:21)
--- NOTE | 2019-07-29 07:43 | PC.NURSE ---
recd. resting in bed. c/o air hunger. req. m.s. given
[2019-07-29] MEDS: FUROsemide 10 mg/mL SDV 4mL 40 MG IVP (08:54)
[2019-07-29] MEDS: azithromycin 250 mg Tablet 500 MG PO (08:57)
[2019-07-29] MEDS: atorvastatin 40 mg Tablet PO (08:58)
[2019-07-29 09:07] LABS: Glucose Point of Care 185 mg/dL (70-110)
--- NOTE | 2019-07-29 10:38 | PC.NURSE ---
remains up in chair
--- NOTE | 2019-07-29 10:58 | PC.NURSE ---
remains up-on bsc
[2019-07-29 11:40] LABS: Glucose Point of Care 200 mg/dL (70-110)
--- NOTE | 2019-07-29 11:44 | PC.NURSE ---
cack to bed after moderate bm. joão. poorly. req. m.s. for air hunger and given
--- NOTE | 2019-07-29 15:17 | P.PN_ITS ---
Subjective Subjective: Interval history: This morning patient states that he feels a bit more short of breath than usual, had no sleep last night, no fevers, no chills, has a persistent cough, during my conversation with him this morning, his oxygen saturations did drop into the low 70s when he was talking, but would come up into the high 80s, mild retractions, mild nasal flaring, looked more short of breath than yesterday, patient still adamant about going home, currently requiring 83% FiO2 on 40 L, Vitals/I&O/Wt Last Vital Signs Temp 98.9 F 07/29/19 05:56 Pulse 110 H 07/29/19 14:12 Resp 22 H 07/29/19 14:08 BP 146/99 07/29/19 14:00 Pulse Ox 87 L 07/29/19 14:08 07/29/19 07/29/19 07/29/19 06:59 14:59 22:59 Intake Total 50 / 2499.53 530 / 530 Output Total 1100 / 4000 2200 / 2200 Balance -1050 / -1500.47 -1670 / -1670 Physical Exam Const: COMMON NORMALS: patient oriented x3 OTHER: In mild distress HENMT: COMMON NORMALS: normocephalic HEAD & SCALP: normocephalic Neck/C-Spine: COMMON NORMALS: no JVD Resp: COMMON NORMALS: normal respiratory effort, No retractions and No use of accessory muscles EFFORT & INSPECTION: Yes tachypneic and Yes retractions AUSCULTATION: diminished lung sounds Cardio: COMMON NORMALS: no JVD, regular rate, regular rhythm, S1 normal heart sound present and S2 normal heart sound present RATE: regular rate RHYTHM: regular rhythm HEART SOUNDS: S1 normal heart sound present and S2 normal heart sound present GI: COMMON NORMALS: Normal to inspection, nondistended, normoactive bowel sounds present, Soft to palpation, non-tender, No hepatosplenomegaly present, no masses and no bruits PALPATION: Yes Soft to palpation and Yes No hepatosplenomegaly present Extremity: COMMON NORMALS: capillary refill normal, no clubbing, cyanosis or edema, no calf tenderness and no pedal edema Neuro: COMMON NORMALS: patient oriented x3 Psych: COMMON NORMALS: mental status grossly normal Urinary Catheter Management^: Casey: Cath Placed During This Visit: yes Reason for Continuing Indwelling Catheter: Accurate Measurement of Urinary Output in Critically Ill Patients Urinary Catheter Date of Insertion: 07/24/19 Urinary Catheter Time of Insertion: 18:22 Data : 07/29/19 05:34 07/29/19 05:34 Micro: Microbiology 07/24/19 13:25 Blood Culture - Final Blood NO GROWTH AFTER 5 DAYS 07/24/19 13:20 Blood Culture - Final Blood NO GROWTH AFTER 5 DAYS 07/28/19 12:33 MRSA Culture - Final Nose 07/25/19 11:50 Gram Stain - Final Sputum - Expectorated Sputum Sputum Culture - Final Methicillin Resis Staph Aureus A&P Assessment and plan (1) Sepsis with acute hypoxic respiratory failure: Status: Acute Qualifiers: Sepsis type: sepsis due to unspecified organism Severe sepsis shock status: with septic shock Qualified Code(s): A41.9 - Sepsis, unspecified organism; R65.21 - Severe sepsis with septic shock; J96.01 - Acute respiratory failure with hypoxia (2) Septic shock: Status: Acute (3) Hypertension: Status: Acute Qualifiers: Hypertension type: essential hypertension Qualified Code(s): I10 - Essential (primary) hypertension (4) DM type 2 (diabetes mellitus, type 2): Status: Acute Qualifiers: Diabetes mellitus penitentiary insulin use: without penitentiary use Diabetes mellitus complication status: without complication Qualified Code(s): E11.9 - Type 2 diabetes mellitus without complications (5) Pulmonary fibrosis: Status: Acute (6) COPD (chronic obstructive pulmonary disease): Status: Acute Qualifiers: COPD type: unspecified COPD Qualified Code(s): J44.9 - Chronic obstructive pulmonary disease, unspecified (7) Right ventricular dysfunction: Status: Acute (8) MILENA (acute kidney injury): Status: Acute (9) NSTEMI (non-ST elevated myocardial infarction): Status: Acute Additional A&P Information Admit to ICU #1 acute hypoxic respiratory failure secondary to idiopathic pulmonary fibrosis, exacerbation of idiopathic pulmonary fibrosis -CT scan in 2017 showed There is extensive peripheral pleural thickening with retraction and volume loss. Subpleural lucencies with honeycombing and traction bronchiectasis in the upper and lower lobes. Stable subcentimeter nodules at the left apex and left lung base since 02/01/2014. No increase in size. Largest nodule the left lung base measures 8 mm. No pericardial or pleural effusions -Patient states that he has not seen a physician in about a year, has been noncompliant with medical therapy, has had progressive shortness of breath over the last a year, has not sought medical attention, but all in the last week has progressively gotten worse -Patient's AAA gradient on his ABGs are 589, indicating severe ventilation/perfusion mismatch, from severe pleural thickening, severe parenchymal thickening severe airspace disease -Patient's echocardiogram shows severe right heart strain, severely decreased right ventricular systolic function,, right atrial pressure 20 mmHg, last troponin is 140 -CT scan this morning shows severe worsening of interstitial pulmonary fibrosis, severe honeycombing, new bilateral groundglass opacities that all indicate severe underlying interstitial pulmonary fibrosis, with acute exacerbation -I reviewed the case and patient CT scan with Dr. Michael lorenzo, and I and he felt that the majority of patient's initial presentation is from exacerbation of his idiopathic pulmonary fibrosis, likely his severe right heart strain, profound hypoxia, elevated d-dimer, elevated troponin, acute respiratory failure is secondary to worsening idiopathic pulmonary fibrosis -Dr. Rodriguez feels that high-dose steroids might provide some benefit, there is not much else we can do for him, patient's condition is terminal, has a high mortality rate in the next few weeks to month, and likely patient would not have any meaningful recovery if he were to be intubated, likely would not ever come off ventilator. -After speaking with [facility], patient's is not a candidate for double lung transplant, nor is he a candidate for tyrosine kinase inhibitors, or experimental treatments, and they have rejected the transfer as there is nothing else they can do for him at this time -Currently patient is on 100% high flow 40 L for the last 72 hours -Currently on high flow, looking a bit better, but still having nasal flaring, intercostal retractions at times -I discussed with the patient his terminal diagnosis of what it looks likely idiopathic pulmonary fibrosis, as above -I advised patient that above all we can do everything according to his wishes, we could continue all aggressive interventions if that were his wishes, or we could pursue a less invasive strategy, or even pursue comfort care; patient wants to continue medical interventions at this time -But in all honesty I advised patient that he likely he has a high mortality rate, likely has a few weeks to months remaining, does he want to spend this time under hospitalized care? -Patient reiterates multiple times that he does eventually want to go home -But the problem is his 100% FiO2 40 L cannot be given at home, and I do not for see his oxygen requirements improving, and high amounts of oxygen can only be given in hospitalized care or select or we can do the best we can with high liters of oxygen under hospice, patient wants to continue hospitalized care for now not ready to make a decision -Patient wants to be a DNR/DNI -I advised patient that if he starts to decline, to think about comfort care, being as comfortable as possible, patient states that he will think about this -Patient currently wants to continue medical interventions, wants to eventually go home,, wants to see if his oxygen requirements decreased -Did have a discussion with Dr. Rodriguez with son at bedside, all the above was explained to him, for now he wants to continue all medical interventions, to see if he could improve Plan: -Continue high flow, 80% FiO2, 40 L, try to wean, BiPAP PRN -Broad-spectrum antibiotics vancomycin, Zosyn, azithromycin -Sputum cultures growing MRSA -Received 6 doses of 500 mg of steroids for the last 72 hours, de-escalate to 80 mg every 8 hours starting today -We will have physical therapy work with the patient -Attempt to move out of the ICU in the next 24 to 48 hours 2. Septic shock: -I think that the likelihood pneumonia is very unlikely, COVID-19 was negative Patient reports a history of cough production over the past few days, fevers Continue empiric Zosyn and azithromycin and vancomycin for atypical pneumonia, MRSA pneumonia #3 acute hypoxic respiratory failure Echo evidence of, evidence of right heart strain on echocardiogram(though this may be related to underlying interstitial lung disease), Lower extremity Doppler performed in the ER is without any evidence of DVT. Albuterol inhalation every 4 hours standing. Continue Spiriva inhalation. Will change to nebulized on both once COVID testing results are obtained. #3 diabetes mellitus, currently with hyperglycemia. Continue high-dose sliding scale Levemir 10 units twice daily #4 hypotension, resolved, off Levophed #5 NSTEMI: Likely related to right heart strain, acute hypoxic respiratory failure, last troponin I 140 trending down, no chest pain, EKG shows T wave inversions in anterior chest leads, continue aspirin and statin #6 history of COPD and interstitial lung disease #7 acute kidney injury, likely as a result of sepsis. Creatinine 1.0 Gentle IV hydration. 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
--- NOTE | 2019-07-29 15:40 | PC.SOCIAL ---
IMM Updated Page 2 of IMM updated and given to patient. Initialed, dated, and timed and placed back in chart.
[2019-07-29 17:16] LABS: THYROID PEROXIDASE ANTIBODIES 1 IU/mL (<9)
[2019-07-29 17:20] LABS: Oxygen Device HHF
[2019-07-29] MEDS: pantoprazole DR 40 mg Tablet PO ×2 (17:26→17:35)
[2019-07-29 17:48] LABS: Glucose Point of Care 231 mg/dL (70-110)
[2019-07-29 20:51] LABS: Glucose Point of Care 218 mg/dL (70-110)
[2019-07-29] MEDS: hyDRALAzine 20 mg/mL INJ 1 mL 10 MG IVP (21:45)
--- NOTE | 2019-07-29 23:46 | PC.NURSE ---
Pt states morphine works well for his air hunger. He is unable to sleep and states his heart feels fluttery. Pt told me he takes BP meds at home and he has not been receiving them since being admitted. Dr. Green was notified via voalte.
[2019-07-30] VITALS (44 sets, daily range): BP systolic 111–170; BP diastolic 63–123; PULSE 74–132; RESP 9–28; TEMP 36.9–37.1; O2SAT 85–96
[2019-07-30] MEDS: dilTIAZem ER (24HR) 240 mg Capsule PO ×2 (00:53→07:30)
[2019-07-30] MEDS: losartan 50 mg Tablet PO ×2 (00:54→07:27)
[2019-07-30] MEDS: morphine 4 mg/mL SDV 1 mL 2 MG IVP ×5 (00:55→19:59)
[2019-07-30] MEDS: piperacillin-tazobactam 3.375 GM in sodium chloride 0.9% (plus) 50 ML IV ×3 (02:18→16:24)
[2019-07-30 05:07] LABS: Basophils % 0.2 %; Hematocrit 47.8 % (42.0-52.0); Hemoglobin 15.3 g/dL (11.7-16.6); Lymphocytes # 0.8 10^3/uL (0.8-4.8); Lymphocytes % 4.9 %; Mean Corpuscular Hemoglobin 29.6 pg (28.0-34.0); Mean Corpuscular Volume 92.5 fL (80-94); Mean Platelet Volume 11.8 fL (7.4-10.4); Monocytes # 0.8 10^3/uL (0.2-0.9); Monocytes % 4.6 %; Neutrophils # 15.3 10^3/uL (1.8-7.7); Neutrophils % 89.3 %; Nucleated Red Blood Cells % 0 %; Platelet Count 348 10^3/cmm (130-400); Red Blood Count 5.17 10^6/uL (4.1-5.3); Red Cell Distribution Width 13.7 % (12.1-15.1); White Blood Count 17.2 10^3/uL (4.0-10.0)
[2019-07-30 05:28] LABS: Alanine Aminotransferase 15 U/L (0-41); Albumin Level 3.8 g/dL (3.5-5.2); Alkaline Phosphatase 94 IU/L (40-130); Anion Gap 16.4 (5-19); Aspartate Amino Transferase 15 U/L (0-40); Blood Urea Nitrogen 25 mg/dL (8-23); Calcium 9.4 mg/dL (8.5-10.5); Carbon Dioxide 30 mmol/L (22-29); Chloride 96 mmol/L (98-107); Globulin 3.4 g/dL (1.3-4.6); Glomerular Filtration Rate 84.2 mL/min (90-130); Glucose 261 mg/dL (65-115); Magnesium 2.5 mg/dL (1.7-2.3); Osmolality Calculated 292 mOsm/kg (285-295); Potassium 4.4 mmol/L (3.5-5.1); Sodium 138 mmol/L (136-145); Total Bilirubin 0.7 mg/dL (0.15-1.2); Total Protein 7.2 g/dL (6.6-8.7)
[2019-07-30 05:37] LABS: Procalcitonin 0.06 ng/mL (0-0.5)
[2019-07-30 05:42] LABS: Vancomycin Trough 27.7 ug/mL (10-15)
[2019-07-30] MEDS: ondansetron 2 mg/ML SDV 2 mL 4 MG IVP (06:18)
[2019-07-30 07:02] LABS: ABG PCO2 50.1 mmHg (35-45); ABG PH Result 7.45 (7.35-7.45); Alveolar-Arterial Oxygen Gradi 460.9 mmHg (5-10); Base Excess ABG 8.5 mmol/L (-2.0-2.0); Blood Gas Sample Site Brachial, right; Blood Gas Sample Type Arterial; Carboxyhemoglobin 1.2 %THgb (0.4-20.1); HCO3 ABG 34.4 mmol/L (22-26); HGB O2 Sat 72.6 % (95-100); Ionized Calcium Level - ABG 1.2 mmol/L (1.1-1.4); Methemoglobin 0.7 % (0.4-1.5); Oxygen Device NC; Oxygen Saturation ABG 73.9; PO2 ABG 40.8 mmHg (80.0-100.0); Potassium Level - ABG 4.2 mmol/L (3.5-5.0); Total Hemoglobin 16.3 g/dL (14-18)
[2019-07-30] MEDS: enoxaparin 40 mg/0.4 mL Syringe SUBCUT (07:26)
[2019-07-30] MEDS: TRAMadol 50 mg Tablet PO ×2 (07:27→15:42)
[2019-07-30] MEDS: atorvastatin 40 mg Tablet PO (07:27)
[2019-07-30] MEDS: azithromycin 250 mg Tablet 500 MG PO (07:28)
[2019-07-30] MEDS: linezolid premix 600 MG/300 ML PREMIX 300 MG IV ×2 (07:48→20:05)
[2019-07-30 07:49] LABS: Glucose Point of Care 251 mg/dL (70-110)
[2019-07-30] MEDS: ipratropium-albuterol 3 mL Neb INHALATION ×3 (08:01→20:02)
[2019-07-30] MEDS: metoprolol tartrate 25 mg Tablet PO ×2 (09:53→15:43)
[2019-07-30] MEDS: gabapentin 300 mg Capsule PO ×3 (09:53→21:06)
[2019-07-30] MEDS: metoclopramide 5 mg/mL SDV 2 mL IVP (09:53)
[2019-07-30] MEDS: FUROsemide 10 mg/mL SDV 4mL 40 MG IVP (09:54)
[2019-07-30 10:50] LABS: Glucose Point of Care 252 mg/dL (70-110)
--- NOTE | 2019-07-30 12:41 | PM.PN ---
Vitals/I&O/Wt Last Vital Signs Temp 98.9 F 07/29/19 05:56 Pulse 93 07/30/19 11:31 Resp 28 H 07/30/19 11:31 BP 155/104 07/30/19 07:27 Pulse Ox 92 07/30/19 11:31 07/29/19 07/30/19 07/30/19 22:59 06:59 14:59 Intake Total 354 / 934 350 / 1284 Output Total 1900 / 4100 2050 / 6150 Balance -1546 / -3166 -1700 / -4866 Physical Exam Const: COMMON NORMALS: patient oriented x3 OTHER: In mild distress HENMT: COMMON NORMALS: normocephalic HEAD & SCALP: normocephalic Neck/C-Spine: COMMON NORMALS: no JVD Resp: COMMON NORMALS: normal respiratory effort, No retractions and No use of accessory muscles EFFORT & INSPECTION: Yes tachypneic and Yes retractions AUSCULTATION: diminished lung sounds Cardio: COMMON NORMALS: no JVD, regular rate, regular rhythm, S1 normal heart sound present and S2 normal heart sound present RATE: regular rate RHYTHM: regular rhythm HEART SOUNDS: S1 normal heart sound present and S2 normal heart sound present GI: COMMON NORMALS: Normal to inspection, nondistended, normoactive bowel sounds present, Soft to palpation, non-tender, No hepatosplenomegaly present, no masses and no bruits PALPATION: Yes Soft to palpation and Yes No hepatosplenomegaly present Extremity: COMMON NORMALS: capillary refill normal, no clubbing, cyanosis or edema, no calf tenderness and no pedal edema Neuro: COMMON NORMALS: patient oriented x3 Psych: COMMON NORMALS: mental status grossly normal Urinary Catheter Management^: Casey: Cath Placed During This Visit: yes Reason for Continuing Indwelling Catheter: Accurate Measurement of Urinary Output in Critically Ill Patients Urinary Catheter Date of Insertion: 07/24/19 Urinary Catheter Time of Insertion: 18:22 Data : 07/30/19 04:26 07/30/19 04:26 Micro: Microbiology 07/24/19 13:25 Blood Culture - Final Blood NO GROWTH AFTER 5 DAYS 07/24/19 13:20 Blood Culture - Final Blood NO GROWTH AFTER 5 DAYS A&P Assessment and plan (1) Sepsis with acute hypoxic respiratory failure: Status: Acute Qualifiers: Sepsis type: sepsis due to unspecified organism Severe sepsis shock status: with septic shock Qualified Code(s): A41.9 - Sepsis, unspecified organism; R65.21 - Severe sepsis with septic shock; J96.01 - Acute respiratory failure with hypoxia (2) Septic shock: Status: Acute (3) Hypertension: Status: Acute Qualifiers: Hypertension type: essential hypertension Qualified Code(s): I10 - Essential (primary) hypertension (4) DM type 2 (diabetes mellitus, type 2): Status: Acute Qualifiers: 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 insulin 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: without residential use Diabetes mellitus complication status: without complication Qualified Code(s): E11.9 - Type 2 diabetes mellitus without complications (5) Pulmonary fibrosis: Status: Acute (6) COPD (chronic obstructive pulmonary disease): Status: Acute Qualifiers: COPD type: unspecified COPD Qualified Code(s): J44.9 - Chronic obstructive pulmonary disease, unspecified (7) Right ventricular dysfunction: Status: Acute (8) MILENA (acute kidney injury): Status: Acute (9) NSTEMI (non-ST elevated myocardial infarction): Status: Acute Additional A&P Information Admit to ICU #1 acute hypoxic respiratory failure secondary to idiopathic pulmonary fibrosis, exacerbation of idiopathic pulmonary fibrosis -CT scan in 2017 showed There is extensive peripheral pleural thickening with retraction and volume loss. Subpleural lucencies with honeycombing and traction bronchiectasis in the upper and lower lobes. Stable subcentimeter nodules at the left apex and left lung base since 02/01/2014. No increase in size. Largest nodule the left lung base measures 8 mm. No pericardial or pleural effusions -Patient states that he has not seen a physician in about a year, has been noncompliant with medical therapy, has had progressive shortness of breath over the last a year, has not sought medical attention, but all in the last week has progressively gotten worse -Patient's AAA gradient on his ABGs are 589, indicating severe ventilation/perfusion mismatch, from severe pleural thickening, severe parenchymal thickening severe airspace disease -Patient's echocardiogram shows severe right heart strain, severely decreased right ventricular systolic function,, right atrial pressure 20 mmHg, last troponin is 140 -CT scan this morning shows severe worsening of interstitial pulmonary fibrosis, severe honeycombing, new bilateral groundglass opacities that all indicate severe underlying interstitial pulmonary fibrosis, with acute exacerbation -I reviewed the case and patient CT scan with Dr. Rodriguez pulmonary, and I and he felt that the majority of patient's initial presentation is from exacerbation of his idiopathic pulmonary fibrosis, likely his severe right heart strain, profound hypoxia, elevated d-dimer, elevated troponin, acute respiratory failure is secondary to worsening idiopathic pulmonary fibrosis -Dr. Rodriguez feels that high-dose steroids might provide some benefit, there is not much else we can do for him, patient's condition is terminal, has a high mortality rate in the next few weeks to month, and likely patient would not have any meaningful recovery if he were to be intubated, likely would not ever come off ventilator. -After speaking with [facility], patient's is not a candidate for double lung transplant, nor is he a candidate for tyrosine kinase inhibitors, or experimental treatments, and they have rejected the transfer as there is nothing else they can do for him at this time -Currently patient is on 100% high flow 40 L for the last 72 hours -Currently on high flow, looking a bit better, but still having nasal flaring, intercostal retractions at times -I discussed with the patient his terminal diagnosis of what it looks likely idiopathic pulmonary fibrosis, as above -I advised patient that above all we can do everything according to his wishes, we could continue all aggressive interventions if that were his wishes, or we could pursue a less invasive strategy, or even pursue comfort care; patient wants to continue medical interventions at this time -But in all honesty I advised patient that he likely he has a high mortality rate, likely has a few weeks to months remaining, does he want to spend this time under hospitalized care? -Patient reiterates multiple times that he does eventually want to go home -But the problem is his 80-100% FiO2 40 L cannot be given at home, and I do not for see his oxygen requirements improving, and high amounts of oxygen can only be given in hospitalized care or select or we can do the best we can with high liters of oxygen under hospice, patient wants to continue hospitalized care for now not ready to make a decision -Patient yesterday changed his mind to FULL CODE -Patient currently wants to continue all medical interventions, wants to eventually go home,, wants to see if his oxygen requirements decreased -Did have a discussion with Dr. Rodriguez with son at bedside, all the above was explained to him, for now he wants to continue all medical interventions, to see if he could improve -I had discussion about SELECT for high oxygen requirement, patient stated he would talk to his family about Plan: -Continue high flow, 80% FiO2, 40 L, try to wean, BiPAP PRN -Broad-spectrum antibiotics Zosyn, azithromycin, and switch to Zyvox due to high vancomycin trough -Sputum cultures growing MRSA -Received 6 doses of 500 mg of steroids for the last 72 hours, de-escalate to 80 mg every 8 hours starting yesterday -We will have physical therapy work with the patient -Attempt to move out of the ICU in the next 24 to 48 hours 2. Septic shock: -I think that the likelihood pneumonia is very unlikely, COVID-19 was negative Patient reports a history of cough production over the past few days, fevers Continue empiric Zosyn and azithromycin and zyvox for atypical pneumonia, MRSA pneumonia #3 acute hypoxic respiratory failure Echo evidence of, evidence of right heart strain on echocardiogram(though this may be related to underlying interstitial lung disease), Lower extremity Doppler performed in the ER is without any evidence of DVT. Albuterol inhalation every 4 hours standing. Continue Spiriva inhalation. Will change to nebulized on both once COVID testing results are obtained. #3 diabetes mellitus, currently with hyperglycemia. Continue high-dose sliding scale Levemir 10 units twice daily #4 hypotension, resolved, off Levophed #5 NSTEMI: Likely related to right heart strain, acute hypoxic respiratory failure, last troponin I 140 trending down, no chest pain, EKG shows T wave inversions in anterior chest leads, continue aspirin and statin #6 history of COPD and interstitial lung disease #7 acute kidney injury, likely as a result of sepsi #8 Fluid overload: diuresed, negative [id number] since admission, give another lasix dose Attestations Medical Necessity Statement*: patient requires countinued hospitalization for acute respiratory failure Coding Level of Care Code Acute Industrial Controller for [facility] Diagnoses Sepsis with acute hypoxic respiratory failure A41.9; R65.21; J96.01 Sepsis type: sepsis due to unspecified organism Severe sepsis shock status: with septic shock Septic shock A41.9; R65.21 Hypertension I10 Hypertension type: essential hypertension DM type 2 (diabetes mellitus, type 2) E11.9 Diabetes mellitus residential insulin use: without ferry terminal supervisor use Diabetes mellitus complication status: without complication Pulmonary fibrosis J84.10 COPD (chronic obstructive pulmonary disease) J44.9 COPD type: unspecified COPD Right ventricular dysfunction I51.9 MILENA (acute kidney injury) N17.9 NSTEMI (non-ST elevated myocardial infarction) I21.4
[2019-07-30] MEDS: pantoprazole DR 40 mg Tablet PO (15:42)
[2019-07-30 16:00] LABS: Glucose Point of Care 270 mg/dL (70-110)
--- NOTE | 2019-07-30 16:46 | PC.NURSE ---
patient refused a bath. but did look forward to getting into a chair. he tolerated it well but oxygenates best at a straight up 90 degree angle and dips to mid 80S if kicked back in bed or chair. morphine given for nerves and air hunger helps. voided 2200 today, drank 750. eating moderately well. we spoke about code status and hospice, dnr and do not treat are not the same. unsure yet if he understands. his son is headed to nursing school .
[2019-07-30 21:05] LABS: Glucose Point of Care 261 mg/dL (70-110)
[2019-07-31] VITALS (40 sets, daily range): BP systolic 96–162; BP diastolic 54–109; PULSE 74–103; RESP 9–28; TEMP 36.6–36.8; O2SAT 85–94
[2019-07-31] MEDS: morphine 4 mg/mL SDV 1 mL 2 MG IVP ×5 (00:51→20:02)
[2019-07-31] MEDS: ipratropium-albuterol 3 mL Neb INHALATION ×4 (02:33→20:16)
[2019-07-31] MEDS: piperacillin-tazobactam 3.375 GM in sodium chloride 0.9% (plus) 50 ML IV ×2 (02:50→11:35)
[2019-07-31 04:02] LABS: Basophils # 0.1 10^3/uL (0.0-0.1); Basophils % 0.3 %; Hemoglobin 14.6 g/dL (11.7-16.6); Lymphocytes # 0.9 10^3/uL (0.8-4.8); Lymphocytes % 5.1 %; Mean Corpuscular HGB Conc 31.1 g/dL (30.0-36.0); Mean Corpuscular Hemoglobin 29.3 pg (28.0-34.0); Mean Corpuscular Volume 94.2 fL (80-94); Mean Platelet Volume 11.8 fL (7.4-10.4); Monocytes # 0.9 10^3/uL (0.2-0.9); Monocytes % 5.5 %; Nucleated Red Blood Cells % 0 %; Platelet Count 328 10^3/cmm (130-400); Red Blood Count 4.99 10^6/uL (4.1-5.3); Red Cell Distribution Width 13.4 % (12.1-15.1)
[2019-07-31 04:30] LABS: Alanine Aminotransferase 13 U/L (0-41); Albumin Level 3.5 g/dL (3.5-5.2); Alkaline Phosphatase 80 IU/L (40-130); Anion Gap 14.6 (5-19); Aspartate Amino Transferase 11 U/L (0-40); Blood Urea Nitrogen 31 mg/dL (8-23); Calcium 9.2 mg/dL (8.5-10.5); Carbon Dioxide 34 mmol/L (22-29); Chloride 96 mmol/L (98-107); Globulin 3.3 g/dL (1.3-4.6); Glomerular Filtration Rate 84.2 mL/min (90-130); Glucose 234 mg/dL (65-115); Magnesium 2.6 mg/dL (1.7-2.3); Osmolality Calculated 295 mOsm/kg (285-295); Phosphorus 4.1 mg/dL (2.5-4.5); Potassium 4.6 mmol/L (3.5-5.1); Sodium 140 mmol/L (136-145); Total Bilirubin 0.5 mg/dL (0.15-1.2); Total Protein 6.8 g/dL (6.6-8.7)
[2019-07-31 04:48] LABS: Procalcitonin 0.07 ng/mL (0-0.5)
[2019-07-31] MEDS: pantoprazole DR 40 mg Tablet PO ×2 (05:32→16:57)
[2019-07-31 07:19] LABS: Glucose Point of Care 244 mg/dL (70-110)
[2019-07-31] MEDS: enoxaparin 40 mg/0.4 mL Syringe SUBCUT (08:05)
[2019-07-31] MEDS: azithromycin 250 mg Tablet 500 MG PO (08:05)
[2019-07-31] MEDS: gabapentin 300 mg Capsule PO ×3 (08:06→22:00)
[2019-07-31] MEDS: metoprolol tartrate 25 mg Tablet PO ×2 (08:06→18:20)
[2019-07-31] MEDS: atorvastatin 40 mg Tablet PO (08:06)
[2019-07-31] MEDS: losartan 50 mg Tablet PO (08:07)
[2019-07-31] MEDS: dilTIAZem ER (24HR) 240 mg Capsule PO (08:07)
[2019-07-31] MEDS: linezolid premix 600 MG/300 ML PREMIX 300 MG IV ×2 (08:42→20:03)
--- NOTE | 2019-07-31 09:45 | PC.SOCIAL ---
IMM Update Pg 2 of IMM given and explained to patient who verbalized understanding. Copy provided.
[2019-07-31 11:27] LABS: Glucose Point of Care 360 mg/dL (70-110)
[2019-07-31 11:27] LABS: Glucose Point of Care 155 mg/dL (70-110)
--- NOTE | 2019-07-31 14:24 | P.PN_ITS ---
Subjective Subjective: Interval history: Patient states that he is doing better today, afebrile, no chest pain, breathing has significantly improved, still on 76% 40 L, he [facility] agreed [facility], waiting on authorization, is in much better mood today Vitals/I&O/Wt Last Vital Signs Temp 98.3 F 07/31/19 06:00 Pulse 78 07/31/19 14:24 Resp 20 H 07/31/19 14:22 BP 136/83 07/31/19 10:00 Pulse Ox 92 07/31/19 14:22 07/30/19 07/31/19 07/31/19 22:59 06:59 14:59 Intake Total 750 / 1650 50 / 1700 220 / 220 Output Total 1200 / 3300 1150 / 4450 Balance -450 / -1650 -1100 / -2750 220 / 220 Physical Exam Const: COMMON NORMALS: patient oriented x3 OTHER: In mild distress HENMT: COMMON NORMALS: normocephalic HEAD & SCALP: normocephalic Neck/C-Spine: COMMON NORMALS: no JVD Resp: COMMON NORMALS: normal respiratory effort, No retractions and No use of accessory muscles EFFORT & INSPECTION: Yes tachypneic, Yes respiratory distress and Yes retractions AUSCULTATION: diminished lung sounds Cardio: COMMON NORMALS: no JVD, regular rate, regular rhythm, S1 normal heart sound present and S2 normal heart sound present RATE: regular rate RHYTHM: regular rhythm HEART SOUNDS: S1 normal heart sound present and S2 normal heart sound present GI: COMMON NORMALS: Normal to inspection, nondistended, normoactive bowel sounds present, Soft to palpation, non-tender, No hepatosplenomegaly present, no masses and no bruits PALPATION: Yes Soft to palpation and Yes No hepatosplenomegaly present Extremity: COMMON NORMALS: capillary refill normal, no clubbing, cyanosis or edema, no calf tenderness and no pedal edema Neuro: COMMON NORMALS: patient oriented x3 Psych: COMMON NORMALS: mental status grossly normal Urinary Catheter Management^: Casey: Cath Placed During This Visit: yes Reason for Continuing Indwelling Catheter: Accurate Measurement of Urinary Output in Critically Ill Patients Urinary Catheter Date of Insertion: 07/24/19 Urinary Catheter Time of Insertion: 18:22 Data : 07/31/19 03:28 07/31/19 03:28 A&P Assessment and plan (1) Sepsis with acute hypoxic respiratory failure: Status: Acute Qualifiers: Sepsis type: sepsis due to unspecified organism Severe sepsis shock status: with septic shock Qualified Code(s): A41.9 - Sepsis, unspecified organism; R65.21 - Severe sepsis with septic shock; J96.01 - Acute respiratory failure with hypoxia (2) Septic shock: Status: Acute (3) Hypertension: Status: Acute Qualifiers: Hypertension type: essential hypertension Qualified Code(s): I10 - Essential (primary) hypertension (4) DM type 2 (diabetes mellitus, type 2): Status: Acute Qualifiers: Diabetes mellitus superintendent terminal insulin use: without nursing home use Diabetes mellitus complication status: without complication Qualified Code(s): E11.9 - Type 2 diabetes mellitus without complications (5) Pulmonary fibrosis: Status: Acute (6) COPD (chronic obstructive pulmonary disease): Status: Acute Qualifiers: COPD type: unspecified COPD Qualified Code(s): J44.9 - Chronic obstructive pulmonary disease, unspecified (7) Right ventricular dysfunction: Status: Acute (8) MILENA (acute kidney injury): Status: Acute (9) NSTEMI (non-ST elevated myocardial infarction): Status: Acute Additional A&P Information Admit to ICU #1 acute hypoxic respiratory failure secondary to idiopathic pulmonary fibrosis, exacerbation of idiopathic pulmonary fibrosis -CT scan in 2017 showed There is extensive peripheral pleural thickening with retraction and volume loss. Subpleural lucencies with honeycombing and traction bronchiectasis in the upper and lower lobes. Stable subcentimeter nodules at the left apex and left lung base since 02/01/2014. No increase in size. Largest nodule the left lung base measures 8 mm. No pericardial or pleural effusions -Patient states that he has not seen a physician in about a year, has been noncompliant with medical therapy, has had progressive shortness of breath over the last a year, has not sought medical attention, but all in the last week has progressively gotten worse -Patient's AAA gradient on his ABGs are 589, indicating severe ventilation/perfusion mismatch, from severe pleural thickening, severe parenchymal thickening severe airspace disease -Patient's echocardiogram shows severe right heart strain, severely decreased right ventricular systolic function,, right atrial pressure 20 mmHg, last troponin is 140 -CT scan this morning shows severe worsening of interstitial pulmonary fibrosis, severe honeycombing, new bilateral groundglass opacities that all indicate severe underlying interstitial pulmonary fibrosis, with acute exacerbation -I reviewed the case and patient CT scan with Dr. Michael lorenzo, and I and he felt that the majority of patient's initial presentation is from exacerbation of his idiopathic pulmonary fibrosis, likely his severe right heart strain, profound hypoxia, elevated d-dimer, elevated troponin, acute respiratory failure is secondary to worsening idiopathic pulmonary fibrosis -Dr. Rodriguez feels that high-dose steroids might provide some benefit, there is not much else we can do for him, patient's condition is terminal, has a high mortality rate in the next few weeks to month, and likely patient would not have any meaningful recovery if he were to be intubated, likely would not ever come off ventilator. -After speaking with [facility], patient's is not a candidate for double lung transplant, nor is he a candidate for tyrosine kinase inhibitors, or experimental treatments, and they have rejected the transfer as there is nothing else they can do for him at this time -Currently patient is on 100% high flow 40 L for the last 72 hours -Currently on high flow, looking a bit better, but still having nasal flaring, intercostal retractions at times -I discussed with the patient his terminal diagnosis of what it looks likely idiopathic pulmonary fibrosis, as above -I advised patient that above all we can do everything according to his wishes, we could continue all aggressive interventions if that were his wishes, or we could pursue a less invasive strategy, or even pursue comfort care; patient wants to continue medical interventions at this time -But in all honesty I advised patient that he likely he has a high mortality rate, likely has a few weeks to months remaining, does he want to spend this time under hospitalized care? -Patient reiterates multiple times that he does eventually want to go home -But the problem is his 80-100% FiO2 40 L cannot be given at home, and I do not for see his oxygen requirements improving, and high amounts of oxygen can only be given in hospitalized care or [facility] or we can do the best we can with high liters of oxygen under hospice, patient wants to continue hospitalized care for now not ready to make a decision -Patient yesterday changed his mind to FULL CODE -Patient currently wants to continue all medical interventions, wants to eventually go home,, wants to see if his oxygen requirements decreased -Did have a discussion with Dr. Rodriguez with son at bedside, all the above was explained to him, for now he wants to continue all medical interventions, to see if he could improve -I had discussion about [facility] for high oxygen requirement, patient stated he has agreed to go [facility] Plan: -Continue high flow, 70-80% FiO2, 40 L, try to wean, BiPAP PRN -Broad-spectrum antibiotics Zosyn, azithromycin, and switch to Zyvox due to high vancomycin trough have been de-escalated to Zyvox and Levaquin -Sputum cultures growing MRSA -Received 6 doses of 500 mg of steroids for the last 72 hours, de-escalated to 80 mg every 8 hours, now to 40 mg daily -We will have physical therapy work with the patient -Have faxed all referral over to [facility] -Attempt to move out of the ICU in the next 24 to 48 hours, but I am afraid that given his episodes of desaturation tachypnea, he would likely be sent back to the ICU Lasix 40 mg daily Severe right ventricular dysfunction with pulmonary hypertension: Secondary to idiopathic pulmonary fibrosis, Daily dose Lasix 2. Septic shock: -I think that the likelihood pneumonia is very unlikely, COVID-19 was negative Patient reports a history of cough production over the past few days, fevers Continue Zyvox and Levaquin, concerns for MRSA pneumonia #3 acute hypoxic respiratory failure Echo evidence of, evidence of right heart strain on echocardiogram(though this may be related to underlying interstitial lung disease), Lower extremity Doppler performed in the ER is without any evidence of DVT. Albuterol inhalation every 4 hours standing. Continue Spiriva inhalation. COVID testing negative x2 #3 diabetes mellitus, currently with hyperglycemia. Continue high-dose sliding scale Levemir 10 units twice daily #4 hypotension, resolved, off Levophed #5 NSTEMI: Likely related to right heart strain, acute hypoxic respiratory failure, last troponin I 140 trending down, no chest pain, EKG shows T wave inversions in anterior chest leads, continue aspirin and statin #6 history of COPD and interstitial lung disease #7 acute kidney injury, likely as a result of sepsi #8 Fluid overload: diuresed, negative [id number] since admission, daily dose Lasix Attestations Medical Necessity Statement*: Patient requires continued hospitalization for acute respiratory failure, awaiting [facility] placement Coding Level of Care Code 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[facility] Diagnoses Sepsis with acute hypoxic respiratory failure A41.9; R65.21; J96.01 Sepsis type: sepsis due to unspecified organism Severe sepsis shock status: with septic shock Septic shock A41.9; R65.21 Hypertension I10 Hypertension type: essential hypertension DM type 2 (diabetes mellitus, type 2) E11.9 Diabetes mellitus superintendent terminal insulin use: without superintendent terminal use Diabetes mellitus complication status: without complication Pulmonary fibrosis J84.10 COPD (chronic obstructive pulmonary disease) J44.9 COPD type: unspecified COPD Right ventricular dysfunction I51.9 MILENA (acute kidney injury) N17.9 NSTEMI (non-ST elevated myocardial infarction) I21.4
[2019-07-31] MEDS: FUROsemide 40 mg Tablet PO (15:34)
[2019-07-31 16:51] LABS: Glucose Point of Care 339 mg/dL (70-110)
--- NOTE | 2019-07-31 18:47 | PC.NURSE ---
Let Dr Romano know pt is running occasional irregular SR with a PVC every now and then, very sporadic.
[2019-08-01] VITALS (36 sets, daily range): BP systolic 113–154; BP diastolic 62–123; PULSE 68–98; RESP 11–34; TEMP 36.4–36.6; O2SAT 80–95
[2019-08-01] MEDS: morphine 4 mg/mL SDV 1 mL 2 MG IVP ×7 (00:59→20:41)
[2019-08-01] MEDS: ipratropium-albuterol 3 mL Neb INHALATION ×3 (02:16→22:12)
[2019-08-01 03:33] LABS: Basophils % 0.1 %; Hematocrit 45.1 % (42.0-52.0); Hemoglobin 14.6 g/dL (11.7-16.6); Lymphocytes # 1.3 10^3/uL (0.8-4.8); Lymphocytes % 6.4 %; Mean Corpuscular HGB Conc 32.4 g/dL (30.0-36.0); Mean Corpuscular Hemoglobin 30.4 pg (28.0-34.0); Mean Platelet Volume 11.4 fL (7.4-10.4); Monocytes # 1.9 10^3/uL (0.2-0.9); Monocytes % 9.3 %; Neutrophils # 16.6 10^3/uL (1.8-7.7); Neutrophils % 83.1 %; Nucleated Red Blood Cells % 0 %; Platelet Count 322 10^3/cmm (130-400); Red Cell Distribution Width 13.2 % (12.1-15.1)
[2019-08-01 03:39] LABS: Glucose Point of Care 325 mg/dL (70-110)
[2019-08-01 03:51] LABS: Alanine Aminotransferase 12 U/L (0-41); Albumin Level 3.4 g/dL (3.5-5.2); Alkaline Phosphatase 81 IU/L (40-130); Anion Gap 11.2 (5-19); Aspartate Amino Transferase 10 U/L (0-40); Blood Urea Nitrogen 27 mg/dL (8-23); Calcium 8.9 mg/dL (8.5-10.5); Carbon Dioxide 36 mmol/L (22-29); Chloride 95 mmol/L (98-107); Glomerular Filtration Rate 112.5 mL/min (90-130); Glucose 178 mg/dL (65-115); Magnesium 2.5 mg/dL (1.7-2.3); Osmolality Calculated 287 mOsm/kg (285-295); Phosphorus 3.4 mg/dL (2.5-4.5); Potassium 4.2 mmol/L (3.5-5.1); Sodium 138 mmol/L (136-145); Total Bilirubin 0.4 mg/dL (0.15-1.2); Total Protein 6.4 g/dL (6.6-8.7)
[2019-08-01 04:44] LABS: C Reactive Protein 2.4 mg/L (0.0-4.9)
[2019-08-01 04:46] LABS: Procalcitonin 0.06 ng/mL (0-0.5)
[2019-08-01] MEDS: levoFLOXacin 750 mg Tablet PO (05:31)
[2019-08-01] MEDS: pantoprazole DR 40 mg Tablet PO ×2 (05:32→18:29)
--- NOTE | 2019-08-01 05:45 | PC.NURSE ---
SHIFT SUMMARY PT HAS REMAINED ALERT AND ORIENTATED. PT ABLE TO MOVE SELF IN BED. PT HAS HAD ADEQUATE URINE OUTPUT. PT HAS REQUIRED MORPHINE TONIGHT REGULARLY FOR AIR HUNGER. PT DID NOT HAVE ANY SEVERE SHORTNESS OF BREATH, BUT HAS HAD BOUTS OF WHERE HE STATED HE JUST COULD NOT CATCH HIS BREATH, THESE EPISODES WOULD NOT LAST FOR LONG. PT HAS HAD NO OTHER COMPLAINTS. PT APPEARS IN GOOD SPIRITS AND IS VERY APPRECIATIVE OF HIS CARE. PT REMAINS ON HI FLOW NC. PT SATS WILL DROP QUICKLY IF HI FLOW COMES OFF, TO 80%, EVEN AT 80% O2 SAT PT IS NOT IN ANY DISTRESS, ONCE HE PUTS HI FLOW BACK IN NOSE PROPERLY, SATS COME UP. IV REMAINS PATENT.
--- NOTE | 2019-08-01 07:00 | XR_ITS ---
WS: [id number] XR chest 1V portable [id number] REASON FOR EXAM: sob FINDINGS: Comparisons were made to July 29, 2019. A diffuse reticular nodular pattern throughout both lung oneil with hypoaerated lungs consistent wit h idiopathic pulmonary fibrosis. The overall pattern is similar to the previous exam of 07/29/2019. There is arteriosclerotic changes in the arch of the aorta. XR/XR chest 1V portable [id number] IMPRESSION: Diffuse idiopathic pulmonary fibrosis
[2019-08-01 07:14] LABS: Glucose Point of Care 128 mg/dL (70-110)
[2019-08-01] MEDS: FUROsemide 40 mg Tablet PO (07:43)
[2019-08-01] MEDS: enoxaparin 40 mg/0.4 mL Syringe SUBCUT (07:43)
[2019-08-01] MEDS: linezolid premix 600 MG/300 ML PREMIX 300 MG IV ×2 (07:43→20:41)
[2019-08-01] MEDS: gabapentin 300 mg Capsule PO ×3 (08:41→20:41)
[2019-08-01] MEDS: dilTIAZem ER (24HR) 240 mg Capsule PO (08:41)
[2019-08-01] MEDS: predniSONE 20 mg Tablet 40 MG PO (08:41)
[2019-08-01] MEDS: metoprolol tartrate 25 mg Tablet PO ×2 (08:41→18:29)
[2019-08-01] MEDS: losartan 50 mg Tablet PO (08:41)
[2019-08-01] MEDS: atorvastatin 40 mg Tablet PO (08:41)
[2019-08-01] MEDS: potassium chloride ER 10 mEq Tablet 40 MEQ PO (08:42)
[2019-08-01 11:17] LABS: Glucose Point of Care 232 mg/dL (70-110)
[2019-08-01 15:11] LABS: COMPLEMENT COMPONENT C3C 250 mg/dL (82-185); COMPLEMENT COMPONENT C4C 27 mg/dL (15-53)
[2019-08-01 16:36] LABS: Glucose Point of Care 184 mg/dL (70-110)
--- NOTE | 2019-08-01 17:35 | PM.PN ---
Subjective Subjective: Interval history: No acute events overnight. Still remains on heated high flow NC. Medications: Reviewed: Yes Vitals/I&O/Wt Last Vital Signs Temp 97.7 F 08/01/19 08:00 Pulse 69 08/01/19 16:00 Resp 20 H 08/01/19 16:00 BP 135/81 08/01/19 16:00 Pulse Ox 89 L 08/01/19 16:00 08/01/19 08/01/19 08/01/19 06:59 14:59 22:59 Intake Total 120 / 1780 1180 / 1180 Output Total 950 / 2290 950 / 950 Balance -830 / -510 230 / 230 Physical Exam Narrative: EXAM NARRATIVE: GEN: Awake, alert and oriented, no acute distress CVS: S1S2 N RS: CTA B/L Abd: Soft, nt/nd , bs+ WATCHMAKER APPRENTICE: no focal neuro deficits Urinary Catheter Management^: Casey: Cath Placed During This Visit: yes Reason for Continuing Indwelling Catheter: Accurate Measurement of Urinary Output in Critically Ill Patients Urinary Catheter Date of Insertion: 07/24/19 Urinary Catheter Time of Insertion: 18:22 Data : 08/02/19 03:33 08/02/19 03:33 A&P Assessment and plan (1) Sepsis with acute hypoxic respiratory failure: Status: Acute Qualifiers: Sepsis type: sepsis due to unspecified organism Severe sepsis shock status: with septic shock Qualified Code(s): A41.9 - Sepsis, unspecified organism; R65.21 - Severe sepsis with septic shock; J96.01 - Acute respiratory failure with hypoxia (2) Septic shock: Status: Acute (3) Hypertension: Status: Acute Qualifiers: Hypertension type: essential hypertension Qualified Code(s): I10 - Essential (primary) hypertension (4) DM type 2 (diabetes mellitus, type 2): Status: Acute Qualifiers: Diabetes mellitus remote computer terminal operator insulin use: without remote computer terminal operator use Diabetes mellitus complication status: without complication Qualified Code(s): E11.9 - Type 2 diabetes mellitus without complications (5) Pulmonary fibrosis: Status: Acute (6) COPD (chronic obstructive pulmonary disease): Status: Acute Qualifiers: COPD type: unspecified COPD Qualified Code(s): J44.9 - Chronic obstructive pulmonary disease, unspecified (7) Right ventricular dysfunction: Status: Acute (8) MILENA (acute kidney injury): Status: Acute (9) NSTEMI (non-ST elevated myocardial infarction): Status: Acute Additional A&P Information #1 acute hypoxic respiratory failure secondary to idiopathic pulmonary fibrosis, exacerbation of idiopathic pulmonary fibrosis -Patient's echocardiogram shows severe right heart strain, severely decreased right ventricular systolic function,, right atrial pressure 20 mmHg, last troponin is 140 -CT scan this morning shows severe worsening of interstitial pulmonary fibrosis, severe honeycombing, new bilateral groundglass opacities that all indicate severe underlying interstitial pulmonary fibrosis, with acute exacerbation. -CT scan in 2017 showed There is extensive peripheral pleural thickening with retraction and volume loss. Subpleural lucencies with honeycombing and traction bronchiectasis in the upper and lower lobes. Stable subcentimeter nodules at the left apex and left lung base since 02/01/2014. No increase in size. Largest nodule the left lung base measures 8 mm. No pericardial or pleural effusions -proceeding now with trial of high-dose, appreciate pulmonary recommendations, patient's condition is terminal, has a high mortality rate in the next few weeks to month, and likely patient would not have any meaningful recovery if he were to be intubated, likely would not ever come off ventilator. -After speaking with [facility], patient's is not a candidate for double lung transplant, nor is he a candidate for tyrosine kinase inhibitors, or experimental treatments, and they have rejected the transfer as there is nothing else they can do for him at this time -Patient continues to be on hi Flow NC. -Patient reiterates multiple times that he does eventually want to go home in spite of understanding extremely poor prognosis. he has declined hospice or comfort measures. - Unable to replicate HFNC at home, therefore looking for transfer to LTAC facility as high amounts of oxygen can only be given in hospitalized care -Broad-spectrum antibiotics to continue -Sputum cultures growing MRSA -Received 6 doses of 500 mg of steroids for the last 72 hours, de-escalated to 80 mg every 8 hours, now to 40 mg daily # Severe right ventricular dysfunction with pulmonary hypertension: Secondary to idiopathic pulmonary fibrosis, Daily dose Lasix 2. Septic shock: Continue Zyvox and Levaquin, concerns for MRSA pneumonia #3 acute hypoxic respiratory failure Echo evidence of, evidence of right heart strain on echocardiogram(though this may be related to underlying interstitial lung disease), Lower extremity Doppler performed in the ER is without any evidence of DVT. Albuterol inhalation every 4 hours standing. Continue Spiriva inhalation. COVID testing negative x2 #3 diabetes mellitus, Continue high-dose sliding scale Levemir 10 units twice daily #4 hypotension, resolved, off Levophed #5 NSTEMI: Likely related to right heart strain, acute hypoxic respiratory failure, last troponin I 140 trending down, no chest pain, EKG shows T wave inversions in anterior chest leads, continue aspirin and statin #6 history of COPD and interstitial lung disease #7 acute kidney injury, likely as a result of sepsis #8 Fluid overload: diuresed, negative [id number] since admission, daily dose Lasix Attestations Medical Necessity Statement*: ongoing high 02 requirements, unable to wean off Coding Level of Care Code 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 [facility] Fwd Diagnoses Sepsis with acute hypoxic respiratory failure A41.9; R65.21; J96.01 Sepsis type: sepsis due to unspecified organism Severe sepsis shock status: with septic shock Septic shock A41.9; R65.21 Hypertension I10 Hypertension type: essential hypertension DM type 2 (diabetes mellitus, type 2) E11.9 Diabetes mellitus retirement insulin use: without remote computer terminal operator use Diabetes mellitus complication status: without complication Pulmonary fibrosis J84.10 COPD (chronic obstructive pulmonary disease) J44.9 COPD type: unspecified COPD Right ventricular dysfunction I51.9 MILENA (acute kidney injury) N17.9 NSTEMI (non-ST elevated myocardial infarction) I21.4
[2019-08-01 20:57] LABS: Glucose Point of Care 373 mg/dL (70-110)
--- NOTE | 2019-08-01 23:02 | PC.NURSE ---
Patient desat, sustained in lows 80s. RT Danilo notified, FiO2 increased to 99%, SpO2 improved to 90%. Patient denies SOB and is resting comfortably.
--- NOTE | 2019-08-01 23:10 | PC.NURSE ---
Titrated back to 72% FiO2 per RT, SpO2 improved back to baseline
[2019-08-02] VITALS (33 sets, daily range): BP systolic 117–155; BP diastolic 68–105; PULSE 61–97; RESP 11–32; TEMP 36.7–37.1; O2SAT 78–92
[2019-08-02] MEDS: morphine 4 mg/mL SDV 1 mL 2 MG IVP ×6 (01:26→23:53)
[2019-08-02 03:56] LABS: Basophils % 0.2 %; Eosinophils # 0.1 10^3/uL (0.0-0.8); Eosinophils % 0.4 %; Hematocrit 44.8 % (42.0-52.0); Hemoglobin 14.3 g/dL (11.7-16.6); Lymphocytes # 2.3 10^3/uL (0.8-4.8); Mean Corpuscular HGB Conc 31.9 g/dL (30.0-36.0); Mean Corpuscular Hemoglobin 30.2 pg (28.0-34.0); Mean Corpuscular Volume 94.7 fL (80-94); Mean Platelet Volume 11.7 fL (7.4-10.4); Monocytes # 2.4 10^3/uL (0.2-0.9); Monocytes % 10.3 %; Neutrophils # 17.8 10^3/uL (1.8-7.7); Neutrophils % 77.5 %; Nucleated Red Blood Cells % 0 %; Platelet Count 304 10^3/cmm (130-400); Red Blood Count 4.73 10^6/uL (4.1-5.3); Red Cell Distribution Width 13.3 % (12.1-15.1)
[2019-08-02] MEDS: ipratropium-albuterol 3 mL Neb INHALATION ×4 (03:57→20:45)
[2019-08-02 04:39] LABS: Alanine Aminotransferase 11 U/L (0-41); Alkaline Phosphatase 94 IU/L (40-130); Anion Gap 13.7 (5-19); Aspartate Amino Transferase 11 U/L (0-40); Blood Urea Nitrogen 26 mg/dL (8-23); C Reactive Protein 1.6 mg/L (0.0-4.9); Carbon Dioxide 33 mmol/L (22-29); Chloride 95 mmol/L (98-107); Globulin 3.1 g/dL (1.3-4.6); Glomerular Filtration Rate 84.2 mL/min (90-130); Glucose 241 mg/dL (65-115); Magnesium 2.3 mg/dL (1.7-2.3); Osmolality Calculated 289 mOsm/kg (285-295); Phosphorus 3.2 mg/dL (2.5-4.5); Potassium 4.7 mmol/L (3.5-5.1); Sodium 137 mmol/L (136-145); Total Bilirubin 0.4 mg/dL (0.15-1.2); Total Protein 6.1 g/dL (6.6-8.7)
[2019-08-02 04:44] LABS: Procalcitonin 0.06 ng/mL (0-0.5)
[2019-08-02] MEDS: pantoprazole DR 40 mg Tablet PO ×2 (06:06→17:29)
[2019-08-02] MEDS: levoFLOXacin 750 mg Tablet PO (06:06)
--- NOTE | 2019-08-02 07:16 | PC.NURSE ---
bedside report received. Pt has labored breathing at this time after moving around in the bed. Denies need for further intervention at this time. high flow cannula in place.
[2019-08-02 07:33] LABS: Glucose Point of Care 132 mg/dL (70-110)
[2019-08-02] MEDS: losartan 50 mg Tablet PO (08:15)
[2019-08-02] MEDS: potassium chloride ER 10 mEq Tablet 40 MEQ PO (08:16)
[2019-08-02] MEDS: dilTIAZem ER (24HR) 240 mg Capsule PO (08:17)
[2019-08-02] MEDS: gabapentin 300 mg Capsule PO ×3 (08:18→20:06)
[2019-08-02] MEDS: FUROsemide 40 mg Tablet PO (08:18)
[2019-08-02] MEDS: predniSONE 20 mg Tablet 40 MG PO (08:19)
[2019-08-02] MEDS: atorvastatin 40 mg Tablet PO (08:20)
[2019-08-02] MEDS: metoprolol tartrate 25 mg Tablet PO ×2 (08:20→17:29)
[2019-08-02] MEDS: enoxaparin 40 mg/0.4 mL Syringe SUBCUT (08:21)
[2019-08-02] MEDS: linezolid premix 600 MG/300 ML PREMIX 300 MG IV (08:24)
--- NOTE | 2019-08-02 09:37 | DCPLANNER ---
Pg 2 of IM updated and reviewed with pt. No questions, copy provided.
[2019-08-02 11:33] LABS: Glucose Point of Care 199 mg/dL (70-110)
--- NOTE | 2019-08-02 17:06 | PM.PN ---
Subjective Subjective: Interval history: No acute events overnight. Still remains on heated high flow NC. States feeling breathing is improving, less laborious. Desaturates with minimal movemen and transfers, unable to be weaned off significantly Medications: Reviewed: Yes Vitals/I&O/Wt Last Vital Signs Temp 98.8 F 08/02/19 12:00 Pulse 74 08/02/19 16:00 Resp 20 H 08/02/19 16:21 BP 123/70 08/02/19 16:00 Pulse Ox 92 08/02/19 16:21 08/02/19 08/02/19 08/02/19 06:59 14:59 22:59 Intake Total 540 / 540 200 / 740 Output Total 760 / 2160 1075 / 1075 450 / 1525 Balance -760 / 60 -535 / -535 -250 / -785 Physical Exam Narrative: EXAM NARRATIVE: GEN: Awake, alert and oriented, no acute distress CVS: S1S2 N RS: B/L fine crackles to auscultation Abd: Soft, nt/nd , bs+ MEDIA MONITOR: no focal neuro deficits EXT: no pedal edema Urinary Catheter Management^: Casey: Cath Placed During This Visit: yes Reason for Continuing Indwelling Catheter: Accurate Measurement of Urinary Output in Critically Ill Patients Urinary Catheter Date of Insertion: 07/24/19 Urinary Catheter Time of Insertion: 18:22 Data : 08/02/19 03:33 08/02/19 03:33 A&P Assessment and plan (1) Sepsis with acute hypoxic respiratory failure: Status: Acute Qualifiers: Sepsis type: sepsis due to unspecified organism Severe sepsis shock status: with septic shock Qualified Code(s): A41.9 - Sepsis, unspecified organism; R65.21 - Severe sepsis with septic shock; J96.01 - Acute respiratory failure with hypoxia (2) Septic shock: Status: Acute (3) Hypertension: Status: Acute Qualifiers: Hypertension type: essential hypertension Qualified Code(s): I10 - Essential (primary) hypertension (4) DM type 2 (diabetes mellitus, type 2): Status: Acute Qualifiers: Diabetes mellitus group home insulin use: without exterminator helper termite use Diabetes mellitus complication status: without complication Qualified Code(s): E11.9 - Type 2 diabetes mellitus without complications (5) Pulmonary fibrosis: Status: Acute (6) COPD (chronic obstructive pulmonary disease): Status: Acute Qualifiers: COPD type: unspecified COPD Qualified Code(s): J44.9 - Chronic obstructive pulmonary disease, unspecified (7) Right ventricular dysfunction: Status: Acute (8) MILENA (acute kidney injury): Status: Acute (9) NSTEMI (non-ST elevated myocardial infarction): Status: Acute Additional A&P Information #1 acute hypoxic respiratory failure secondary to idiopathic pulmonary fibrosis, exacerbation of idiopathic pulmonary fibrosis -Patient's echocardiogram shows severe right heart strain, severely decreased right ventricular systolic function,, right atrial pressure 20 mmHg, last troponin is 140 -CT scan shows severe worsening of interstitial pulmonary fibrosis, severe honeycombing, new bilateral groundglass opacities that all indicate severe underlying interstitial pulmonary fibrosis, with acute exacerbation. -CT scan in 2017 showed There is extensive peripheral pleural thickening with retraction and volume loss. Subpleural lucencies with honeycombing and traction bronchiectasis in the upper and lower lobes. Stable subcentimeter nodules at the left apex and left lung base since 02/01/2014. No increase in size. Largest nodule the left lung base measures 8 mm. No pericardial or pleural effusions -Currently on high dose steroids, appreciate pulmonary recommendations, patient's condition is terminal, has a high mortality rate in the next few weeks to month, and likely patient would not have any meaningful recovery if he were to be intubated, likely would not ever come off ventilator. -After speaking with [facility], patient's is not a candidate for double lung transplant, nor is he a candidate for tyrosine kinase inhibitors, or experimental treatments, and they have rejected the transfer as there is nothing else they can do for him at this time -Patient continues to be on hi Flow NC -Patient reiterates multiple times that he does eventually want to go home in spite of understanding extremely poor prognosis. He has declined hospice or comfort measures. - Unable to replicate HFNC at home, therefore looking for transfer to LTAC facility as high amounts of oxygen can only be given in hospitalized care -Broad-spectrum antibiotics to be discontinued today, Patoent has negative procalcitonin, extensive empiric abx course since 07/24/19. -Continue prednisone 40 mg daily - ad inhaled budesonide BID # Severe right ventricular dysfunction with pulmonary hypertension: Secondary to idiopathic pulmonary fibrosis, Daily dose Lasix 2. Septic shock, now resolved D/c antibiotics, adequate course since 6/7 #3 acute hypoxic respiratory failure Echo evidence of right heart strain on echocardiogram (though this may be related to underlying interstitial lung disease) Lower extremity Doppler performed in the ER is without any evidence of DVT. Albuterol inhalation every 4 hours standing. Continue Spiriva inhalation. Add budesonide COVID testing negative x2 #3 diabetes mellitus, Continue high-dose sliding scale + levemir 15 U bid #4 hypotension, resolved, off Levophed #5 NSTEMI: Likely related to right heart strain, acute hypoxic respiratory failure, last troponin I 140 trending down, no chest pain, EKG shows T wave inversions in anterior chest leads, continue aspirin and statin #6 history of COPD and interstitial lung disease #7 acute kidney injury, likely as a result of sepsis #8 Fluid overload: diuresed, negative [id number] since admission, daily dose Lasix Attestations Medical Necessity Statement*: high 02 requirements related to worsening IPF, unable to titrate off, needs transfer to LTAC, awaiting insurance approval Coding Level of Care Code Acute Value Analysis Coordinator for g Fwd Diagnoses Sepsis with acute hypoxic respiratory failure A41.9; R65.21; J96.01 Sepsis type: sepsis due to unspecified organism Severe sepsis shock status: with septic shock Septic shock A41.9; R65.21 Hypertension I10 Hypertension type: essential hypertension DM type 2 (diabetes mellitus, type 2) E11.9 Diabetes mellitus exterminator helper termite insulin use: without exterminator helper termite use Diabetes mellitus complication status: without complication Pulmonary fibrosis J84.10 COPD (chronic obstructive pulmonary disease) J44.9 COPD type: unspecified COPD Right ventricular dysfunction I51.9 MILENA (acute kidney injury) N17.9 NSTEMI (non-ST elevated myocardial infarction) I21.4
[2019-08-02 17:18] LABS: Glucose Point of Care 346 mg/dL (70-110)
[2019-08-02 20:05] LABS: Glucose Point of Care 293 mg/dL (70-110)
[2019-08-02] MEDS: budesonide 0.5 mg/2 mL Neb INHALATION (20:45)
[2019-08-03] VITALS (43 sets, daily range): BP systolic 111–154; BP diastolic 70–115; PULSE 68–115; RESP 12–32; TEMP 36.8–37.1; O2SAT 78–93
--- NOTE | 2019-08-03 02:27 | PC.NURSE ---
Patient resting well, sleeping most of night. Morphine has been effective for relief of air hunger. 70-80% HFNC. Patient feels breathing has improved.
[2019-08-03] MEDS: ipratropium-albuterol 3 mL Neb INHALATION ×4 (03:19→20:46)
[2019-08-03] MEDS: morphine 4 mg/mL SDV 1 mL 2 MG IVP ×6 (04:12→21:04)
[2019-08-03 05:06] LABS: Basophils # 0.1 10^3/uL (0.0-0.1); Basophils % 0.3 %; Eosinophils # 0.2 10^3/uL (0.0-0.8); Eosinophils % 0.9 %; Hematocrit 47.6 % (42.0-52.0); Hemoglobin 15.2 g/dL (11.7-16.6); Lymphocytes % 14.5 %; Mean Corpuscular HGB Conc 31.9 g/dL (30.0-36.0); Mean Corpuscular Hemoglobin 29.8 pg (28.0-34.0); Mean Corpuscular Volume 93.3 fL (80-94); Mean Platelet Volume 12.2 fL (7.4-10.4); Monocytes # 1.8 10^3/uL (0.2-0.9); Monocytes % 9.1 %; Neutrophils % 73.9 %; Nucleated Red Blood Cells % 0 %; Platelet Count 292 10^3/cmm (130-400); Red Cell Distribution Width 13.4 % (12.1-15.1); White Blood Count 20.3 10^3/uL (4.0-10.0)
--- NOTE | 2019-08-03 05:24 | PC.NURSE ---
Patient desat to 80, discussed with RT Soto, HFNC FiO2 increased to 99% with little improvement in SpO2. Patient mentation fine, states he does not want to try PRN BiPAP to improve oxygenation and that he would just rip it off despite benefits of wearing and risks of not wearing it explained. SpO2 slowly improving, instructed on breathing techniques to improve Oxygen delivery.
--- NOTE | 2019-08-03 05:30 | PC.NURSE ---
SpO2 improved to 92%
[2019-08-03 05:31] LABS: Alanine Aminotransferase 11 U/L (0-41); Albumin Level 3.1 g/dL (3.5-5.2); Alkaline Phosphatase 94 IU/L (40-130); Aspartate Amino Transferase 11 U/L (0-40); Blood Urea Nitrogen 26 mg/dL (8-23); Calcium 8.8 mg/dL (8.5-10.5); Carbon Dioxide 32 mmol/L (22-29); Chloride 95 mmol/L (98-107); Glomerular Filtration Rate 84.2 mL/min (90-130); Glucose 341 mg/dL (65-115); Magnesium 2.3 mg/dL (1.7-2.3); Osmolality Calculated 292 mOsm/kg (285-295); Sodium 136 mmol/L (136-145); Total Bilirubin 0.5 mg/dL (0.15-1.2); Total Protein 6.1 g/dL (6.6-8.7)
[2019-08-03] MEDS: pantoprazole DR 40 mg Tablet PO ×2 (06:22→17:04)
[2019-08-03] MEDS: budesonide 0.5 mg/2 mL Neb INHALATION ×2 (08:11→20:46)
[2019-08-03] MEDS: predniSONE 20 mg Tablet 40 MG PO (08:23)
[2019-08-03] MEDS: potassium chloride ER 10 mEq Tablet 40 MEQ PO (08:23)
[2019-08-03] MEDS: dilTIAZem ER (24HR) 240 mg Capsule PO (08:23)
[2019-08-03] MEDS: enoxaparin 40 mg/0.4 mL Syringe SUBCUT (08:23)
[2019-08-03] MEDS: atorvastatin 40 mg Tablet PO (08:24)
[2019-08-03] MEDS: metoprolol tartrate 25 mg Tablet PO ×2 (08:24→17:04)
[2019-08-03] MEDS: gabapentin 300 mg Capsule PO ×3 (08:24→21:04)
[2019-08-03] MEDS: FUROsemide 40 mg Tablet PO (08:24)
[2019-08-03] MEDS: losartan 50 mg Tablet PO (08:24)
[2019-08-03 08:34] LABS: Glucose Point of Care 218 mg/dL (70-110)
--- NOTE | 2019-08-03 12:04 | PM.PN ---
Subjective Subjective: Interval history: No acute events overnight. Has intermittent boutus of coughing that drop his 02 sat to late 70s in spite of being on hi flow. States breathing is uncanged today, however better since admission. Continues to be on hi flow 80% at 40lpm Medications: Reviewed: Yes Vitals/I&O/Wt Last Vital Signs Temp 98.6 F 08/03/19 08:00 Pulse 89 08/03/19 11:00 Resp 18 08/03/19 11:00 BP 111/86 08/03/19 11:00 Pulse Ox 90 08/03/19 11:00 08/02/19 08/03/19 08/03/19 22:59 06:59 14:59 Intake Total 980 / 1520 450 / 450 Output Total 1100 / 2175 300 / 2475 Balance -120 / -655 -300 / -955 450 / 450 Physical Exam Narrative: EXAM NARRATIVE: GEN: Awake, alert and oriented, no acute distress CVS: S1S2 N RS: B/L fine crackles to auscultation Abd: Soft, nt/nd , bs+ CARPENTER SUPERVISOR: no focal neuro deficits EXT: no pedal edema Urinary Catheter Management^: Casey: Cath Placed During This Visit: yes Reason for Continuing Indwelling Catheter: Accurate Measurement of Urinary Output in Critically Ill Patients Urinary Catheter Date of Insertion: 07/24/19 Urinary Catheter Time of Insertion: 18:22 Data : 08/03/19 04:34 08/03/19 04:34 A&P Assessment and plan (1) Sepsis with acute hypoxic respiratory failure: Status: Acute Qualifiers: Sepsis type: sepsis due to unspecified organism Severe sepsis shock status: with septic shock Qualified Code(s): A41.9 - Sepsis, unspecified organism; R65.21 - Severe sepsis with septic shock; J96.01 - Acute respiratory failure with hypoxia (2) Septic shock: Status: Acute (3) Hypertension: Status: Acute Qualifiers: Hypertension type: essential hypertension Qualified Code(s): I10 - Essential (primary) hypertension (4) DM type 2 (diabetes mellitus, type 2): Status: Acute Qualifiers: Diabetes mellitus termination clerk insulin use: without chcf use Diabetes mellitus complication status: without complication Qualified Code(s): E11.9 - Type 2 diabetes mellitus without complications (5) Pulmonary fibrosis: Status: Acute (6) COPD (chronic obstructive pulmonary disease): Status: Acute Qualifiers: COPD type: unspecified COPD Qualified Code(s): J44.9 - Chronic obstructive pulmonary disease, unspecified (7) Right ventricular dysfunction: Status: Acute (8) MILENA (acute kidney injury): Status: Acute (9) NSTEMI (non-ST elevated myocardial infarction): Status: Acute Additional A&P Information #1 acute hypoxic respiratory failure secondary to idiopathic pulmonary fibrosis, exacerbation of idiopathic pulmonary fibrosis -Patient's echocardiogram shows severe right heart strain, severely decreased right ventricular systolic function,, right atrial pressure 20 mmHg, last troponin is 140 -CT scan shows severe worsening of interstitial pulmonary fibrosis, severe honeycombing, new bilateral groundglass opacities that all indicate severe underlying interstitial pulmonary fibrosis, with acute exacerbation. -CT scan in 2017 showed There is extensive peripheral pleural thickening with retraction and volume loss. Subpleural lucencies with honeycombing and traction bronchiectasis in the upper and lower lobes. Stable subcentimeter nodules at the left apex and left lung base since 02/01/2014. No increase in size. Largest nodule the left lung base measures 8 mm. No pericardial or pleural effusions -Currently on high dose steroids, appreciate pulmonary recommendations, patient's condition is terminal, has a high mortality rate in the next few weeks to month, and likely patient would not have any meaningful recovery if he were to be intubated, likely would not ever come off ventilator. -After speaking with [facility], patient's is not a candidate for double lung transplant, nor is he a candidate for tyrosine kinase inhibitors, or experimental treatments, and they have rejected the transfer as there is nothing else they can do for him at this time -Patient continues to be on hi Flow NC -Patient reiterates multiple times that he does eventually want to go home in spite of understanding extremely poor prognosis. He has declined hospice or comfort measures. - Unable to replicate HFNC at home, therefore looking for transfer to LTAC facility as high amounts of oxygen can only be given in hospitalized care -Broad-spectrum antibiotics including zosyn, zyvox/vanc/azithro between 07/23-08/02/19 to cover for possible HCAP incl MRSA PNA. -Continue prednisone 40 mg daily - add inhaled budesonide BID -cough bouts appear to trigger episodic desaturation, start syp codeine prn and scheduled tessalon pearls # Severe right ventricular dysfunction with pulmonary hypertension: Secondary to idiopathic pulmonary fibrosis, Daily dose Lasix 2. Septic shock, now resolved D/c antibiotics, adequate course since 07/23-08/01 persisting leukocytosis more likely to be marginationf rom steroids. No fever, no overt clinical change, s/p adequate course of abx, procalcitonin negative several times. #3 acute hypoxic respiratory failure Echo evidence of right heart strain on echocardiogram (though this may be related to underlying interstitial lung disease) Lower extremity Doppler performed in the ER is without any evidence of DVT. Albuterol inhalation every 4 hours standing. Continue Spiriva inhalation. Add budesonide COVID testing negative x2 add cough suppressants #3 diabetes mellitus, Continue high-dose sliding scale + levemir 15 U bid #4 hypotension, resolved, off Levophed #5 NSTEMI: Likely related to right heart strain, acute hypoxic respiratory failure, last troponin I 140 trending down, no chest pain, EKG shows T wave inversions in anterior chest leads, continue aspirin and statin #6 history of COPD and interstitial lung disease #7 acute kidney injury, likely as a result of sepsis #8 Fluid overload: diuresed, negative [id number] since admission, daily dose Lasix Attestations Medical Necessity Statement*: awaiting transfer to LTAC, pending insurance authorization Coding Level of Care Code Acute Metal Work Duct Installer for [facility] Fwd Diagnoses Sepsis with acute hypoxic respiratory failure A41.9; R65.21; J96.01 Sepsis type: sepsis due to unspecified organism Severe sepsis shock status: with septic shock Septic shock A41.9; R65.21 Hypertension I10 Hypertension type: essential hypertension DM type 2 (diabetes mellitus, type 2) E11.9 Diabetes mellitus chcf insulin use: without termination clerk use Diabetes mellitus complication status: without complication Pulmonary fibrosis J84.10 COPD (chronic obstructive pulmonary disease) J44.9 COPD type: unspecified COPD Right ventricular dysfunction I51.9 MILENA (acute kidney injury) N17.9 NSTEMI (non-ST elevated myocardial infarction) I21.4
[2019-08-03 12:20] LABS: Glucose Point of Care 193 mg/dL (70-110)
[2019-08-03] MEDS: benzonatate 100 mg Capsule PO ×2 (14:13→21:04)
--- NOTE | 2019-08-03 15:26 | PC.OT ---
OT TREATMENT ATTEMPTED. PATIENT IS SLEEPING SOUNDLY. WILL ATTEMPT AGAIN TOMORROW.
[2019-08-03 16:36] LABS: Glucose Point of Care 300 mg/dL (70-110)
[2019-08-03 20:06] LABS: Glucose Point of Care 293 mg/dL (70-110)
[2019-08-04] VITALS (39 sets, daily range): BP systolic 101–145; BP diastolic 62–98; PULSE 56–110; RESP 11–32; TEMP 36.6–37.1; O2SAT 77–91
[2019-08-04] MEDS: morphine 4 mg/mL SDV 1 mL 2 MG IVP ×7 (02:28→22:23)
[2019-08-04] MEDS: ipratropium-albuterol 3 mL Neb INHALATION ×4 (02:57→20:25)
[2019-08-04 05:29] LABS: Basophils # 0.1 10^3/uL (0.0-0.1); Basophils % 0.3 %; Eosinophils # 0.4 10^3/uL (0.0-0.8); Eosinophils % 1.9 %; Hematocrit 49.5 % (42.0-52.0); Hemoglobin 15.6 g/dL (11.7-16.6); Lymphocytes # 3.2 10^3/uL (0.8-4.8); Lymphocytes % 14.8 %; Mean Corpuscular HGB Conc 31.5 g/dL (30.0-36.0); Mean Corpuscular Hemoglobin 29.7 pg (28.0-34.0); Mean Corpuscular Volume 94.3 fL (80-94); Mean Platelet Volume 12.1 fL (7.4-10.4); Monocytes # 1.8 10^3/uL (0.2-0.9); Monocytes % 8.1 %; Neutrophils % 73.5 %; Nucleated Red Blood Cells % 0 %; Platelet Count 267 10^3/cmm (130-400); Red Blood Count 5.25 10^6/uL (4.1-5.3); Red Cell Distribution Width 13.8 % (12.1-15.1); White Blood Count 21.8 10^3/uL (4.0-10.0)
[2019-08-04 05:48] LABS: Alanine Aminotransferase 10 U/L (0-41); Albumin Level 3.1 g/dL (3.5-5.2); Alkaline Phosphatase 92 IU/L (40-130); Anion Gap 11.3 (5-19); Aspartate Amino Transferase 10 U/L (0-40); Blood Urea Nitrogen 27 mg/dL (8-23); Calcium 8.8 mg/dL (8.5-10.5); Carbon Dioxide 34 mmol/L (22-29); Chloride 95 mmol/L (98-107); Globulin 3.5 g/dL (1.3-4.6); Glomerular Filtration Rate 84.2 mL/min (90-130); Glucose 262 mg/dL (65-115); Osmolality Calculated 288 mOsm/kg (285-295); Potassium 4.3 mmol/L (3.5-5.1); Sodium 136 mmol/L (136-145); Total Bilirubin 0.5 mg/dL (0.15-1.2); Total Protein 6.6 g/dL (6.6-8.7)
[2019-08-04] MEDS: pantoprazole DR 40 mg Tablet PO ×2 (06:31→18:22)
[2019-08-04 07:39] LABS: Glucose Point of Care 230 mg/dL (70-110)
[2019-08-04] MEDS: dilTIAZem ER (24HR) 240 mg Capsule PO (08:08)
[2019-08-04] MEDS: FUROsemide 40 mg Tablet PO (08:08)
[2019-08-04] MEDS: metoprolol tartrate 25 mg Tablet PO ×2 (08:08→18:21)
[2019-08-04] MEDS: predniSONE 20 mg Tablet 40 MG PO (08:08)
[2019-08-04] MEDS: enoxaparin 40 mg/0.4 mL Syringe SUBCUT (08:08)
[2019-08-04] MEDS: gabapentin 300 mg Capsule PO ×3 (08:08→21:33)
[2019-08-04] MEDS: losartan 50 mg Tablet PO (08:08)
[2019-08-04] MEDS: atorvastatin 40 mg Tablet PO (08:08)
[2019-08-04] MEDS: potassium chloride ER 10 mEq Tablet 40 MEQ PO (08:09)
[2019-08-04] MEDS: benzonatate 100 mg Capsule PO ×3 (08:09→21:33)
[2019-08-04] MEDS: budesonide 0.5 mg/2 mL Neb INHALATION ×2 (08:23→20:25)
--- NOTE | 2019-08-04 09:31 | PC.SOCIAL ---
IMM Update Pg 2 of IMM updated with patient. Initialed, dated, and timed and placed in chart, copy provided to patient.
[2019-08-04] MEDS: bisacodyl 5 mg Tablet PO (10:29)
[2019-08-04] MEDS: polyethylene glycol 3350 Pkt 17 gm PO (10:29)
--- NOTE | 2019-08-04 11:14 | PM.PN ---
Subjective Subjective: Interval history: desturates to 77-78% with minimal activity. Added cough suppressants yesetrday without significant change. This am, 02 sat 88% on 75% fi02 @ 30lpm. Medications: Reviewed: Yes Vitals/I&O/Wt Last Vital Signs Temp 98.7 F 08/04/19 08:00 Pulse 94 08/04/19 11:00 Resp 31 H 08/04/19 11:00 BP 118/77 08/04/19 11:00 Pulse Ox 88 L 08/04/19 11:00 08/03/19 08/04/19 08/04/19 22:59 06:59 14:59 Intake Total 700 / 1650 200 / 1850 450 / 450 Output Total 700 / 1300 400 / 1700 Balance 0 / 350 -200 / 150 450 / 450 Physical Exam Narrative: EXAM NARRATIVE: GEN: Awake, alert and oriented, no acute distress CVS: S1S2 N RS: B/L fine crackles to auscultation Abd: Soft, nt/nd , bs+ MANAGER SITE: no focal neuro deficits EXT: no pedal edema Urinary Catheter Management^: Casey: Cath Placed During This Visit: yes Reason for Continuing Indwelling Catheter: Accurate Measurement of Urinary Output in Critically Ill Patients Urinary Catheter Date of Insertion: 07/24/19 Urinary Catheter Time of Insertion: 18:22 Data : 08/04/19 04:47 08/04/19 04:47 A&P Assessment and plan (1) Sepsis with acute hypoxic respiratory failure: Status: Acute Qualifiers: Sepsis type: sepsis due to unspecified organism Severe sepsis shock status: with septic shock Qualified Code(s): A41.9 - Sepsis, unspecified organism; R65.21 - Severe sepsis with septic shock; J96.01 - Acute respiratory failure with hypoxia (2) Septic shock: Status: Acute (3) Hypertension: Status: Acute Qualifiers: Hypertension type: essential hypertension Qualified Code(s): I10 - Essential (primary) hypertension (4) DM type 2 (diabetes mellitus, type 2): Status: Acute Qualifiers: Diabetes mellitus custodial insulin use: without termination clerk use Diabetes mellitus complication status: without complication Qualified Code(s): E11.9 - Type 2 diabetes mellitus without complications (5) Pulmonary fibrosis: Status: Acute (6) COPD (chronic obstructive pulmonary disease): Status: Acute Qualifiers: COPD type: unspecified COPD Qualified Code(s): J44.9 - Chronic obstructive pulmonary disease, unspecified (7) Right ventricular dysfunction: Status: Acute (8) MILENA (acute kidney injury): Status: Acute (9) NSTEMI (non-ST elevated myocardial infarction): Status: Acute Additional A&P Information #1 acute hypoxic respiratory failure secondary to idiopathic pulmonary fibrosis, exacerbation of idiopathic pulmonary fibrosis -Patient's echocardiogram shows severe right heart strain, severely decreased right ventricular systolic function,, right atrial pressure 20 mmHg, last troponin is 140 -CT scan shows severe worsening of interstitial pulmonary fibrosis, severe honeycombing, new bilateral groundglass opacities that all indicate severe underlying interstitial pulmonary fibrosis, with acute exacerbation. Overall progressive since CT in 2017. -Currently on Prednisone 40mg po qd , appreciate pulmonary recommendations, patient's condition is terminal, has a high mortality rate in the next few weeks to month, and likely patient would not have any meaningful recovery if he were to be intubated, likely would not ever come off ventilator. -per discussin between Dr. rico and [facility], patient's is not a candidate for double lung transplant, nor is he a candidate for tyrosine kinase inhibitors, or experimental treatments, and they have rejected the transfer as there is nothing else they can do for him at this time -Patient continues to be on hi Flow NC -Patient reiterates multiple times that he does eventually want to go home in spite of understanding extremely poor prognosis. He has declined hospice or comfort measures. - Unable to replicate HFNC at home, therefore looking for transfer to LTAC facility as high amounts of oxygen can only be given in hospitalized care -Broad-spectrum antibiotics including zosyn, zyvox/vanc/azithro between 07/23-08/02/19 to cover for possible HCAP incl MRSA PNA. Completed adequate course - Continue budesonide and suoneb inhalation -cough bouts appear to trigger episodic desaturation, start syp codeine prn and scheduled tessalon pearls # Severe right ventricular dysfunction with pulmonary hypertension: Secondary to idiopathic pulmonary fibrosis, Daily dose Lasix. Urine output at 1.7L. Stable renal function 2. Septic shock, now resolved D/c antibiotics, adequate course since 07/23-08/01 persisting leukocytosis more likely to be marginationf rom steroids. No fever, no overt clinical change, s/p adequate course of abx, procalcitonin negative several times. #3 acute hypoxic respiratory failure Echo evidence of right heart strain on echocardiogram (though this may be related to underlying interstitial lung disease) Lower extremity Doppler performed in the ER is without any evidence of DVT. COVID testing negative x2 #3 diabetes mellitus, Continue high-dose sliding scale + levemir 15 U bid #4 hypotension, resolved, off Levophed #5 NSTEMI: Likely related to right heart strain, acute hypoxic respiratory failure, last troponin I 140 trending down, no chest pain, EKG shows T wave inversions in anterior chest leads, continue aspirin and statin #6 history of COPD and interstitial lung disease #7 acute kidney injury, likely as a result of sepsis Dvt ppx: lovenox Full code Attestations Medical Necessity Statement*: Awaiting insurance authorization to transition to LTAC where high 02 requirements can be met, and multiple medical comorbidities co managed. 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9 MILENA (acute kidney injury) N17.9 NSTEMI (non-ST elevated myocardial infarction) I21.4
[2019-08-04 11:34] LABS: Glucose Point of Care 222 mg/dL (70-110)
[2019-08-04 13:16] LABS: Anti-Double Strand DNA AB <1 IU/mL
--- NOTE | 2019-08-04 14:56 | PC.OT ---
Pt offered grooming and bathing this date. Stated he has already completed today and that he did not need anything from us today. Will offer again tomorrow.-Suri Dawson, AIDAN/Jamari
[2019-08-04] MEDS: FUROsemide 10 mg/mL SDV 4mL 40 MG IVP (16:25)
[2019-08-04 16:41] LABS: Glucose Point of Care 471 mg/dL (70-110)
--- NOTE | 2019-08-04 20:30 | PC.NURSE ---
Pt son called asking What was going on . Son explained that his father (the pt) wanted to go home. Nurse Spoke with pt and cleared up confusion. Pt and pt son both state, very clearly, that pt is NOT TO BE INTUBATED. Pt still wants CPR and medications, but no tube in his throat . Pt son informed that unless pt is DNA, he is not allowed visitors at this time.
[2019-08-04 21:43] LABS: Glucose Point of Care 263 mg/dL (70-110)
[2019-08-05] VITALS (32 sets, daily range): BP systolic 90–154; BP diastolic 67–100; PULSE 66–120; RESP 0–35; O2SAT 81–90
[2019-08-05] MEDS: ipratropium-albuterol 3 mL Neb INHALATION ×4 (03:44→20:21)
[2019-08-05] MEDS: morphine 4 mg/mL SDV 1 mL 2 MG IVP ×6 (03:46→23:18)
[2019-08-05] MEDS: pantoprazole DR 40 mg Tablet PO ×2 (06:09→17:04)
[2019-08-05] MEDS: FUROsemide 40 mg Tablet PO (08:01)
[2019-08-05] MEDS: enoxaparin 40 mg/0.4 mL Syringe SUBCUT (08:01)
[2019-08-05] MEDS: budesonide 0.5 mg/2 mL Neb INHALATION ×2 (08:28→20:21)
[2019-08-05 08:36] LABS: Glucose Point of Care 375 mg/dL (70-110)
[2019-08-05] MEDS: polyethylene glycol 3350 Pkt 17 gm PO (09:14)
[2019-08-05] MEDS: benzonatate 100 mg Capsule PO ×3 (09:14→21:14)
[2019-08-05] MEDS: potassium chloride ER 10 mEq Tablet 40 MEQ PO (09:14)
[2019-08-05] MEDS: atorvastatin 40 mg Tablet PO (09:15)
[2019-08-05] MEDS: gabapentin 300 mg Capsule PO ×3 (09:15→21:14)
[2019-08-05] MEDS: metoprolol tartrate 25 mg Tablet PO ×2 (09:15→17:03)
[2019-08-05] MEDS: losartan 50 mg Tablet PO (09:15)
[2019-08-05] MEDS: dilTIAZem ER (24HR) 240 mg Capsule PO (09:15)
--- NOTE | 2019-08-05 09:53 | PC.NURSE ---
am meds given became very short of breath with swallowing potassium pill. rest of am meds on hold at sat dropped to 80,s and up in bed
--- NOTE | 2019-08-05 13:26 | PC.OT ---
Attempted treatment this P.M. Pt in bed upon arrival. Denied getting in chair, sponge bath, grooming, and exercises stating that he was just too tired and worn out today. Willing to attempt tomorrow. Will attempt again tomorrow.-AIDAN Butler/Jamari
--- NOTE | 2019-08-05 14:11 | PM.PN ---
Subjective Subjective: Interval history: Patient's 02 requirements have been increasing through the course of yesterday evening to the point where he is now on 90-100% fi02 requirements with 02 sat between 82-86%. Medications: Reviewed: Yes Vitals/I&O/Wt Last Vital Signs Temp 98.4 F 08/04/19 16:00 Pulse 95 08/05/19 14:00 Resp 26 H 08/05/19 14:00 BP 109/78 08/05/19 14:00 Pulse Ox 86 L 08/05/19 14:00 08/04/19 08/05/19 08/05/19 22:59 06:59 14:59 Intake Total 350 / 1150 180 / 1330 250 / 250 Output Total 1400 / 2000 400 / 2400 800 / 800 Balance -1050 / -850 -220 / -1070 -550 / -550 Physical Exam Narrative: EXAM NARRATIVE: GEN: Awake, alert and oriented, no acute distress CVS: S1S2 N RS: B/L fine crackles to auscultation Abd: Soft, nt/nd , bs+ HIGH WIRE ARTIST: no focal neuro deficits EXT: no pedal edema Urinary Catheter Management^: Casey: Cath Placed During This Visit: yes Reason for Continuing Indwelling Catheter: Accurate Measurement of Urinary Output in Critically Ill Patients Urinary Catheter Date of Insertion: 07/24/19 Urinary Catheter Time of Insertion: 18:22 Data : 08/04/19 04:47 08/04/19 04:47 A&P Assessment and plan (1) Sepsis with acute hypoxic respiratory failure: Status: Acute Qualifiers: Sepsis type: sepsis due to unspecified organism Severe sepsis shock status: with septic shock Qualified Code(s): A41.9 - Sepsis, unspecified organism; R65.21 - Severe sepsis with septic shock; J96.01 - Acute respiratory failure with hypoxia (2) Septic shock: Status: Acute (3) Hypertension: Status: Acute Qualifiers: Hypertension type: essential hypertension Qualified Code(s): I10 - Essential (primary) hypertension (4) DM type 2 (diabetes mellitus, type 2): Status: Acute Qualifiers: Diabetes mellitus correction insulin use: without correction use Diabetes mellitus complication status: without complication Qualified Code(s): E11.9 - Type 2 diabetes mellitus without complications (5) Pulmonary fibrosis: Status: Acute (6) COPD (chronic obstructive pulmonary disease): Status: Acute Qualifiers: COPD type: unspecified COPD Qualified Code(s): J44.9 - Chronic obstructive pulmonary disease, unspecified (7) Right ventricular dysfunction: Status: Acute (8) MILENA (acute kidney injury): Status: Acute (9) NSTEMI (non-ST elevated myocardial infarction): Status: Acute Additional A&P Information #1 acute hypoxic respiratory failure secondary to idiopathic pulmonary fibrosis, exacerbation of idiopathic pulmonary fibrosis -Patient's echocardiogram shows severe right heart strain, severely decreased right ventricular systolic function,, right atrial pressure 20 mmHg, last troponin is 140 -CT scan shows severe worsening of interstitial pulmonary fibrosis, severe honeycombing, new bilateral groundglass opacities that all indicate severe underlying interstitial pulmonary fibrosis, with acute exacerbation. Overall progressive since CT in 2017. -Currently on Prednisone 40mg po qd ,worsening requirements since yesterday, increase steroids to 80mg iv q6h, appreciate pulmonary recommendations, patient's condition is terminal, has a high mortality rate in the next few weeks to month, and likely patient would not have any meaningful recovery if he were to be intubated, likely would not ever come off ventilator. -per discussin between Dr. rico and [facility], patient's is not a candidate for double lung transplant, nor is he a candidate for tyrosine kinase inhibitors, or experimental treatments, and they have rejected the transfer as there is nothing else they can do for him at this time -Patient continues to be on hi Flow NC -Patient reiterates multiple times that he does eventually want to go home in spite of understanding extremely poor prognosis. He has declined hospice or comfort measures. - Unable to replicate HFNC at home, therefore looking for transfer to LTAC facility as high amounts of oxygen can only be given in hospitalized care -Broad-spectrum antibiotics including zosyn, zyvox/vanc/azithro between 07/23-08/02/19 to cover for possible HCAP incl MRSA PNA. Completed adequate course - Continue budesonide and suoneb inhalation - repeat chest x ray # Severe right ventricular dysfunction with pulmonary hypertension: Secondary to idiopathic pulmonary fibrosis, Ddiuresing well but increasing 02 requirements---> increase lasix to 40mg iv qd 2. Septic shock, now resolved D/c antibiotics, adequate course since 07/23-08/01 persisting leukocytosis more likely to be marginationf rom steroids. No fever, s/p adequate course of abx, procalcitonin negative several times. #3 acute hypoxic respiratory failure Echo evidence of right heart strain on echocardiogram (though this may be related to underlying interstitial lung disease) Lower extremity Doppler performed in the ER is without any evidence of DVT. COVID testing negative x2 #3 diabetes mellitus, Continue high-dose sliding scale + levemir 15 U bid #4 hypotension, resolved, off Levophed #5 NSTEMI: Likely related to right heart strain, acute hypoxic respiratory failure, last troponin I 140 trending down, no chest pain, EKG shows T wave inversions in anterior chest leads, continue aspirin and statin #6 history of COPD and interstitial lung disease #7 acute kidney injury, likely as a result of sepsis Dvt ppx: lovenox Full code Attestations Medical Necessity Statement*: needs optimization of respiratory status, extremely high 02 requirements, awaiting insurance approval for transfer to LTAC Coding Level of Care Code Acute Retail Merchandiser Technician for [facility] Fwd Diagnoses Sepsis with acute hypoxic respiratory failure A41.9; R65.21; J96.01 Sepsis type: sepsis due to unspecified organism Severe sepsis shock status: with septic shock Septic shock A41.9; R65.21 Hypertension I10 Hypertension type: essential hypertension DM type 2 (diabetes mellitus, type 2) E11.9 Diabetes mellitus continuous churn buttermaker insulin use: without continuous churn buttermaker use Diabetes mellitus complication status: without complication Pulmonary fibrosis J84.10 COPD (chronic obstructive pulmonary disease) J44.9 COPD type: unspecified COPD Right ventricular dysfunction I51.9 MILENA (acute kidney injury) N17.9 NSTEMI (non-ST elevated myocardial infarction) I21.4
--- NOTE | 2019-08-05 14:12 | XR_ITS ---
WS: [id number] XR chest 1V portable [id number] REASON FOR EXAM: worsening dyspnea FINDINGS: This study showed hypoaerated lungs. The heart is enlarged with arteriosclerotic changes se en. Reticular nodular pattern throughout both lung oneil similar to previous exam of 08/01/2019. Exli ne there is no definite pneumonia, pleural effusion, or pulmonary edema. XR/XR chest 1V portable [id number] IMPRESSION: Idiopathic pulmonary fibrosis. Unchanged since previous exam of 08/01/2019.
[2019-08-05] MEDS: ALPRAZolam 0.25 mg Tablet PO ×2 (14:20→21:14)
[2019-08-05] MEDS: FUROsemide 10 mg/mL SDV 4mL 40 MG IVP (14:20)
--- NOTE | 2019-08-05 16:04 | PC.NURSE ---
dr talked at length with son about status then talked with pt himself is now a dni
[2019-08-05 16:44] LABS: Glucose Point of Care 290 mg/dL (70-110)
--- NOTE | 2019-08-05 20:27 | PC.NURSE ---
Change of shift report taken from JUANITO LU. Pt was noted to be asleep at shift change. Nurse will continue to monitor O2 sats throughout the night.
[2019-08-05 21:12] LABS: Glucose Point of Care 363 mg/dL (70-110)
[2019-08-05 21:12] LABS: Glucose Point of Care 358 mg/dL (70-110)
[2019-08-06] VITALS (34 sets, daily range): BP systolic 110–147; BP diastolic 65–92; PULSE 64–101; RESP 12–30; TEMP 36.7–36.9; O2SAT 80–90
[2019-08-06] MEDS: ipratropium-albuterol 3 mL Neb INHALATION ×7 (00:14→23:26)
[2019-08-06] MEDS: morphine 4 mg/mL SDV 1 mL 2 MG IVP ×2 (01:41→03:28)
[2019-08-06 05:11] LABS: Basophils # 0.1 10^3/uL (0.0-0.1); Basophils % 0.2 %; Hematocrit 52.3 % (42.0-52.0); Hemoglobin 16.5 g/dL (11.7-16.6); Lymphocytes # 1.1 10^3/uL (0.8-4.8); Lymphocytes % 3.8 %; Mean Corpuscular HGB Conc 31.5 g/dL (30.0-36.0); Mean Corpuscular Volume 95.1 fL (80-94); Mean Platelet Volume 12.2 fL (7.4-10.4); Monocytes # 0.9 10^3/uL (0.2-0.9); Neutrophils # 26.4 10^3/uL (1.8-7.7); Neutrophils % 91.7 %; Nucleated Red Blood Cells % 0 %; Platelet Count 293 10^3/cmm (130-400); Red Cell Distribution Width 14.1 % (12.1-15.1); White Blood Count 28.8 10^3/uL (4.0-10.0)
[2019-08-06] MEDS: morphine 4 mg/mL SDV 1 mL IVP ×2 (05:26→22:09)
[2019-08-06 05:48] LABS: Alanine Aminotransferase 10 U/L (0-41); Albumin Level 3.4 g/dL (3.5-5.2); Alkaline Phosphatase 112 IU/L (40-130); Anion Gap 23.2 (5-19); Blood Urea Nitrogen 47 mg/dL (8-23); Calcium 9.6 mg/dL (8.5-10.5); Carbon Dioxide 24 mmol/L (22-29); Chloride 96 mmol/L (98-107); Globulin 2.9 g/dL (1.3-4.6); Glomerular Filtration Rate 66.8 mL/min (90-130); Glucose 355 mg/dL (65-115); Osmolality Calculated 298 mOsm/kg (285-295); Potassium 5.2 mmol/L (3.5-5.1); Sodium 138 mmol/L (136-145); Total Bilirubin 0.5 mg/dL (0.15-1.2); Total Protein 6.3 g/dL (6.6-8.7)
[2019-08-06 06:06] LABS: Aspartate Amino Transferase 14 U/L (0-40)
[2019-08-06] MEDS: pantoprazole DR 40 mg Tablet PO ×2 (06:15→17:10)
[2019-08-06] MEDS: ALPRAZolam 0.25 mg Tablet PO ×3 (06:15→22:09)
--- NOTE | 2019-08-06 07:36 | PC.NURSE ---
resting comfortable with eyes closed at this time . left resting as had respritory issue prior
[2019-08-06] MEDS: enoxaparin 40 mg/0.4 mL Syringe SUBCUT (07:57)
[2019-08-06] MEDS: potassium chloride ER 10 mEq Tablet 40 MEQ PO (08:07)
[2019-08-06] MEDS: atorvastatin 40 mg Tablet PO (08:08)
[2019-08-06] MEDS: gabapentin 300 mg Capsule PO ×3 (08:08→20:28)
[2019-08-06] MEDS: dilTIAZem ER (24HR) 240 mg Capsule PO (08:08)
[2019-08-06] MEDS: benzonatate 100 mg Capsule PO ×3 (08:08→20:28)
[2019-08-06] MEDS: losartan 50 mg Tablet PO (08:08)
[2019-08-06] MEDS: metoprolol tartrate 25 mg Tablet PO ×2 (08:08→17:10)
[2019-08-06 08:16] LABS: Glucose Point of Care 334 mg/dL (70-110)
[2019-08-06] MEDS: budesonide 0.5 mg/2 mL Neb INHALATION ×2 (08:16→20:12)
--- NOTE | 2019-08-06 08:27 | DCPLANNER ---
Pg 2 of IM updated and reviewed with pt. No questions, copy provided.
--- NOTE | 2019-08-06 09:44 | PC.NURSE ---
resting eyes closed at this time Dr Toribio here exam done
--- NOTE | 2019-08-06 12:22 | PC.NURSE ---
ot here coordinated care and ms given prior to bath ect done
--- NOTE | 2019-08-06 12:33 | P.PN_ITS ---
Subjective Subjective: Interval history: Patient continues to require very high oxygen. He is on high flow nasal cannula 100% at 40 to 60 L/min with O2 sat ranging between 82 to 84%. He has been requiring more morphine to counter some of the head that he has been experiencing. He has also been started on Xanax 3 times a day to alleviate some of his anxiety which she states is helping him. He continues to be tachypneic and mouth breathing. Steroids have been increased yesterday, as has the Lasix, however it does not seem to have made much of a difference to his overall clinical state. Intermittently noted to have irregular heart rate on telemetry. Medications: Reviewed: Yes Vitals/I&O/Wt Last Vital Signs Temp 98.4 F 08/04/19 16:00 Pulse 98 08/06/19 12:00 Resp 30 H 08/06/19 12:00 BP 135/88 08/06/19 11:00 Pulse Ox 80 L 08/06/19 12:00 08/05/19 08/06/19 08/06/19 22:59 06:59 14:59 Intake Total 550 / 800 500 / 1300 670 / 670 Output Total 1000 / 1800 950 / 2750 450 / 450 Balance -450 / -1000 -450 / -1450 220 / 220 Physical Exam 2 Narrative: EXAM NARRATIVE: GEN: Awake, alert and oriented, noted to be grossly tachypneic and mouth breathing, however in his optimism he does state that he is feeling a lot better. HEENT high flow nasal cannula in place. CVS: S1S2 N RS: Bilateral fine rales on auscultation. Abd: Soft, nt/nd , bs+ METAL TECHNICIAN: no focal neuro deficits Urinary Catheter Management^: Casey: Cath Placed During This Visit: yes Reason for Continuing Indwelling Catheter: Accurate Measurement of Urinary Output in Critically Ill Patients Urinary Catheter Date of Insertion: 07/24/19 Urinary Catheter Time of Insertion: 18:22 Data : 08/06/19 04:24 08/06/19 04:24 A&P Assessment and plan (1) Sepsis with acute hypoxic respiratory failure: Status: Acute Qualifiers: Sepsis type: sepsis due to unspecified organism Severe sepsis shock status: with septic shock Qualified Code(s): A41.9 - Sepsis, unspecified organism; R65.21 - Severe sepsis with septic shock; J96.01 - Acute respiratory failure with hypoxia (2) Septic shock: Status: Acute (3) Hypertension: Status: Acute Qualifiers: Hypertension type: essential hypertension Qualified Code(s): I10 - Essential (primary) hypertension (4) DM type 2 (diabetes mellitus, type 2): Status: Acute Qualifiers: Diabetes mellitus detention insulin use: without detention use Diabetes mellitus complication status: without complication Qualified Code(s): E11.9 - Type 2 diabetes mellitus without complications (5) Pulmonary fibrosis: Status: Acute (6) COPD (chronic obstructive pulmonary disease): Status: Acute Qualifiers: COPD type: unspecified COPD Qualified Code(s): J44.9 - Chronic obstructive pulmonary disease, unspecified (7) Right ventricular dysfunction: Status: Acute (8) MILENA (acute kidney injury): Status: Acute (9) NSTEMI (non-ST elevated myocardial infarction): Status: Acute Additional A&P Information #1 acute hypoxic respiratory failure secondary to idiopathic pulmonary fibrosis, exacerbation of idiopathic pulmonary fibrosis -CT scan shows severe worsening of interstitial pulmonary fibrosis, severe honeycombing, new bilateral groundglass opacities that all indicate severe underlying interstitial pulmonary fibrosis, with acute exacerbation. Overall progressive since CT in 2017. - increase steroids to 80mg iv q8h yesterday however without any significant changes in his condition. In fact he appears to be having worsening respiratory status. appreciate pulmonary recommendations, patient's condition is terminal, has a high mortality rate in the next few weeks to month, and likely patient would not have any meaningful recovery if he were to be intubated, likely would not ever come off ventilator. -per discussin between Dr. rico and [facility], patient's is not a candidate for double lung transplant, nor is he a candidate for tyrosine kinase inhibitors, or experimental treatments, and they have rejected the transfer as there is nothing else they can do for him at this time -Patient continues to be on hi Flow NC -Patient reiterates multiple times that he does eventually want to go home in spite of understanding extremely poor prognosis. He has declined hospice or comfort measures in the past, however will have a discussion with him again regarding these. He did come to terms with this condition and made himself DNR/DNI yesterday. Given his worsening clinical status we will additionally discuss comfort measures with him should the need arise. I had an extensive discussion with his family, son MARGO yesterday as well regarding this. His family is in agreement for DNR/DNI and comfort measures, however we have held off until now in accordance with patient's wishes as he wants to continue with the current line of treatment. - Unable to replicate HFNC at home, therefore looking for transfer to LTAC facility as high amounts of oxygen can only be given in hospitalized care -Broad-spectrum antibiotics including zosyn, zyvox/vanc/azithro between 07/23- 08/02/19 to cover for possible HCAP incl MRSA PNA. Completed adequate course. S erial procalcitonin have been negative. Given worsening of respiratory status, chest x-ray was repeated yesterday which did not show any evidence of new developing infiltrates. It was consistent with known worse interstitial lung disease. Will repeat procalcitonin. - Continue budesonide and duoneb inhalation -Unlikely to be PE as a contributor here as patient has been on adequate prophylaxis with Lovenox. # Severe right ventricular dysfunction with pulmonary hypertension: -Patient's echocardiogram shows severe right heart strain, severely decreased right ventricular systolic function,, right atrial pressure 20 mmHg, last troponin is 140 Secondary to idiopathic pulmonary fibrosis, Ddiuresing well but increasing 02 requirements. Continue Lasix, titrating based on urine output and renal function. 2. Septic shock, now resolved D/c antibiotics, adequate course since 07/23-08/01 persisting leukocytosis more likely to be marginationf rom steroids. No fever, s/p adequate course of abx, procalcitonin negative several times. #3 acute hypoxic respiratory failure Echo evidence of right heart strain on echocardiogram (though this may be related to underlying interstitial lung disease) Lower extremity Doppler performed in the ER is without any evidence of DVT. COVID testing negative x2 #3 diabetes mellitus, Continue high-dose sliding scale + levemir 15 U bid #4 hypotension, resolved, off Levophed #5 NSTEMI: Likely related to right heart strain, acute hypoxic respiratory failure, last troponin I 140 trending down, no chest pain, EKG shows T wave inversions in anterior chest leads, continue aspirin and statin #6 history of COPD and interstitial lung disease #7 acute kidney injury, likely as a result of sepsis Dvt ppx: lovenox DNR/DNI Attestations Medical Necessity Statement*: Patient with severe ILD with exacerbation with extremely high oxygen requirements at this present time. Coding Level of Care Code Acute Director Of Early Childhood Education for g Fwd Diagnoses Sepsis with acute hypoxic respiratory failure A41.9; R65.21; J96.01 Sepsis type: sepsis due to unspecified organism Severe sepsis shock status: with septic shock Septic shock A41.9; R65.21 Hypertension I10 Hypertension type: essential hypertension DM type 2 (diabetes mellitus, type 2) E11.9 Diabetes mellitus terminal clerk insulin use: without detention use Diabetes mellitus complication status: without complication Pulmonary fibrosis J84.10 COPD (chronic obstructive pulmonary disease) J44.9 COPD type: unspecified COPD Right ventricular dysfunction I51.9 MILENA (acute kidney injury) N17.9 NSTEMI (non-ST elevated myocardial infarction) I21.4
[2019-08-06 13:57] LABS: Procalcitonin 0.05 ng/mL (0-0.5)
--- NOTE | 2019-08-06 16:46 | PC.NURSE ---
transfer to room 12 out of isolation room
[2019-08-06 20:47] LABS: Glucose Point of Care 297 mg/dL (70-110)
[2019-08-07] VITALS (35 sets, daily range): BP systolic 113–142; BP diastolic 63–84; PULSE 60–105; RESP 12–31; TEMP 36.6–36.8; O2SAT 27–101
[2019-08-07] MEDS: morphine 4 mg/mL SDV 1 mL IVP ×4 (00:38→21:21)
--- NOTE | 2019-08-07 01:29 | PC.NURSE ---
Physician Notified Pt restless and anxious on vent. Contact Dr. Zaidi at this time for difficult sedation and updated status on sedative infusion rates. pt on 150mcg fentanyl, Versed 8mg, propofol 60mcg/kg/min and precedex at 0.7. Orders to increase fentanyl and versed as needed for adequate sedation and closely monitor BP. BP currently 152/101.
[2019-08-07 03:47] LABS: Glucose Point of Care 448 mg/dL (70-110)
[2019-08-07] MEDS: ipratropium-albuterol 3 mL Neb INHALATION ×6 (04:12→23:40)
[2019-08-07] MEDS: pantoprazole DR 40 mg Tablet PO ×2 (05:27→17:19)
[2019-08-07] MEDS: FUROsemide 40 mg Tablet PO (07:30)
[2019-08-07] MEDS: enoxaparin 40 mg/0.4 mL Syringe SUBCUT (07:30)
[2019-08-07] MEDS: budesonide 0.5 mg/2 mL Neb INHALATION ×2 (08:05→20:39)
[2019-08-07] MEDS: gabapentin 300 mg Capsule PO ×3 (08:18→21:22)
[2019-08-07] MEDS: losartan 50 mg Tablet PO (08:18)
[2019-08-07] MEDS: dilTIAZem ER (24HR) 240 mg Capsule PO (08:18)
[2019-08-07] MEDS: potassium chloride ER 10 mEq Tablet 40 MEQ PO (08:18)
[2019-08-07] MEDS: metoprolol tartrate 25 mg Tablet PO ×2 (08:18→17:19)
[2019-08-07] MEDS: polyethylene glycol 3350 Pkt 17 gm PO (08:18)
[2019-08-07] MEDS: benzonatate 100 mg Capsule PO ×3 (08:18→21:22)
[2019-08-07] MEDS: atorvastatin 40 mg Tablet PO (08:18)
--- NOTE | 2019-08-07 09:07 | PC.NURSE ---
up in room at this time morphine given for air hunger and restless. am breakfast with good appitite at this time very short of breath with any activity on 100% o2 high flow
[2019-08-07] MEDS: ALPRAZolam 0.25 mg Tablet PO (09:30)
--- NOTE | 2019-08-07 09:33 | PC.NURSE ---
am care done and nerve medicine given
[2019-08-07 11:28] LABS: Glucose Point of Care 420 mg/dL (70-110)
--- NOTE | 2019-08-07 11:39 | P.PN_ITS ---
Subjective Subjective: Interval history: Patient continues to require very high oxygen. Tachypnea and work of breathing appears to be better today. Medications: Reviewed: Yes Vitals/I&O/Wt Last Vital Signs Temp 97.8 F 08/07/19 05:31 Pulse 99 08/07/19 11:23 Resp 25 H 08/07/19 11:23 BP 125/83 08/07/19 10:00 Pulse Ox 88 L 08/07/19 11:23 08/06/19 08/07/19 08/07/19 22:59 06:59 14:59 Intake Total 710 / 1380 240 / 1620 350 / 350 Output Total 1075 / 1525 800 / 800 Balance -365 / -145 240 / 95 -450 / -450 Physical Exam Narrative: EXAM NARRATIVE: GEN: Awake, alert and oriented, tachypneic, mouth breathing, appears slightly more comfortable compared to yesterday. HEENT high flow nasal cannula in place. CVS: S1S2 N RS: Bilateral fine rales on auscultation. Abd: Soft, nt/nd , bs+ LIFT BUILDER WHOLE: no focal neuro deficits Urinary Catheter Management^: Casey: Cath Placed During This Visit: yes Reason for Continuing Indwelling Catheter: Accurate Measurement of Urinary Output in Critically Ill Patients Urinary Catheter Date of Insertion: 07/24/19 Urinary Catheter Time of Insertion: 18:22 Data : 08/06/19 04:24 08/06/19 04:24 A&P Assessment and plan (1) Sepsis with acute hypoxic respiratory failure: Status: Acute Qualifiers: Sepsis type: sepsis due to unspecified organism Severe sepsis shock status: with septic shock Qualified Code(s): A41.9 - Sepsis, unspecified organism; R65.21 - Severe sepsis with septic shock; J96.01 - Acute respiratory failure with hypoxia (2) Septic shock: Status: Acute (3) Hypertension: Status: Acute Qualifiers: Hypertension type: essential hypertension Qualified Code(s): I10 - Essential (primary) hypertension (4) DM type 2 (diabetes mellitus, type 2): Status: Acute Qualifiers: Diabetes mellitus longterm insulin use: without exterminator helper use Diabetes mellitus complication status: without complication Qualified Code(s): E11.9 - Type 2 diabetes mellitus without complications (5) Pulmonary fibrosis: Status: Acute (6) COPD (chronic obstructive pulmonary disease): Status: Acute Qualifiers: COPD type: unspecified COPD Qualified Code(s): J44.9 - Chronic obstructive pulmonary disease, unspecified (7) Right ventricular dysfunction: Status: Acute (8) MILENA (acute kidney injury): Status: Acute (9) NSTEMI (non-ST elevated myocardial infarction): Status: Acute Additional A&P Information #1 acute hypoxic respiratory failure secondary to idiopathic pulmonary fibrosis, exacerbation of idiopathic pulmonary fibrosis -CT scan shows severe worsening of interstitial pulmonary fibrosis, severe honeycombing, new bilateral groundglass opacities that all indicate severe underlying interstitial pulmonary fibrosis, with acute exacerbation. Overall progressive since CT in 2017. - increase steroids to 80mg iv q8h yesterday however without any significant changes in his condition. In fact he appears to be having worsening respiratory status. appreciate pulmonary recommendations, patient's condition is terminal, has a high mortality rate in the next few weeks to month, and likely patient would not have any meaningful recovery if he were to be intubated, likely would not ever come off ventilator. -per discussin between Dr. rico and [facility], patient's is not a candidate for double lung transplant, nor is he a candidate for tyrosine kinase inhibitors, or experimental treatments, and they have rejected the transfer as there is nothing else they can do for him at this time -Patient continues to be on hi Flow NC -Patient reiterates multiple times that he does eventually want to go home in spite of understanding extremely poor prognosis. He has declined hospice or comfort measures in the past, however will have a discussion with him again regarding these. He did come to terms with this condition and made himself DNR/DNI yesterday. Given his worsening clinical status we will additionally discuss comfort measures with him should the need arise. I had an extensive discussion with his family, son MARGO yesterday as well regarding this. His family is in agreement for DNR/DNI and comfort measures, however we have held off until now in accordance with patient's wishes as he wants to continue with the current line of treatment. - Unable to replicate HFNC at home, therefore looking for transfer to LTAC facility as high amounts of oxygen can only be given in hospitalized care -Broad-spectrum antibiotics including zosyn, zyvox/vanc/azithro between 07/23- 08/02/19 to cover for possible HCAP incl MRSA PNA. Completed adequate course. Serial procalcitonin have been negative. Given worsening of respiratory status, chest x-ray was repeated yesterday which did not show any evidence of new developing infiltrates. It was consistent with known worse interstitial lung disease. Will repeat procalcitonin. - Continue budesonide and duoneb inhalation -Unlikely to be PE as a contributor here as patient has been on adequate prophylaxis with Lovenox. # Severe right ventricular dysfunction with pulmonary hypertension: -Patient's echocardiogram shows severe right heart strain, severely decreased right ventricular systolic function,, right atrial pressure 20 mmHg, last troponin is 140 Secondary to idiopathic pulmonary fibrosis, Ddiuresing well but increasing 02 requirements. Continue Lasix, titrating based on urine output and renal function. 2. Septic shock, now resolved D/c antibiotics, adequate course since 07/23-08/01 persisting leukocytosis more likely to be marginationf rom steroids. No fever, s/p adequate course of abx, procalcitonin negative several times incl on 08/05. #3 acute hypoxic respiratory failure Echo evidence of right heart strain on echocardiogram (though this may be related to underlying interstitial lung disease) Lower extremity Doppler performed in the ER is without any evidence of DVT. COVID testing negative x2 #3 diabetes mellitus, Continue high-dose sliding scale + levemir 15 U bid #4 hypotension, resolved, off Levophed #5 NSTEMI: Likely related to right heart strain, acute hypoxic respiratory failure, last troponin I 140 trending down, no chest pain, EKG shows T wave inversions in anterior chest leads, continue aspirin and statin #6 history of COPD and interstitial lung disease #7 acute kidney injury, likely as a result of sepsis Dvt ppx: lovenox DNR/DNI Attestations Medical Necessity Statement*: Continues to require extremely high oxygen requirements. Initially declined insurance transfer to LTAC. Appealed the process awaiting final decision Coding Level of Care Code Acute Superintendent Recreation for [facility] Fwd Diagnoses Sepsis with acute hypoxic respiratory failure A41.9; R65.21; J96.01 Sepsis type: sepsis due to unspecified organism Severe sepsis shock status: with septic shock Septic shock A41.9; R65.21 Hypertension I10 Hypertension type: essential hypertension DM type 2 (diabetes mellitus, type 2) E11.9 Diabetes mellitus longterm insulin use: without longterm use Diabetes mellitus complication status: without complication Pulmonary fibrosis J84.10 COPD (chronic obstructive pulmonary disease) J44.9 COPD type: unspecified COPD Right ventricular dysfunction I51.9 MILENA (acute kidney injury) N17.9 NSTEMI (non-ST elevated myocardial infarction) I21.4
[2019-08-07 15:28] LABS: Glucose Point of Care 323 mg/dL (70-110)
[2019-08-07 16:41] LABS: Glucose Point of Care 362 mg/dL (70-110)
[2019-08-07 21:53] LABS: Glucose Point of Care 330 mg/dL (70-110)
[2019-08-08] VITALS (39 sets, daily range): BP systolic 104–123; BP diastolic 70–92; PULSE 81–111; RESP 11–34; TEMP 35.8–36.9; O2SAT 84–91
[2019-08-08] MEDS: ALPRAZolam 0.25 mg Tablet PO ×2 (00:04→16:24)
[2019-08-08 03:29] LABS: Basophils % 0.1 %; Hematocrit 48.8 % (42.0-52.0); Hemoglobin 15.5 g/dL (11.7-16.6); Lymphocytes # 0.5 10^3/uL (0.8-4.8); Lymphocytes % 2.4 %; Mean Corpuscular HGB Conc 31.8 g/dL (30.0-36.0); Mean Corpuscular Hemoglobin 30.3 pg (28.0-34.0); Mean Corpuscular Volume 95.3 fL (80-94); Mean Platelet Volume 12.3 fL (7.4-10.4); Monocytes # 1.1 10^3/uL (0.2-0.9); Monocytes % 4.9 %; Neutrophils # 20.4 10^3/uL (1.8-7.7); Neutrophils % 91.8 %; Nucleated Red Blood Cells % 0 %; Platelet Count 275 10^3/cmm (130-400); Red Blood Count 5.12 10^6/uL (4.1-5.3); White Blood Count 22.2 10^3/uL (4.0-10.0)
[2019-08-08 03:46] LABS: Alanine Aminotransferase 10 U/L (0-41); Albumin Level 3.2 g/dL (3.5-5.2); Alkaline Phosphatase 95 IU/L (40-130); Aspartate Amino Transferase 9 U/L (0-40); Blood Urea Nitrogen 45 mg/dL (8-23); Calcium 8.8 mg/dL (8.5-10.5); Carbon Dioxide 28 mmol/L (22-29); Chloride 101 mmol/L (98-107); Globulin 2.9 g/dL (1.3-4.6); Glomerular Filtration Rate 74.5 mL/min (90-130); Glucose 311 mg/dL (65-115); Osmolality Calculated 298 mOsm/kg (285-295); Sodium 139 mmol/L (136-145); Total Bilirubin 0.4 mg/dL (0.15-1.2); Total Protein 6.1 g/dL (6.6-8.7)
[2019-08-08] MEDS: ipratropium-albuterol 3 mL Neb INHALATION ×6 (04:02→23:13)
[2019-08-08] MEDS: morphine 4 mg/mL SDV 1 mL IVP ×6 (05:16→23:43)
[2019-08-08] MEDS: pantoprazole DR 40 mg Tablet PO ×2 (05:29→17:09)
[2019-08-08] MEDS: FUROsemide 40 mg Tablet PO (07:35)
[2019-08-08] MEDS: enoxaparin 40 mg/0.4 mL Syringe SUBCUT (07:35)
[2019-08-08 08:02] LABS: Glucose Point of Care 373 mg/dL (70-110)
[2019-08-08] MEDS: budesonide 0.5 mg/2 mL Neb INHALATION ×2 (08:11→20:18)
[2019-08-08] MEDS: atorvastatin 40 mg Tablet PO (08:18)
[2019-08-08] MEDS: gabapentin 300 mg Capsule PO ×3 (08:19→20:26)
[2019-08-08] MEDS: losartan 50 mg Tablet PO (08:19)
[2019-08-08] MEDS: dilTIAZem ER (24HR) 240 mg Capsule PO (08:19)
[2019-08-08] MEDS: benzonatate 100 mg Capsule PO ×3 (08:19→20:26)
[2019-08-08] MEDS: polyethylene glycol 3350 Pkt 17 gm PO (08:19)
[2019-08-08] MEDS: metoprolol tartrate 25 mg Tablet PO ×2 (08:19→17:10)
[2019-08-08] MEDS: potassium chloride ER 10 mEq Tablet 40 MEQ PO (08:20)
--- NOTE | 2019-08-08 11:12 | P.PN_ITS ---
Subjective Subjective: Interval history: This morning patient was examined, he sitting up in bed, stating that he has been feeling well for the last few days, no fevers, no chest pain, has intermittent episodes of shortness of breath, looks a little bit more tachypneic this morning than the last time I saw him a week ago, mild retractions, his oxygen saturations do drop into the 70s when talking to me, his FiO2 has increased to 90% on 40 L, he is been started on steroids, antibiotics have been stopped, he has been denied placement to a long-term care facility such as [facility], working on swing bed placement Medications: Reviewed: Yes Vitals/I&O/Wt Last Vital Signs Temp 98.4 F 08/08/19 08:00 Pulse 100 08/08/19 11:10 Resp 20 H 08/08/19 11:10 BP 104/74 08/08/19 10:00 Pulse Ox 89 L 08/08/19 11:10 08/07/19 08/08/19 08/08/19 22:59 06:59 14:59 Intake Total 350 / 1150 360 / 360 Output Total 1550 / 2350 650 / 650 Balance -1200 / -1200 -290 / -290 Physical Exam Const: COMMON NORMALS: patient oriented x3 OTHER: In mild distress HENMT: COMMON NORMALS: normocephalic HEAD & SCALP: normocephalic Neck/C-Spine: COMMON NORMALS: no JVD Resp: COMMON NORMALS: normal respiratory effort, No retractions (Intermittent mild retractions) and No use of accessory muscles EFFORT & INSPECTION: Yes able to speak in complete sentences, Yes tachypneic (Intermittent episodes of tachypnea) and Yes retractions Cardio: COMMON NORMALS: no JVD, regular rate, regular rhythm, S1 normal heart sound present and S2 normal heart sound present RATE: regular rate and tachycardic RHYTHM: regular rhythm HEART SOUNDS: S1 normal heart sound p resent and S2 normal heart sound present GI: COMMON NORMALS: Normal to inspection, nondistended, normoactive bowel sounds present, Soft to palpation, non-tender, No hepatosplenomegaly present, no masses and no bruits PALPATION: Yes Soft to palpation and Yes No hepatosple nomegaly present Extremity: COMMON NORMALS: capillary refill normal, no clubbing, cyanosis or edema, no calf tenderness and no pedal edema Neuro: COMMON NORMALS: patient oriented x3 Urinary Catheter Management^: Casey: Cath Placed During This Visit: yes Reason for Continuing Indwelling Catheter: Accurate Measurement of Urinary Output in Critically Ill Patients Urinary Catheter Date of Insertion: 07/24/19 Urinary Catheter Time of Insertion: 18:22 Data : 08/08/19 03:01 08/08/19 03:01 A&P Assessment and plan (1) Sepsis with acute hypoxic respiratory failure: Status: Acute Qualifiers: Sepsis type: sepsis due to unspecified organism Severe sepsis shock status: with septic shock Qualified Code(s): A41.9 - Sepsis, unspecified organism; R65.21 - Severe sepsis with septic shock; J96.01 - Acute respiratory failure with hypoxia (2) Septic shock: Status: Acute (3) Hypertension: Status: Acute Qualifiers: Hypertension type: essential hypertension Qualified Code(s): I10 - Essential (primary) hypertension (4) DM type 2 (diabetes mellitus, type 2): Status: Acute Qualifiers: Diabetes mellitus detention insulin use: without detention use Diabetes mellitus complication status: without complication Qualified Code(s): E11.9 - Type 2 diabetes mellitus without complications (5) Pulmonary fibrosis: Status: Acute (6) COPD (chronic obstructive pulmonary disease): Status: Acute Qualifiers: COPD type: unspecified COPD Qualified Code(s): J44.9 - Chronic obstructive pulmonary disease, unspecified (7) Right ventricular dysfunction: Status: Acute (8) MILENA (acute kidney injury): Status: Acute (9) NSTEMI (non-ST elevated myocardial infarction): Status: Acute Additional A&P Information #1 acute hypoxic respiratory failure secondary to idiopathic pulmonary fibrosis, exacerbation of idiopathic pulmonary fibrosis -CT scan shows severe worsening of interstitial pulmonary fibrosis, severe honeycombing, new bilateral groundglass opacities that all indicate severe underlying interstitial pulmonary fibrosis, with acute exacerbation. Overall progressive since CT in 2017. - increase steroids to 80mg iv q8h yesterday however without any significant changes in his condition. In fact he appears to be having worsening respiratory status. appreciate pulmonary recommendations, patient's condition is terminal, has a high mortality rate in the next few weeks to month, and likely patient would not have any meaningful recovery if he were to be intubated, likely would not ever come off ventilator. -per discussin between Dr. rico and [facility], patient's is not a candidate for double lung transplant, nor is he a candidate for tyrosine kinase inhibitors, or experimental treatments, and they have rejected the transfer as there is nothing else they can do for him at this time -Patient continues to be on hi Flow NC -Patient reiterates multiple times that he does eventually want to go home in spite of understanding extremely poor prognosis. He has declined hospice or comfort measures in the past, however will have a discussion with him again regarding these. He did come to terms with this condition and made himself DNR/DNI yesterday. Given his worsening clinical status we will additionally discuss comfort measures with him should the need arise. I had an extensive discussion with his family, son MARGO yesterday as well regarding this. His family is in agreement for DNR/DNI and comfort measures, however we have held off until now in accordance with patient's wishes as he wants to continue with the current line of treatment. - Unable to replicate HFNC at home, therefore looking for transfer to LTAC facility as high amounts of oxygen can only be given in hospitalized care, insurance has declined LTAC twice, working on third attempt, considering swing bed -Broad-spectrum antibiotics including zosyn, zyvox/vanc/azithro between 07/23- 08/02/19 to cover for possible HCAP incl MRSA PNA. Completed adequate course. Serial procalcitonin have been negative. Given worsening of respiratory status, chest x-ray was repeated yesterday which did not show any evidence of new developing infiltrates. It was consistent with known worse interstitial lung disease. Will repeat procalcitonin. - Continue budesonide and duoneb inhalation -Unlikely to be PE as a contributor here as patient has been on adequate prophylaxis with Lovenox. # Severe right ventricular dysfunction with pulmonary hypertension: -Patient's echocardiogram shows severe right heart strain, severely decreased right ventricular systolic function,, right atrial pressure 20 mmHg, last troponin is 140 Secondary to idiopathic pulmonary fibrosis, Ddiuresing well but increasing 02 requirements. Continue Lasix, titrating based on urine output and renal function. 2. Septic shock, now resolved D/c antibiotics, adequate course since 07/23-08/01 persisting leukocytosis more likely to be marginationf rom steroids. No fever, s/p adequate course of abx, procalcitonin negative several times incl on 08/05. #3 acute hypoxic respiratory failure Echo evidence of right heart strain on echocardiogram (though this may be related to underlying interstitial lung disease) Lower extremity Doppler performed in the ER is without any evidence of DVT. COVID testing negative x2 #3 diabetes mellitus, Continue high-dose sliding scale + levemir 15 U bid #4 hypotension, resolved, off Levophed #5 NSTEMI: Likely related to right heart strain, acute hypoxic respiratory failure, last troponin I 140 trending down, no chest pain, EKG shows T wave inversions in anterior chest leads, continue aspirin and statin #6 history of COPD and interstitial lung disease #7 acute kidney injury, likely as a result of sepsis Dvt ppx: lovenox DNR/DNI Attestations Medical Necessity Statement*: Patient requires continued hospitalization due to acute respiratory failure second idiopathic pulmonary fibrosis, working on swing bed placement Coding Level of Care Code Acute Plastic Shaper for [facility] Fwd Diagnoses Sepsis with acute hypoxic respiratory failure A41.9; R65.21; J96.01 Sepsis type: sepsis due to unspecified organism Severe sepsis shock status: with septic shock Septic shock A41.9; R65.21 Hypertension I10 Hypertension type: essential hypertension DM type 2 (diabetes mellitus, type 2) E11.9 Diabetes mellitus oysterman insulin use: without detention use Diabetes mellitus complication status: without complication Pulmonary fibrosis J84.10 COPD (chronic obstructive pulmonary disease) J44.9 COPD type: unspecified COPD Right ventricular dysfunction I51.9 MILENA (acute kidney injury) N17.9 NSTEMI (non-ST elevated myocardial infarction) I21.4
[2019-08-08 11:45] LABS: Glucose Point of Care 341 mg/dL (70-110)
--- NOTE | 2019-08-08 15:30 | PC.OT ---
OT tx attempted at this time. Pt up in chair with labored breathing. Nursing with pt and providing medication. Pt requests to hold OT tx until tomorrow.
--- NOTE | 2019-08-08 15:38 | PC.NURSE ---
1530 remains up in chair.
--- NOTE | 2019-08-08 16:39 | PC.NURSE ---
1630-back to bed. joão. any activity poorly.
[2019-08-08 17:00] LABS: Glucose Point of Care 377 mg/dL (70-110)
[2019-08-08 21:57] LABS: Glucose Point of Care 285 mg/dL (70-110)
[2019-08-09] VITALS (36 sets, daily range): BP systolic 123–147; BP diastolic 66–89; PULSE 65–98; RESP 10–33; TEMP 36.8–37.1; O2SAT 83–92
[2019-08-09] MEDS: morphine 4 mg/mL SDV 1 mL IVP ×5 (02:14→21:19)
[2019-08-09] MEDS: ipratropium-albuterol 3 mL Neb INHALATION ×5 (03:47→19:55)
[2019-08-09 04:41] LABS: Basophils % 0.1 %; Hematocrit 52.6 % (42.0-52.0); Lymphocytes # 0.6 10^3/uL (0.8-4.8); Lymphocytes % 2.9 %; Mean Corpuscular HGB Conc 30.4 g/dL (30.0-36.0); Mean Corpuscular Hemoglobin 29.6 pg (28.0-34.0); Mean Corpuscular Volume 97.4 fL (80-94); Mean Platelet Volume 11.6 fL (7.4-10.4); Monocytes # 0.9 10^3/uL (0.2-0.9); Neutrophils # 19.9 10^3/uL (1.8-7.7); Neutrophils % 92.2 %; Nucleated Red Blood Cells % 0 %; Platelet Count 222 10^3/cmm (130-400); Red Cell Distribution Width 14.1 % (12.1-15.1); White Blood Count 21.5 10^3/uL (4.0-10.0)
[2019-08-09 05:19] LABS: Procalcitonin 0.06 ng/mL (0-0.5)
[2019-08-09 05:38] LABS: Alanine Aminotransferase 12 U/L (0-41); Albumin Level 3.1 g/dL (3.5-5.2); Alkaline Phosphatase 99 IU/L (40-130); Anion Gap 18.5 (5-19); Aspartate Amino Transferase 11 U/L (0-40); Blood Urea Nitrogen 39 mg/dL (8-23); Calcium 9.4 mg/dL (8.5-10.5); Carbon Dioxide 26 mmol/L (22-29); Chloride 99 mmol/L (98-107); Globulin 3.5 g/dL (1.3-4.6); Glomerular Filtration Rate 74.5 mL/min (90-130); Glucose 275 mg/dL (65-115); Magnesium 2.7 mg/dL (1.7-2.3); Osmolality Calculated 293 mOsm/kg (285-295); Phosphorus 4.8 mg/dL (2.5-4.5); Potassium 5.5 mmol/L (3.5-5.1); Sodium 138 mmol/L (136-145); Total Bilirubin 0.5 mg/dL (0.15-1.2); Total Protein 6.6 g/dL (6.6-8.7)
[2019-08-09] MEDS: pantoprazole DR 40 mg Tablet PO ×2 (05:58→17:38)
--- NOTE | 2019-08-09 07:00 | XRR_ITS ---
XR/XR chest 1V portable [id number] PROCEDURE INFORMATION: Exam: XR Chest, 1 View Exam date and time: 08/09/2019 4:34 AM Age: 69 years old Clinical indication: Shortness of breath; Additional info: SOB TECHNIQUE: Imaging protocol: XR of the chest Views: 1 view. COMPARISON: CR (CHEST, ) 07/24/2019 1:11 PM FINDINGS: Lungs: Emphysematous change and bilateral interstitial disease. Poorly defined 3.8 cm nodular density overlying the left suprahilar region, warranting CT correlation. Pleural space: No significant pleural effusion. Heart/Mediastinum: Cardiomegaly. Vasculature: Ectasia of the thoracic aorta. Bones/joints: Osteopenia and degenerative change. 1. IMPRESSION: Emphysematous change and bilateral interstitial disease. 2. Poorly defined 3.8 cm nodular density overlying the left suprahilar region, warranting CT correlation.
[2019-08-09] MEDS: budesonide 0.5 mg/2 mL Neb INHALATION ×2 (07:38→19:56)
[2019-08-09] MEDS: enoxaparin 40 mg/0.4 mL Syringe SUBCUT (09:33)
[2019-08-09] MEDS: ALPRAZolam 0.25 mg Tablet PO (09:36)
[2019-08-09] MEDS: atorvastatin 40 mg Tablet PO (09:36)
[2019-08-09] MEDS: gabapentin 300 mg Capsule PO ×3 (09:36→21:19)
[2019-08-09] MEDS: dilTIAZem ER (24HR) 240 mg Capsule PO (09:36)
[2019-08-09] MEDS: potassium chloride ER 10 mEq Tablet 40 MEQ PO (09:36)
[2019-08-09] MEDS: benzonatate 100 mg Capsule PO ×3 (09:36→21:19)
[2019-08-09] MEDS: metoprolol tartrate 25 mg Tablet PO ×2 (09:37→17:38)
[2019-08-09] MEDS: FUROsemide 40 mg Tablet PO (09:37)
[2019-08-09] MEDS: losartan 50 mg Tablet PO (09:37)
[2019-08-09] MEDS: bisacodyl 5 mg Tablet PO (09:43)
--- NOTE | 2019-08-09 11:10 | P.PN_ITS ---
Subjective Subjective: Interval history: This morning patient was sleeping, I will woke him up, he said that he is doing fine, he was able to get up to the side of the bed, denies feeling short of breath, no retractions, nasal flaring, or desaturations during my examination this morning, he is on 98% 40 L, awaiting placement to swing bed Vitals/I&O/Wt Last Vital Signs Temp 98.4 F 08/09/19 06:00 Pulse 83 08/09/19 10:00 Resp 30 H 08/09/19 10:00 BP 132/77 08/09/19 10:00 Pulse Ox 88 L 08/09/19 10:00 08/08/19 08/09/19 08/09/19 22:59 06:59 14:59 Intake Total 600 / 960 500 / 500 Output Total 350 / 1000 475 / 1475 400 / 400 Balance 250 / -40 -475 / -515 100 / 100 Physical Exam Const: COMMON NORMALS: no acute distress and patient oriented x3 HENMT: COMMON NORMALS: normocephalic HEAD & SCALP: normocephalic Neck/C-Spine: COMMON NORMALS: no JVD Resp: COMMON NORMALS: normal respiratory effort and No use of accessory muscles AUSCULTATION: diminished lung sounds Cardio: COMMON NORMALS: no JVD, regular rate, regular rhythm, S1 normal heart sound present and S2 normal heart sound present RATE: regular rate RHYTHM: regular rhythm HEART SOUNDS: S1 normal heart sound present and S2 normal heart sound present GI: COMMON NORMALS: Normal to inspection, nondistended, normoactive bowel sounds present, Soft to palpation, non-tender, No hepatosplenomegaly present, no masses and no bruits PALPATION: Yes Soft to palpation and Yes No hepatosplenomegaly present Extremity: COMMON NORMALS: capillary refill normal, no clubbing, cyanosis or edema, no calf tenderness and no pedal edema Neuro: COMMON NORMALS: patient oriented x3 Psych: COMMON NORMALS: mental status grossly normal Urinary Catheter Management^: Casey: Cath Placed During This Visit: yes Reason for Continuing Indwelling Catheter: Accurate Measurement of Urinary O utput in Critically Ill Patients Urinary Catheter Date of Insertion: 07/24/19 Urinary Catheter Time of Insertion: 18:22 Data : 08/09/19 04:15 08/09/19 04:15 A&P Assessment and plan (1) Sepsis with acute hypoxic respiratory failure: Status: Acute Qualifiers: Sepsis type: sepsis due to unspecified organism Severe sepsis shock status: with septic shock Qualified Code(s): A41.9 - Sepsis, unspecified organism; R65.21 - Severe sepsis with septic shock; J96.01 - Acute respiratory failure with hypoxia (2) Septic shock: Status: Acute (3) Hypertension: Status: Acute Qualifiers: Hypertension type: essential hypertension Qualified Code(s): I10 - Essential (primary) hypertension (4) DM type 2 (diabetes mellitus, type 2): Status: Acute Qualifiers: Diabetes mellitus senior care insulin use: without termite exterminator use Diabetes mellitus complication status: without complication Qualified Code(s): E11.9 - Type 2 diabetes mellitus without complications (5) Pulmonary fibrosis: Status: Acute (6) COPD (chronic obstructive pulmonary disease): Status: Acute Qualifiers: COPD type: unspecified COPD Qualified Code(s): J44.9 - Chronic obstruct rick pulmonary disease, unspecified (7) Right ventricular dysfunction: Status: Acute (8) MILENA (acute kidney injury): Status: Acute (9) NSTEMI (non-ST elevated myocardial infarction): Status: Acute Additional A&P Information #1 acute hypoxic respiratory failure secondary to idiopathic pulmonary fibrosis, exacerbation of idiopathic pulmonary fibrosis -CT scan shows severe worsening of interstitial pulmonary fibrosis, severe honeycombing, new bilateral groundglass opacities that all indicate severe underlying interstitial pulmonary fibrosis, with acute exacerbation. Overall progressive since CT in 2017. - increase steroids to 80mg iv q8h yesterday however without any significant changes in his condition. In fact he appears to be having worsening respiratory status. appreciate pulmonary recommendations, patient's condition is terminal, has a high mortality rate in the next few weeks to month, and likely patient would not have any meaningful recovery if he were to be intubated, likely would not ever come off ventilator. -per discussin between Dr. rico and [facility], patient's is not a candidate for double lung transplant, nor is he a candidate for tyrosine kinase inhibitors, or experimental treatments, and they have rejected the transfer as there is nothing else they can do for him at this time -Patient continues to be on hi Flow NC -Patient reiterates multiple times that he does eventually want to go home in spite of understanding extremely poor prognosis. He has declined hospice or comfort measures in the past, however will have a discussion with him again regarding these. He did come to terms with this condition and made himself DNR/DNI yesterday. Given his worsening clinical status we will additionally discuss comfort measures with him should the need arise. I had an extensive d iscussion with his family, son MARGO yesterday as well regarding this. His family is in agreement for DNR/DNI and comfort measures, however we have held off until now in accordance with patient's wishes as he wants to continue with the current line of treatment. - Unable to replicate HFNC at home, therefore looking for transfer to LTAC facility as high amounts of oxygen can only be given in hospitalized care, insurance has declined LTAC twice, working on third attempt, considering swing bed -Broad-spectrum antibiotics including zosyn, zyvox/vanc/azithro between 07/23- 08/02/19 to cover for possible HCAP incl MRSA PNA. Completed adequate course. Serial procalcitonin have been negative. Given worsening of respiratory status, chest x-ray was repeated yesterday which did not show any evidence of new developing infiltrates. It was consistent with known worse interstitial lung disease. Will repeat procalcitonin. -Patient's oxygen requirements have increased to 90% 40 L -Continue Solu-Medrol 80 every 8 - Continue budesonide and duoneb inhalation -This morning patient does not show evidence of respiratory distress # Severe right ventricular dysfunction with pulmonary hypertension: -Patient's echocardiogram shows severe right heart strain, severely decreased right ventricular systolic function,, right atrial pressure 20 mmHg, last troponin is 140 Secondary to idiopathic pulmonary fibrosis, Ddiuresing well but increasing 02 requirements. Continue Lasix, titrating based on urine output and renal function. 2. Septic shock, now resolved D/c antibiotics, adequate course since 07/23-08/01 persisting leukocytosis more likely to be marginationf rom steroids. No fever, s/p adequate course of abx, procalcitonin negative several times incl on 08/05. #3 acute hypoxic respiratory failure Echo evidence of right heart strain on echocardiogram (though this may be related to underlying interstitial lung disease) Lower extremity Doppler performed in the ER is without any evidence of DVT. COVID testing negative x2 #3 diabetes mellitus, Continue high-dose sliding scale + levemir 15 U bid #4 hypotension, resolved, off Levophed #5 NSTEMI: Likely related to right heart strain, acute hypoxic respiratory failure, last troponin I 140 trending down, no chest pain, EKG shows T wave in versions in anterior chest leads, continue aspirin and statin #6 history of COPD and interstitial lung disease #7 acute kidney injury, likely as a result of sepsis Dvt ppx: lovenox DNR/DNI Attestations Medical Necessity Statement*: Patient requires continued hospitalization for acute respiratory failure Coding Level of Care Code Acute Food Assembler Kitchen for [facility] Fwd Diagnoses Sepsis with acute hypoxic respiratory failure A41.9; R65.21; J96.01 Sepsis type: sepsis due to unspecified organism Severe sepsis shock status: with septic shock Septic shock A41.9; R65.21 Hypertension I10 Hypertension type: essential hypertension DM type 2 (diabetes mellitus, type 2) E11.9 Diabetes mellitus termite exterminator insulin use: without termite exterminator use Diabetes mellitus complication status: without complication Pulmonary fibrosis J84.10 COPD (chronic obstructive pulmonary disease) J44.9 COPD type: unspecified COPD Right ventricular dysfunction I51.9 MILENA (acute kidney injury) N17.9 NSTEMI (non-ST elevated myocardial infarction) I21.4
[2019-08-09 11:21] LABS: Glucose Point of Care 270 mg/dL (70-110)
[2019-08-09 11:21] LABS: Glucose Point of Care 240 mg/dL (70-110)
[2019-08-09 16:49] LABS: Glucose Point of Care 225 mg/dL (70-110)
[2019-08-09 21:30] LABS: Glucose Point of Care 195 mg/dL (70-110)
[2019-08-10] VITALS (38 sets, daily range): BP systolic 119–145; BP diastolic 74–90; PULSE 64–110; RESP 10–38; TEMP 36.4–36.8; O2SAT 77–96
[2019-08-10] MEDS: ipratropium-albuterol 3 mL Neb INHALATION ×7 (00:08→23:19)
[2019-08-10 04:57] LABS: Basophils % 0.1 %; Hematocrit 53.4 % (42.0-52.0); Hemoglobin 16.4 g/dL (11.7-16.6); Lymphocytes # 0.6 10^3/uL (0.8-4.8); Lymphocytes % 2.7 %; Mean Corpuscular HGB Conc 30.7 g/dL (30.0-36.0); Mean Corpuscular Hemoglobin 29.5 pg (28.0-34.0); Mean Platelet Volume 12.2 fL (7.4-10.4); Monocytes # 0.7 10^3/uL (0.2-0.9); Monocytes % 3.1 %; Neutrophils % 93.6 %; Nucleated Red Blood Cells % 0 %; Platelet Count 183 10^3/cmm (130-400); Red Blood Count 5.56 10^6/uL (4.1-5.3); Red Cell Distribution Width 13.9 % (12.1-15.1); White Blood Count 21.3 10^3/uL (4.0-10.0)
[2019-08-10] MEDS: pantoprazole DR 40 mg Tablet PO ×2 (05:07→18:44)
[2019-08-10] MEDS: morphine 4 mg/mL SDV 1 mL IVP ×5 (05:07→20:14)
[2019-08-10 05:30] LABS: Alanine Aminotransferase 13 U/L (0-41); Albumin Level 3.3 g/dL (3.5-5.2); Alkaline Phosphatase 98 IU/L (40-130); Anion Gap 19.1 (5-19); Aspartate Amino Transferase 15 U/L (0-40); Blood Urea Nitrogen 39 mg/dL (8-23); Calcium 9.4 mg/dL (8.5-10.5); Carbon Dioxide 26 mmol/L (22-29); Chloride 98 mmol/L (98-107); Glomerular Filtration Rate 96.4 mL/min (90-130); Glucose 211 mg/dL (65-115); Magnesium 2.5 mg/dL (1.7-2.3); Osmolality Calculated 290 mOsm/kg (285-295); Phosphorus 4.4 mg/dL (2.5-4.5); Potassium 5.1 mmol/L (3.5-5.1); Procalcitonin 0.06 ng/mL (0-0.5); Sodium 138 mmol/L (136-145); Total Bilirubin 0.7 mg/dL (0.15-1.2); Total Protein 6.3 g/dL (6.6-8.7)
[2019-08-10 07:16] LABS: Glucose Point of Care 224 mg/dL (70-110)
[2019-08-10] MEDS: enoxaparin 40 mg/0.4 mL Syringe SUBCUT (07:34)
[2019-08-10] MEDS: FUROsemide 40 mg Tablet PO (07:34)
--- NOTE | 2019-08-10 07:54 | PC.NURSE ---
Sent a message for Dr. Romano, pt xanax and Morphine orders are , needing those reordered.
[2019-08-10] MEDS: budesonide 0.5 mg/2 mL Neb INHALATION ×2 (08:11→19:35)
[2019-08-10] MEDS: gabapentin 300 mg Capsule PO ×3 (08:48→21:11)
[2019-08-10] MEDS: losartan 50 mg Tablet PO (08:48)
[2019-08-10] MEDS: atorvastatin 40 mg Tablet PO (08:48)
[2019-08-10] MEDS: metoprolol tartrate 25 mg Tablet PO ×2 (08:48→18:44)
[2019-08-10] MEDS: benzonatate 100 mg Capsule PO ×3 (08:49→21:11)
[2019-08-10] MEDS: polyethylene glycol 3350 Pkt 17 gm PO (08:49)
[2019-08-10] MEDS: dilTIAZem ER (24HR) 240 mg Capsule PO (08:49)
[2019-08-10] MEDS: potassium chloride ER 10 mEq Tablet 40 MEQ PO (08:49)
[2019-08-10] MEDS: ALPRAZolam 0.25 mg Tablet PO ×2 (09:19→18:36)
--- NOTE | 2019-08-10 10:05 | PC.SOCIAL ---
IMM Updated Page 2 of IMM updated and provided to patient. Initialed, dated, and timed and placed back in chart.
[2019-08-10 11:44] LABS: Glucose Point of Care 261 mg/dL (70-110)
--- NOTE | 2019-08-10 14:16 | P.PN_ITS ---
Subjective Subjective: Interval history: This morning patient has no complaints, no fevers, no chills, no nausea, no vomiting, was able to get up to a chair in the afternoon yesterday, Vitals/I&O/Wt Last Vital Signs Temp 97.6 F 08/10/19 14:00 Pulse 105 H 08/10/19 13:00 Resp 28 H 08/10/19 13:00 BP 122/90 08/10/19 13:00 Pulse Ox 83 L 08/10/19 13:00 08/09/19 08/10/19 08/10/19 22:59 06:59 14:59 Intake Total 500 / 1240 480 / 1720 560 / 560 Output Total 400 / 1150 650 / 1800 200 / 200 Balance 100 / 90 -170 / -80 360 / 360 Physical Exam Const: COMMON NORMALS: no acute distress and patient oriented x3 OTHER: In mild distress HENMT: COMMON NORMALS: normocephalic HEAD & SCALP: normocephalic Neck/C-Spine: COMMON NORMALS: no JVD Resp: COMMON NORMALS: normal respiratory effort and No retractions EFFORT & INSPECTION: Yes able to speak in complete sentences and Yes tachypneic AUSCULTATION: breath sounds absent Cardio: COMMON NORMALS: no JVD, regular rate, regular rhythm, S1 normal heart sound present and S2 normal heart sound present RATE: regular rate RHYTHM: regular rhythm HEART SOUNDS: S1 normal heart sound present and S2 normal heart sound present GI: COMMON NORMALS: Normal to inspection, nondistended, normoactive bowel sounds present, Soft to palpation, non-tender, No hepatosplenomegaly present, no masses and no bruits PALPATION: Yes Soft to palpation and Yes No hepatosplenomegaly present Extremity: COMMON NORMALS: capillary refill normal, no clubbing, cyanosis or edema, no calf tenderness and no pedal edema Neuro: COMMON NORMALS: patient oriented x3 Psych: COMMON NORMALS: mental status grossly normal Urinary Catheter Management^: Casey: Cath Placed During This Visit: yes Reason for Continuing Indwelling Catheter: Accurate Measurement of Urinary Output in Critically Ill Patients Urinary Catheter Date of Insertion: 07/24/19 Urinary Catheter Time of Insertion: 18:22 Data : 08/10/19 04:35 08/10/19 04:35 Micro: Microbiology 07/29/19 22:53 Respiratory Virus Antigen Screen - Final Nasopharyngeal A&P Assessment and plan (1) Sepsis with acute hypoxic respiratory failure: Status: Acute Qualifiers: Sepsis type: sepsis due to unspecified organism Severe sepsis shock status: with septic shock Qualified Code(s): A41.9 - Sepsis, unspecified organism; R65.21 - Severe sepsis with septic shock; J96.01 - Acute respiratory failure with hypoxia (2) Septic shock: Status: Acute (3) Hypertension: Status: Acute Qualifiers: Hypertension type: essential hypertension Qualified Code(s): I10 - Essential (primary) hypertension (4) DM type 2 (diabetes mellitus, type 2): Status: Acute Qualifiers: Diabetes mellitus counter intelligence insulin use: without counter intelligence use Diabetes mellitus complication status: without complication Qualified Code(s): E11.9 - Type 2 diabetes mellitus without complications (5) Pulmonary fibrosis: Status: Acute (6) COPD (chronic obstructive pulmonary disease): Status: Acute Qualifiers: COPD type: unspecified COPD Qualified Code(s): J44.9 - Chronic obstructive pulmonary disease, unspecified (7) Right ventricular dysfunction: Status: Acute (8) MILENA (acute kidney injury): Status: Acute (9) NSTEMI (non-ST elevated myocardial infarction): Status: Acute Additional A&P Information #1 acute hypoxic respiratory failure secondary to idiopathic pulmonary fibrosis, exacerbation of idiopathic pulmonary fibrosis -CT scan shows severe worsening of interstitial pulmonary fibrosis, severe honeycombing, new bilateral groundglass opacities that all indicate severe underlying interstitial pulmonary fibrosis, with acute exacerbation. Overall progressive since CT in 2017. - increase steroids to 80mg iv q8h yesterday however without any significant changes in his condition. In fact he appears to be having worsening respiratory status. appreciate pulmonary recommendations, patient's condition is terminal, has a high mortality rate in the next few weeks to month, and likely patient would not have any meaningful recovery if he were to be intubated, likely would not ever come off ventilator. -per discussin between Dr. rico and [facility], patient's is not a candidate for double lung transplant, nor is he a candidate for tyrosine kinase inhibitors, or experimental treatments, and they have rejected the transfer as there is nothing else they can do for him at this time -Patient continues to be on hi Flow NC -Patient reiterates multiple times that he does eventually want to go home in spite of understanding extremely poor prognosis. He has declined hospice or comfort measures in the past, however will have a discussion with him again regarding these. He did come to terms with this condition and made himself DNR/DNI yesterday. Given his worsening clinical status we will additionally discuss comfort measures with him should the need arise. I had an extensive discussion with his family, son MARGO yesterday as well regarding this. His family is in agreement for DNR/DNI and comfort measures, however we have held off until now in accordance with patient's wishes as he wants to continue with the current line of treatment. - Unable to replicate HFNC at home, therefore looking for transfer to LTAC facility as high amounts of oxygen can only be given in hospitalized care, insurance has declined LTAC twice, working on third attempt, considering swing bed -Broad-spectrum antibiotics including zosyn, zyvox/vanc/azithro between 07/23- 08/02/19 to cover for possible HCAP incl MRSA PNA. Completed adequate course. Serial procalcitonin have been negative. Given worsening of respiratory status, chest x-ray was repeated yesterday which did not show any evidence of new developing infiltrates. It was consistent with known worse interstitial lung disease. -Patient's oxygen requirements have increased to 90% 40 L -Continue Solu-Medrol 80 every 8 - Continue budesonide and duoneb inhalation -This morning patient does not show evidence of respiratory distress, awaiting swing bed placement # Severe right ventricular dysfunction with pulmonary hypertension: -Patient's echocardiogram shows severe right heart strain, severely decreased right ventricular systolic function,, right atrial pressure 20 mmHg, last troponin is 140 Secondary to idiopathic pulmonary fibrosis, Ddiuresing well but increasing 02 requirements. Continue Lasix, titrating based on urine output and renal function. 2. Septic shock, now resolved D/c antibiotics, adequate course since 07/23-08/01 persisting leukocytosis more likely to be marginationf rom steroids. No fever, s/p adequate course of abx, procalcitonin negative several times incl on 08/05. #3 acute hypoxic respiratory failure Echo evidence of right heart strain on echocardiogram (though this may be related to underlying interstitial lung disease) Lower extremity Doppler performed in the ER is without any evidence of DVT. COVID testing negative x2 #3 diabetes mellitus, Continue high-dose sliding scale + levemir 15 U bid #4 hypotension, resolved, off Levophed #5 NSTEMI: Likely related to right heart strain, acute hypoxic respiratory failure, last troponin I 140 trending down, no chest pain, EKG shows T wave inversions in anterior chest leads, continue aspirin and statin #6 history of COPD and interstitial lung disease #7 acute kidney injury, likely as a result of sepsis Dvt ppx: lovenox DNR/DNI Attestations Medical Necessity Statement*: Patient requires continued hospitalization to acute respiratory failure Coding Level of Care Code Acute Foil Stamp Operator for g Fwd Diagnoses Sepsis with acute hypoxic respiratory failure A41.9; R65.21; J96.01 Sepsis type: sepsis due to unspecified organism Severe sepsis shock status: with septic shock Septic shock A41.9; R65.21 Hypertension I10 Hypertension type: essential hypertension DM type 2 (diabetes mellitus, type 2) E11.9 Diabetes mellitus counter intelligence insulin use: without counter intelligence use Diabetes mellitus complication status: without complication Pulmonary fibrosis J84.10 COPD (chronic obstructive pulmonary disease) J44.9 COPD type: unspecified COPD Right ventricular dysfunction I51.9 MILENA (acute kidney injury) N17.9 NSTEMI (non-ST elevated myocardial infarction) I21.4
--- NOTE | 2019-08-10 15:16 | PC.NURSE ---
IV Morphine first dose given at 0930 this am. Medication was not scanned. Spoke with Super User Karen RN she states she does not know how to fix that. Also spoke with Ismael in pharmacy and he did not know how to add this medication in either.
--- NOTE | 2019-08-10 15:18 | PC.OT ---
OT NOTE: Pt requested hold today. Will attempt tomorrow as able.
[2019-08-10 16:39] LABS: Glucose Point of Care 192 mg/dL (70-110)
[2019-08-10 21:50] LABS: Glucose Point of Care 192 mg/dL (70-110)
[2019-08-11] VITALS (41 sets, daily range): BP systolic 104–143; BP diastolic 69–88; PULSE 75–112; RESP 9–41; TEMP 36.3–37.3; O2SAT 74–93
[2019-08-11] MEDS: morphine 4 mg/mL SDV 1 mL IVP ×3 (00:13→07:23)
--- NOTE | 2019-08-11 01:40 | PC.NURSE ---
patient is resting comfortably at this time morphine given for air hunger and patient responded well. patient also stated that he may be going home tomorrow , on hospice
[2019-08-11] MEDS: ipratropium-albuterol 3 mL Neb INHALATION ×6 (03:45→23:31)
[2019-08-11] MEDS: pantoprazole DR 40 mg Tablet PO ×2 (04:03→17:30)
[2019-08-11 04:43] LABS: Basophils # 0.1 10^3/uL (0.0-0.1); Basophils % 0.2 %; Hematocrit 52.8 % (42.0-52.0); Hemoglobin 16.8 g/dL (11.7-16.6); Lymphocytes # 0.8 10^3/uL (0.8-4.8); Lymphocytes % 2.7 %; Mean Corpuscular HGB Conc 31.8 g/dL (30.0-36.0); Mean Corpuscular Hemoglobin 30.1 pg (28.0-34.0); Mean Corpuscular Volume 94.6 fL (80-94); Mean Platelet Volume 11.4 fL (7.4-10.4); Monocytes # 1.2 10^3/uL (0.2-0.9); Monocytes % 4.1 %; Neutrophils # 26.6 10^3/uL (1.8-7.7); Neutrophils % 92.5 %; Nucleated Red Blood Cells % 0 %; Platelet Count 176 10^3/cmm (130-400); Red Blood Count 5.58 10^6/uL (4.1-5.3); Red Cell Distribution Width 14.1 % (12.1-15.1); White Blood Count 28.7 10^3/uL (4.0-10.0)
[2019-08-11 05:14] LABS: Alanine Aminotransferase 14 U/L (0-41); Albumin Level 3.3 g/dL (3.5-5.2); Alkaline Phosphatase 101 IU/L (40-130); Anion Gap 15.6 (5-19); Aspartate Amino Transferase 14 U/L (0-40); Blood Urea Nitrogen 40 mg/dL (8-23); Calcium 9.5 mg/dL (8.5-10.5); Carbon Dioxide 31 mmol/L (22-29); Chloride 99 mmol/L (98-107); Globulin 3.2 g/dL (1.3-4.6); Glomerular Filtration Rate 96.4 mL/min (90-130); Glucose 99 mg/dL (65-115); Magnesium 2.5 mg/dL (1.7-2.3); Osmolality Calculated 290 mOsm/kg (285-295); Potassium 4.6 mmol/L (3.5-5.1); Sodium 141 mmol/L (136-145); Total Bilirubin 0.7 mg/dL (0.15-1.2); Total Protein 6.5 g/dL (6.6-8.7)
[2019-08-11 05:22] LABS: Procalcitonin 0.06 ng/mL (0-0.5)
[2019-08-11] MEDS: ALPRAZolam 0.25 mg Tablet PO ×2 (07:01→20:47)
[2019-08-11 07:20] LABS: Glucose Point of Care 185 mg/dL (70-110)
[2019-08-11] MEDS: FUROsemide 40 mg Tablet PO (07:23)
[2019-08-11] MEDS: enoxaparin 40 mg/0.4 mL Syringe SUBCUT (07:23)
[2019-08-11] MEDS: budesonide 0.5 mg/2 mL Neb INHALATION ×2 (08:08→21:29)
[2019-08-11] MEDS: polyethylene glycol 3350 Pkt 17 gm PO (08:55)
[2019-08-11] MEDS: piperacillin-tazobactam 3.375 GM in sodium chloride 0.9% (plus) 50 ML IV ×2 (08:56→17:31)
[2019-08-11] MEDS: benzonatate 100 mg Capsule PO ×3 (08:57→20:47)
[2019-08-11] MEDS: losartan 50 mg Tablet PO (08:57)
[2019-08-11] MEDS: potassium chloride ER 10 mEq Tablet 40 MEQ PO (08:57)
[2019-08-11] MEDS: metoprolol tartrate 25 mg Tablet PO ×2 (08:57→17:29)
[2019-08-11] MEDS: atorvastatin 40 mg Tablet PO (08:57)
[2019-08-11] MEDS: gabapentin 300 mg Capsule PO ×3 (08:57→20:47)
[2019-08-11] MEDS: dilTIAZem ER (24HR) 240 mg Capsule PO (08:58)
[2019-08-11] MEDS: azithromycin 500 MG in sodium chloride 0.9% 250 ML 250 MG IV (08:59)
[2019-08-11 09:00] LABS: Erythrocyte Sedimentation Rate 3 mm/hr (0-10)
[2019-08-11 09:13] LABS: Procalcitonin 0.07 ng/mL (0-0.5)
[2019-08-11 09:23] LABS: C Reactive Protein 1.4 mg/L (0.0-4.9)
[2019-08-11 11:10] LABS: Glucose Point of Care 218 mg/dL (70-110)
[2019-08-11] MEDS: morphine 4 mg/mL SDV 1 mL 2 MG IVP ×5 (11:37→23:11)
--- NOTE | 2019-08-11 12:09 | P.PN_ITS ---
Subjective Subjective: Interval history: Overnight patient had low-grade temperature is 99.1, has complaints of cough, no chills, has intermittent episodes of shortness of breath, yesterday afternoon when the nurses were getting up him from the bathroom, he had a significant episode of respiratory distress, requiring morphine and Ativan, was able to recover, but states that he was able to get to a chair yesterday afternoon, does have significant shortness of breath with minimal exertion. Patient's white blood cell count is up to 28,700, and worried about a set of secondary bacterial infection and or possible fungal infection Vitals/I&O/Wt Last Vital Signs Temp 99.1 F 08/11/19 05:38 Pulse 92 08/11/19 11:15 Resp 26 H 08/11/19 11:15 BP 104/76 08/11/19 10:00 Pulse Ox 87 L 08/11/19 11:15 08/10/19 08/11/19 08/11/19 22:59 06:59 14:59 Intake Total 120 / 680 240 / 920 320 / 320 Output Total 200 / 400 1050 / 1450 400 / 400 Balance -80 / 280 -810 / -530 -80 / -80 Physical Exam Const: COMMON NORMALS: no acute distress and patient oriented x3 OTHER: In mild distress HENMT: COMMON NORMALS: normocephalic HEAD & SCALP: normocephalic Neck/C-Spine: COMMON NORMALS: no JVD Resp: COMMON NORMALS: normal respiratory effort EFFORT & INSPECTION: Yes tachypneic and Yes uses accessory muscles AUSCULTATION: breath sounds absent Cardio: COMMON NORMALS: no JVD, regular rhythm, S1 normal heart sound present and S2 normal heart sound present RATE: tachycardic RHYTHM: regular rhythm HEART SOUNDS: S1 normal heart sound present and S2 normal heart sound present GI: COMMON NORMALS: Normal to inspection, nondistended, normoactive bowel sounds present, Soft to palpation, non-tender, No hepatosplenomegaly present, no masses and no bruits PALPATION: Yes Soft to palpation and Yes No hepatosplenomegaly present Extremity: COMMON NORMALS: capillary refill normal, no clubbing, cyanosis or edema, no calf tenderness and no pedal edema Neuro: COMMON NORMALS: patient oriented x3 Psych: COMMON NORMALS: mental status grossly normal Urinary Catheter Management^: Casey: Cath Placed During This Visit: yes Reason for Continuing Indwelling Catheter: Accurate Measurement of Urinary Output in Critically Ill Patients Urinary Catheter Date of Insertion: 07/24/19 Urinary Catheter Time of Insertion: 18:22 Data : 08/11/19 04:20 08/11/19 04:20 Micro: Microbiology 08/11/19 08:03 Blood Culture - Preliminary Blood SPECIMEN COLLECTED 08/11/19 08:08 Blood Culture - Preliminary Blood SPECIMEN COLLECTED A&P Assessment and plan (1) Sepsis with acute hypoxic respiratory failure: Status: Acute Qualifiers: Sepsis type: sepsis due to unspecified organism Severe sepsis shock status: with septic shock Qualified Code(s): A41.9 - Sepsis, unspecified organism; R65.21 - Severe sepsis with septic shock; J96.01 - Acute respiratory failure with hypoxia (2) Septic shock: Status: Acute (3) Hypertension: Status: Acute Qualifiers: Hypertension type: essential hypertension Qualified Code(s): I10 - Essential (primary) hypertension (4) DM type 2 (diabetes mellitus, type 2): Status: Acute Qualifiers: Diabetes 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 insulin use: without custodial use Diabetes mellitus complication status: without complication Qualified Code(s): E11.9 - Type 2 diabetes mellitus without complications (5) Pulmonary fibrosis: Status: Acute (6) COPD (chronic obstructive pulmonary disease): Status: Acute Qualifiers: COPD type: unspecified COPD Qualified Code(s): J44.9 - Chronic o bstructive pulmonary disease, unspecified (7) Right ventricular dysfunction: Status: Acute (8) MILENA (acute kidney injury): Status: Acute (9) NSTEMI (non-ST elevated myocardial infarction): Status: Acute Additional A&P Information #1 acute hypoxic respiratory failure secondary to idiopathic pulmonary fibrosis, exacerbation of idiopathic pulmonary fibrosis -CT scan shows severe worsening of interstitial pulmonary fibrosis, severe honeycombing, new bilateral groundglass opacities that all indicate severe underlying interstitial pulmonary fibrosis, with acute exacerbation. Overall progressive since CT in 2017. - increase steroids to 80mg iv q8h yesterday however without any significant changes in his condition. In fact he appears to be having worsening respiratory status. appreciate pulmonary recommendations, patient's condition is terminal, has a high mortality rate in the next few weeks to month, and likely patient would not have any meaningful recovery if he were to be intubated, likely would not ever come off ventilator. -per discussin between Dr. rico and [facility], patient's is not a candidate for double lung transplant, nor is he a candidate for tyrosine kinase inhibitors, or experimental treatments, and they have rejected the transfer as there is nothing else they can do for him at this time -Patient continues to be on hi Flow NC -Patient reiterates multiple times that he does eventually want to go home in spite of understanding extremely poor prognosis. He has declined hospice or comfort measures in the past, however will have a discussion with him again regarding these. He did come to terms with this condition and made himself DNR/DNI yesterday. Given his worsening clinical status we will additionally discuss comfort measures with him should the need arise. I had an extensive discussion with his family, son MARGO yesterday as well regarding this. His family is in agreement for DNR/DNI and comfort measures, however we have held off until now in accordance with patient's wishes as he wants to continue with the current line of treatment. - Unable to replicate HFNC at home, therefore looking for transfer to LTAC facility as high amounts of oxygen can only be given in hospitalized care, insurance has declined LTAC twice, working on third attempt, considering swing bed -Broad-spectrum antibiotics including zosyn, zyvox/vanc/azithro between 07/23- 08/02/19 to cover for possible HCAP incl MRSA PNA. Completed adequate course. Serial procalcitonin have been negative. Given worsening of respiratory status, chest x-ray was repeated yesterday which did not show any evidence of new developing infiltrates. It was consistent with known worse interstitial lung disease. -Patient's oxygen requirements have increased to 98% 40 L -Continue Solu-Medrol 80 every 8 - Continue budesonide and duoneb inhalation -This morning patient has mild retractions, tachypnea, episodes of respiratory distress yesterday afternoon, low-grade temperatures, significant leukocytosis of 20.7, will start broad-spectrum antibiotics vancomycin, Zosyn, azithromycin, get blood cultures, sputum cultures, repeat CT of the chest -Again reiterated to patient that his condition is terminal, unfortunately his prognosis is poor, options are limited -I had a re-discussion about patient's goals of care options I presented to the patient was: 1.) Continuing medical interventions as above, re-appeal his insurance denial of LTAC, which could take months, might require court appearance, he would likely have a prolonged hospital stay, would likely succumb to his disease in the hospital 2.) Reconsider transfer to tertiary center for lung transplant, he will need to have an accepting green party, accepting physician, he will need to be transplanted on the ventilator, likely remain on the ventilator, carry significant morbidity and mortality on the ventilator, will likely require ecmo on transport and at tertiary center which would carry morbidity and mortality, all this would not also guarantee a lung transplant nor a successful one. All in all this option has the highest immediate risk of high morbidity and mortality rate, but would offer him the option of longevity of life. 3.) Hospice, hospice at home, we could mimic high flow as best as we can, but he could be at home, and be comfortable, this option emphasizes the quality of life Patient will think these options over's, discuss with family members, he wanted me to talk to his son # Severe right ventricular dysfunction with pulmonary hypertension: -Patient's echocardiogram shows severe right heart strain, severely decreased right ventricular systolic function,, right atrial pressure 20 mmHg, last troponin is 140 Secondary to idiopathic pulmonary fibrosis, Ddiuresing well but increasing 02 requirements. Continue Lasix, titrating based on urine output and renal function. 2. Septic shock, now resolved D/c antibiotics, adequate course since 07/23-08/01 persisting leukocytosis more likely to be marginationf rom steroids. No fever, s/p adequate course of abx, procalcitonin negative several times incl on 08/05. #3 acute hypoxic respiratory failure Echo evidence of right heart strain on echocardiogram (though this may be related to underlying interstitial lung disease) Lower extremity Doppler performed in the ER is without any evidence of DVT. COVID testing negative x2 #3 diabetes mellitus, Continue high-dose sliding scale + levemir 15 U bid #4 hypotension, resolved, off Levophed #5 NSTEMI: Likely related to right heart strain, acute hypoxic respiratory failure, last troponin I 140 trending down, no chest pain, EKG shows T wave inversions in anterior chest leads, continue aspirin and statin #6 history of COPD and interstitial lung disease #7 acute kidney injury, likely as a result of sepsis Dvt ppx: lovenox DNR/DNI Attestations Medical Necessity Statement*: Patient requires continued hospitalization for acute respiratory failure secondary to idiopathic pulmonary fibrosis Coding Level of Care Code Acute Investment Director for [facility] Fwd Diagnoses Sepsis with acute hypoxic respiratory failure A41.9; R65.21; J96.01 Sepsis type: sepsis due to unspecified organism Severe sepsis shock status: with septic shock Septic shock A41.9; R65.21 Hypertension I10 Hypertension type: essential hypertension DM type 2 (diabetes mellitus, type 2) E11.9 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
[2019-08-11] MEDS: nystatin 100,000 unit/mL UDC 5 mL 400000 UNIT PO ×3 (14:01→20:48)
--- NOTE | 2019-08-11 14:19 | PC.NURSE ---
called CT to see if we could get in for his CT. No answer at this time. Will call back.
[2019-08-11 17:12] LABS: Glucose Point of Care 185 mg/dL (70-110)
--- NOTE | 2019-08-11 18:38 | PC.NURSE ---
pt bowel sounds are getting hypo, belly some distended and he states that he has not passed any gas in the last day. Dr Cifuentes notified, awaiting call back.
--- NOTE | 2019-08-11 19:14 | XRR_ITS ---
PROCEDURE INFORMATION: Exam: XR Abdomen, 1 View Exam date and time: 08/11/2019 8:20 PM Age: 69 years old Clinical indication: Bloating; Additional info: Bloating and hypobowel sounds TECHNIQUE: Imaging protocol: XR of the abdomen. Views: Frontal supine view of the abdomen. 1 View. COMPARISON: No relevant prior studies available. FINDINGS: Gastrointestinal tract: Extensive colonic fecal debris and partial colonic gas expansion. Moderate rectal fecal expansion. Vasculature: Central abdominal vascular calcification. Bones/joints: Osteopenia. Degenerative change of the spine. Appearance of increased bone density at the pedicles bilaterally at L2 and L4 and possibly L1 vertebrae. XR/XR KUB portable [id number] IMPRESSION: 1. Prominent colonic fecal debris and colonic gas. 2. Equivocal suggestion of increased bone density or sclerosis at L2, L4 and possibly L1. Correlate for any history of neoplasm to exclude abnormal areas of sclerosis.
[2019-08-11 20:44] LABS: Glucose Point of Care 291 mg/dL (70-110)
[2019-08-12] VITALS (38 sets, daily range): BP systolic 98–142; BP diastolic 64–85; PULSE 58–105; RESP 9–33; TEMP 35.9–36.8; O2SAT 82–95
--- NOTE | 2019-08-12 00:32 | PC.NURSE ---
IV ACCESS IV access lost, IV had migrated and leaking around catheter. Multiple nurses attempted to start peripheral IV with no success. ER staff notified to attempt IV by ultrasound. Physician contacted.
[2019-08-12] MEDS: morphine 4 mg/mL SDV 1 mL 2 MG IVP ×8 (01:43→23:39)
--- NOTE | 2019-08-12 01:56 | PC.NURSE ---
Vancomycin Vancomycin administration delayed due to unable to obtain IV access. Physician aware. 22 gauge started in right hand by ER nurse Yovany. Vancomycin infusing at 100ml/hr for small gauge IV in hand. Will continue to monitor.
[2019-08-12] MEDS: piperacillin-tazobactam 3.375 GM in sodium chloride 0.9% (plus) 50 ML IV ×3 (03:41→18:09)
--- NOTE | 2019-08-12 03:42 | PC.NURSE ---
Zosyn Administered behind schedule due to IV access delay and vancomycin infusion.
[2019-08-12] MEDS: ipratropium-albuterol 3 mL Neb INHALATION ×6 (04:12→23:48)
--- NOTE | 2019-08-12 06:55 | PC.NURSE ---
report received from Aleah Kan,. Pt struggles to breath, on high flow at 100% and he still has O2 sats in the low 80's. Just shifting around in the bed he dropped into the 70's. He is suppose to get a prone Ct of the chest today. Blood sugars have been elevated, he gets short and long acting insulin. His Iv is only a 22 gauge, it took 5 nurses and several sticks to get it.
[2019-08-12] MEDS: pantoprazole DR 40 mg Tablet PO ×2 (06:59→18:13)
--- NOTE | 2019-08-12 07:00 | XRR_ITS ---
PROCEDURE INFORMATION: Exam: XR Chest, 1 View Exam date and time: 08/12/2019 4:32 AM Age: 69 years old Clinical indication: Shortness of breath; Additional info: SOB f/u TECHNIQUE: Imaging protocol: XR of the chest Views: 1 view. COMPARISON: CR XR chest 1V portable [id number] 08/09/2019 4:24 AM FINDINGS: Lungs: Hyper lucency at the left lung apex most likely reflects persistent bulla formation. Rather extensive bilateral diffuse interstitial thickening and acute or chronic infiltrates persist. Slightly variable more focal asymmetric rounded configuration left perihilar upper lobe. Pleural space: Unremarkable. No pleural effusion. No pneumothorax. Heart/Mediastinum: Cardiomegaly. Mild accentuation of the right anam. Vasculature: Calcified thoracic aorta. Bones/joints: Unremarkable. XR/XR chest 1V portable [id number] IMPRESSION: Persistent extensive diffuse underlying interstitial process which could reflect chronic changes, partial involvement of acute atypical pneumonia and less likely interstitial vascular edema. Mild fullness of the right anam. Correlate to recent CT angio of the chest.
[2019-08-12 07:06] LABS: Basophils % 0.2 %; Hematocrit 49.2 % (42.0-52.0); Hemoglobin 15.6 g/dL (11.7-16.6); Lymphocytes # 0.7 10^3/uL (0.8-4.8); Lymphocytes % 3.3 %; Mean Corpuscular HGB Conc 31.7 g/dL (30.0-36.0); Mean Corpuscular Hemoglobin 29.7 pg (28.0-34.0); Mean Corpuscular Volume 93.7 fL (80-94); Mean Platelet Volume 12.5 fL (7.4-10.4); Monocytes # 1.2 10^3/uL (0.2-0.9); Monocytes % 5.2 %; Neutrophils # 20.4 10^3/uL (1.8-7.7); Neutrophils % 90.8 %; Nucleated Red Blood Cells % 0 %; Platelet Count 126 10^3/cmm (130-400); Red Blood Count 5.25 10^6/uL (4.1-5.3); Red Cell Distribution Width 14.2 % (12.1-15.1); White Blood Count 22.5 10^3/uL (4.0-10.0)
[2019-08-12] MEDS: budesonide 0.5 mg/2 mL Neb INHALATION ×2 (07:13→19:46)
[2019-08-12 07:18] LABS: INR 0.98 (0.8-1.2)
[2019-08-12 07:30] LABS: Alanine Aminotransferase 12 U/L (0-41); Albumin Level 2.9 g/dL (3.5-5.2); Alkaline Phosphatase 86 IU/L (40-130); Anion Gap 11.7 (5-19); Aspartate Amino Transferase 12 U/L (0-40); Blood Urea Nitrogen 38 mg/dL (8-23); Calcium 8.8 mg/dL (8.5-10.5); Carbon Dioxide 29 mmol/L (22-29); Chloride 100 mmol/L (98-107); Globulin 2.6 g/dL (1.3-4.6); Glomerular Filtration Rate 96.4 mL/min (90-130); Glucose 233 mg/dL (65-115); Magnesium 2.2 mg/dL (1.7-2.3); Osmolality Calculated 287 mOsm/kg (285-295); Phosphorus 3.5 mg/dL (2.5-4.5); Potassium 4.7 mmol/L (3.5-5.1); Sodium 136 mmol/L (136-145); Total Bilirubin 0.6 mg/dL (0.15-1.2); Total Protein 5.5 g/dL (6.6-8.7)
[2019-08-12 07:38] LABS: Glucose Point of Care 215 mg/dL (70-110)
[2019-08-12 07:39] LABS: Procalcitonin 0.06 ng/mL (0-0.5)
[2019-08-12] MEDS: ALPRAZolam 0.25 mg Tablet PO ×2 (08:13→20:56)
[2019-08-12] MEDS: gabapentin 300 mg Capsule PO ×3 (08:13→20:56)
[2019-08-12] MEDS: FUROsemide 40 mg Tablet PO (08:13)
[2019-08-12] MEDS: polyethylene glycol 3350 Pkt 17 gm PO (08:14)
[2019-08-12] MEDS: dilTIAZem ER (24HR) 240 mg Capsule PO (08:16)
[2019-08-12] MEDS: benzonatate 100 mg Capsule PO ×3 (08:16→20:56)
[2019-08-12] MEDS: potassium chloride ER 10 mEq Tablet 40 MEQ PO (08:16)
[2019-08-12] MEDS: metoprolol tartrate 25 mg Tablet PO ×2 (08:16→18:12)
[2019-08-12] MEDS: losartan 50 mg Tablet PO (08:16)
[2019-08-12] MEDS: atorvastatin 40 mg Tablet PO (08:16)
[2019-08-12] MEDS: azithromycin 500 MG in sodium chloride 0.9% 250 ML 250 MG IV (08:17)
[2019-08-12] MEDS: nystatin 100,000 unit/mL UDC 5 mL 400000 UNIT PO ×4 (08:17→20:56)
[2019-08-12 08:41] LABS: C Reactive Protein 1.7 mg/L (0.0-4.9)
--- NOTE | 2019-08-12 09:00 | PC.NURSE ---
Dr Cifuentes notified of the IV situation and antibiotics might be late if some are need to run slower. Dr voiced he was aware.
[2019-08-12 09:24] LABS: Vancomycin Trough 15.3 ug/mL (10-15)
[2019-08-12] MEDS: enoxaparin 40 mg/0.4 mL Syringe SUBCUT (09:28)
--- NOTE | 2019-08-12 10:47 | PC.SOCIAL ---
IMM Update Pg 2 of IMM updated with patient and copy provided.
[2019-08-12 11:39] LABS: Glucose Point of Care 207 mg/dL (70-110)
--- NOTE | 2019-08-12 13:41 | PC.NURSE ---
IV SHOWING DOWNSTREAM OCCLUSION. UNABLE TO FLUSH. REDRESSED SITE AND NOTED KINK IN CATHETER . CURRENTLY WORKING WELL. LUNCH TRAKY REMOVED NOTING 50% EATEN. UOP OF 350 EMPTIED.
[2019-08-12 16:57] LABS: Glucose Point of Care 152 mg/dL (70-110)
--- NOTE | 2019-08-12 19:20 | PC.NURSE ---
Report given to Aleah Kan. the Iv has worked, ran vancomycin and azithromycin at 125ml/hr to protect site. It did get leaky and need to be redressed. He has required 4-5 doses of Iv Morphine for air hunger. He decided that he would go home on hospice Thursday. Hospice nurse has been here today. Pt seems adjusted to decision has been conveersing with family on phone about his hospice plans.
[2019-08-12 20:43] LABS: Glucose Point of Care 205 mg/dL (70-110)
[2019-08-13] VITALS (30 sets, daily range): BP systolic 94–132; BP diastolic 74–93; PULSE 71–103; RESP 12–35; TEMP 37.2; O2SAT 84–93
[2019-08-13] MEDS: piperacillin-tazobactam 3.375 GM in sodium chloride 0.9% (plus) 50 ML IV ×5 (02:30→20:34)
[2019-08-13] MEDS: morphine 4 mg/mL SDV 1 mL 2 MG IVP ×7 (02:30→23:53)
[2019-08-13] MEDS: ipratropium-albuterol 3 mL Neb INHALATION ×5 (03:34→20:51)
[2019-08-13 05:38] LABS: Basophils % 0.1 %; Hematocrit 51.9 % (42.0-52.0); Hemoglobin 16.3 g/dL (11.7-16.6); Lymphocytes # 1.3 10^3/uL (0.8-4.8); Lymphocytes % 6.1 %; Mean Corpuscular HGB Conc 31.4 g/dL (30.0-36.0); Mean Corpuscular Hemoglobin 29.8 pg (28.0-34.0); Mean Corpuscular Volume 94.9 fL (80-94); Mean Platelet Volume 13.2 fL (7.4-10.4); Monocytes # 1.1 10^3/uL (0.2-0.9); Neutrophils # 18.7 10^3/uL (1.8-7.7); Neutrophils % 88.3 %; Nucleated Red Blood Cells % 0 %; Red Blood Count 5.47 10^6/uL (4.1-5.3); Red Cell Distribution Width 14.2 % (12.1-15.1); White Blood Count 21.2 10^3/uL (4.0-10.0)
[2019-08-13 06:05] LABS: Alanine Aminotransferase 14 U/L (0-41); Albumin Level 3.1 g/dL (3.5-5.2); Alkaline Phosphatase 101 IU/L (40-130); Anion Gap 16.3 (5-19); Aspartate Amino Transferase 15 U/L (0-40); Blood Urea Nitrogen 33 mg/dL (8-23); C Reactive Protein 3.3 mg/L (0.0-4.9); Carbon Dioxide 29 mmol/L (22-29); Chloride 100 mmol/L (98-107); Globulin 2.9 g/dL (1.3-4.6); Glomerular Filtration Rate 96.4 mL/min (90-130); Glucose 197 mg/dL (65-115); Magnesium 2.2 mg/dL (1.7-2.3); Osmolality Calculated 295 mOsm/kg (285-295); Phosphorus 3.2 mg/dL (2.5-4.5); Potassium 4.3 mmol/L (3.5-5.1); Sodium 141 mmol/L (136-145); Total Bilirubin 0.8 mg/dL (0.15-1.2)
[2019-08-13 06:13] LABS: INR 0.95 (0.8-1.2)
[2019-08-13 06:15] LABS: Procalcitonin 0.08 ng/mL (0-0.5)
[2019-08-13 06:24] LABS: Platelet Count 92 10^3/cmm (130-400)
[2019-08-13 06:25] LABS: Slide Review Slide Review Perform
[2019-08-13] MEDS: pantoprazole DR 40 mg Tablet PO ×2 (06:30→17:26)
[2019-08-13] MEDS: acetaminophen 325 mg Tablet 650 MG PO ×2 (06:33→16:31)
--- NOTE | 2019-08-13 07:23 | PM.PN ---
Subjective Subjective: Interval history: This note is from 08/12/2019: -Last night no issues, no fevers, no chills, this morning he does have mild retractions, nasal flaring, his oxygen saturations do's drop into the 70s when speaking, he gets real short of breath with minimal exertion such as getting to the side of the bed, -After discussion with patient, he has agreed to proceed with hospice, advised that we can try to mimic high flow, but it will not be exact, he states that he just wants to be at home, discussed risk and benefits, voiced understanding, all questions answered -I also discussed the case with patient's son, discussed patient's plan of directives of hospice, all questions answered, voiced understanding Medications: Reviewed: Yes Vitals/I&O/Wt Last Vital Signs Temp 97.0 F L 08/12/19 22:00 Pulse 92 08/13/19 06:00 Resp 14 08/13/19 06:00 BP 108/87 08/13/19 06:00 Pulse Ox 87 L 08/13/19 06:00 08/12/19 08/13/19 08/13/19 22:59 06:59 14:59 Intake Total 1160 / 2560 240 / 2800 Output Total 750 / 1280 600 / 1880 Balance 410 / 1280 -360 / 920 Physical Exam Const: COMMON NORMALS: no acute distress and patient oriented x3 OTHER: In mild distress HENMT: COMMON NORMALS: normocephalic HEAD & SCALP: normocephalic Neck/C-Spine: COMMON NORMALS: no JVD Resp: COMMON NORMALS: normal respiratory effort and clear to auscultation bilaterally EFFORT & INSPECTION: Yes able to speak in complete sentences, Yes tachypneic, Yes respiratory distress (Mild) and Yes uses accessory muscles AUSCULTATION: clear to auscultation bilaterally Cardio: COMMON NORMALS: no JVD, regular rate, regular rhythm, S1 normal heart sound present and S2 normal heart sound present RATE: regular rate RHYTHM: regular rhythm HEART SOUNDS: S1 normal heart sound present and S2 normal heart sound present GI: COMMON NORMALS: Normal to inspection, nondistended, normoactive bowel sounds present, Soft to palpation, non-tender, No hepatosplenomegaly present, no masses and no bruits PALPATION: Yes Soft to palpation and Yes No hepatosplenomegaly present Extremity: COMMON NORMALS: capillary refill normal, no clubbing, cyanosis or edema, no calf tenderness and no pedal edema Neuro: COMMON NORMALS: patient oriented x3 Psych: COMMON NORMALS: mental status grossly normal Urinary Catheter Management^: Casey: Cath Placed During This Visit: yes Reason for Continuing Indwelling Catheter: Accurate Measurement of Urinary Output in Critically Ill Patients Urinary Catheter Date of Insertion: 07/24/19 Urinary Catheter Time of Insertion: 18:22 Data : 08/13/19 04:49 08/13/19 04:49 Micro: Microbiology 08/11/19 08:45 Urine Culture - Preliminary Urine,Clean Catch 08/11/19 08:03 Blood Culture - Preliminary Blood NEGATIVE TO DATE 08/11/19 08:08 Blood Culture - Preliminary Blood NEGATIVE TO DATE A&P Assessment and plan (1) Sepsis with acute hypoxic respiratory failure: Status: Acute Qualifiers: Sepsis type: sepsis due to unspecified organism Severe sepsis shock status: with septic shock Qualified Code(s): A41.9 - Sepsis, unspecified organism; R65.21 - Severe sepsis with septic shock; J96.01 - Acute respiratory failure with hypoxia (2) Septic shock: Status: Acute (3) Hypertension: Status: Acute Qualifiers: Hypertension type: essential hypertension Qualified Code(s): I10 - Essential (primary) hypertension (4) DM type 2 (diabetes mellitus, type 2): Status: Acute Qualifiers: Diabetes mellitus [facility] insulin use: without [facility] use Diabetes mellitus complication status: without complication Qualified Code(s): E11.9 - Type 2 diabetes mellitus without complications (5) Pulmonary fibrosis: Status: Acute (6) COPD (chronic obstructive pulmonary disease): Status: Acute Qualifiers: COPD type: unspecified COPD Qualified Code(s): J44.9 - Chronic obstructive pulmonary disease, unspecified (7) Right ventricular dysfunction: Status: Acute (8) MILENA (acute kidney injury): Status: Acute (9) NSTEMI (non-ST elevated myocardial infarction): Status: Acute Additional A&P Information #1 acute hypoxic respiratory failure secondary to idiopathic pulmonary fibrosis, exacerbation of idiopathic pulmonary fibrosis -CT scan shows severe worsening of interstitial pulmonary fibrosis, severe honeycombing, new bilateral groundglass opacities that all indicate severe underlying interstitial pulmonary fibrosis, with acute exacerbation. Overall progressive since CT in 2017. - increase steroids to 80mg iv q8h yesterday however without any significant changes in his condition. In fact he appears to be having worsening respiratory status. appreciate pulmonary recommendations, patient's condition is terminal, has a high mortality rate in the next few weeks to month, and likely patient would not have any meaningful recovery if he were to be intubated, likely would not ever come off ventilator. -per discussin between Dr. rico and [facility], patient's is not a candidate for double lung transplant, nor is he a candidate for tyrosine kinase inhibitors, or experimental treatments, and they have rejected the transfer as there is nothing else they can do for him at this time -Patient continues to be on hi Flow NC -Patient reiterates multiple times that he does eventually want to go home in spite of understanding extremely poor prognosis. He has declined hospice or comfort measures in the past, however will have a discussion with him again regarding these. He did come to terms with this condition and made himself DNR/DNI yesterday. Given his worsening clinical status we will additionally discuss comfort measures with him should the need arise. I had an extensive discussion with his family, son MARGO yesterday as well regarding this. His family is in agreement for DNR/DNI and comfort measures, however we have held off until now in accordance with patient's wishes as he wants to continue with the current line of treatment. - Unable to replicate HFNC at home, therefore looking for transfer to LTAC facility as high amounts of oxygen can only be given in hospitalized care, insurance has declined LTAC twice, working on third attempt, considering swing bed -Broad-spectrum antibiotics including zosyn, zyvox/vanc/azithro between 07/23-08/02/19 to cover for possible HCAP incl MRSA PNA. Completed adequate course. Serial procalcitonin have been negative. -Patient's oxygen requirements have increased to 98% 40 L -Continue Solu-Medrol 80 every 8 - Continue budesonide and duoneb inhalation -This morning patient has mild retractions, tachypnea, episodes of respiratory distress yesterday afternoon, low-grade temperatures, significant leukocytosis of 22.5, on day 2 of broad-spectrum antibiotics vancomycin, Zosyn, azithromycin, follow blood cultures, sputum cultures, will not do repeat CT of the chest due to patient's delicate respiratory status -Again reiterated to patient that his condition is terminal, unfortunately his prognosis is poor, options are limited -I had a re-discussion about patient's goals of care options I presented to the patient was: 1.) Continuing medical interventions as above, re-appeal his insurance denial of LTAC, which could take months, might require court appearance, he would likely have a prolonged hospital stay, would likely succumb to his disease in the hospital 2.) Reconsider transfer to tertiary center for lung transplant, he will need to have an accepting democrat, accepting physician, he will need to be transplanted on the ventilator, likely remain on the ventilator, carry significant morbidity and mortality on the ventilator, will likely require ecmo on transport and at tertiary center which would carry morbidity and mortality, all this would not also guarantee a lung transplant nor a successful one. All in all this option has the highest immediate risk of high morbidity and mortality rate, but would offer him the option of longevity of life. 3.) Hospice, hospice at home, we could mimic high flow as best as we can, but he could be at home, and be comfortable, this option emphasizes the quality of life Patient will think these options over's, discuss with family members, he wanted me to talk to his son -After discussion today on 08/12/2019, patient agreed to home hospice, will try to mimic his high flow, but cannot be exact, discussed risks and benefits, voiced understanding, all questions answered, will have home hospice come by and see patient # Severe right ventricular dysfunction with pulmonary hypertension: -Patient's echocardiogram shows severe right heart strain, severely decreased right ventricular systolic function,, right atrial pressure 20 mmHg, last troponin is 140 Secondary to idiopathic pulmonary fibrosis, Ddiuresing well but increasing 02 requirements. Continue Lasix, titrating based on urine output and renal function. 2. Septic shock, now resolved D/c antibiotics, adequate course since 07/23-08/01 persisting leukocytosis more likely to be marginationf rom steroids. No fever, s/p adequate course of abx, procalcitonin negative several times incl on 08/05. #3 acute hypoxic respiratory failure Echo evidence of right heart strain on echocardiogram (though this may be related to underlying interstitial lung disease) Lower extremity Doppler performed in the ER is without any evidence of DVT. COVID testing negative x2 #3 diabetes mellitus, Continue high-dose sliding scale + levemir 15 U bid #4 hypotension, resolved, off Levophed #5 NSTEMI: Likely related to right heart strain, acute hypoxic respiratory failure, last troponin I 140 trending down, no chest pain, EKG shows T wave inversions in anterior chest leads, continue aspirin and statin #6 history of COPD and interstitial lung disease #7 acute kidney injury, likely as a result of sepsis Dvt ppx: lovenox DNR/DNI Attestations Medical Necessity Statement*: This note is from 08/12/2019, patient requires continued hospitalization for acute respiratory failure Coding Level of Care Code Acute Lead Javascript Engineer for [facility] Fwd Diagnoses Sepsis with acute hypoxic respiratory failure A41.9; R65.21; J96.01 Sepsis type: sepsis due to unspecified organism Severe sepsis shock status: with septic shock Septic shock A41.9; R65.21 Hypertension I10 Hypertension type: essential hypertension DM type 2 (diabetes mellitus, type 2) E11.9 Diabetes mellitus [facility] insulin use: without local intermodal truck driver use Diabetes mellitus complication status: without complication Pulmonary fibrosis J84.10 COPD (chronic obstructive pulmonary disease) J44.9 COPD type: unspecified COPD Right ventricular dysfunction I51.9 MILENA (acute kidney injury) N17.9 NSTEMI (non-ST elevated myocardial infarction) I21.4
[2019-08-13] MEDS: enoxaparin 40 mg/0.4 mL Syringe SUBCUT (07:28)
[2019-08-13] MEDS: FUROsemide 40 mg Tablet PO (07:28)
[2019-08-13] MEDS: ALPRAZolam 0.25 mg Tablet PO ×2 (07:42→20:31)
--- NOTE | 2019-08-13 07:52 | PC.NURSE ---
up in bed attempt to eat am brk at this time very dyspnic ms po given at this time and ativan . set up all am brk at this time
[2019-08-13] MEDS: budesonide 0.5 mg/2 mL Neb INHALATION ×2 (08:11→20:51)
[2019-08-13] MEDS: azithromycin 500 MG in sodium chloride 0.9% 250 ML 250 MG IV (09:15)
[2019-08-13] MEDS: polyethylene glycol 3350 Pkt 17 gm PO ×2 (09:18→09:28)
[2019-08-13] MEDS: atorvastatin 40 mg Tablet PO (09:19)
[2019-08-13] MEDS: losartan 50 mg Tablet PO (09:19)
[2019-08-13] MEDS: predniSONE 20 mg Tablet 40 MG PO (09:19)
[2019-08-13] MEDS: nystatin 100,000 unit/mL UDC 5 mL 400000 UNIT PO ×3 (09:22→20:30)
[2019-08-13] MEDS: metoprolol tartrate 25 mg Tablet PO ×2 (09:22→17:26)
[2019-08-13] MEDS: benzonatate 100 mg Capsule PO ×3 (09:22→20:31)
[2019-08-13] MEDS: dilTIAZem ER (24HR) 240 mg Capsule PO (09:22)
[2019-08-13] MEDS: potassium chloride ER 10 mEq Tablet 40 MEQ PO (09:23)
[2019-08-13] MEDS: gabapentin 300 mg Capsule PO ×3 (09:26→20:31)
--- NOTE | 2019-08-13 11:30 | PM.PN ---
Subjective Subjective: Interval history: This morning patient is in mild respiratory distress, showing intercostal retractions, nasal flaring, slight belly breathing, typically he says that his mornings are difficult, he got morphine to help with his air hunger which is helping a bit, no fevers, no chills, no nausea, no vomiting, I advised him that I spoke to his son about hospice, he was happy to hear this, he states that he will talk to his son and his daughter this morning, plan is for hospice on Thursday Medications: Reviewed: Yes Vitals/I&O/Wt Last Vital Signs Temp 97.0 F L 08/12/19 22:00 Pulse 84 08/13/19 11:17 Resp 20 H 08/13/19 11:06 BP 105/79 08/13/19 10:00 Pulse Ox 88 L 08/13/19 11:06 08/12/19 08/13/19 08/13/19 22:59 06:59 14:59 Intake Total 1160 / 2560 290 / 2850 500 / 500 Output Total 750 / 1280 600 / 1880 750 / 750 Balance 410 / 1280 -310 / 970 -250 / -250 Physical Exam Const: COMMON NORMALS: no acute distress and patient oriented x3 OTHER: In mild distress HENMT: COMMON NORMALS: normocephalic HEAD & SCALP: normocephalic Neck/C-Spine: COMMON NORMALS: no JVD Resp: COMMON NORMALS: normal respiratory effort EFFORT & INSPECTION: Yes tachypneic, Yes respiratory distress (mild), Yes uses accessory muscles and Yes paradoxical thoraco-abdominal movements AUSCULTATION: diminished lung sounds Cardio: COMMON NORMALS: no JVD, regular rate, regular rhythm, S1 normal heart sound present and S2 normal heart sound present RATE: regular rate RHYTHM: regular rhythm HEART SOUNDS: S1 normal heart sound present and S2 normal heart sound present GI: COMMON NORMALS: Normal to inspection, nondistended, normoactive bowel sounds present, Soft to palpation, non-tender, No hepatosplenomegaly present, no masses and no bruits PALPATION: Yes Soft to palpation and Yes No hepatosplenomegaly present Extremity: COMMON NORMALS: capillary refill normal, no clubbing, cyanosis or edema, no calf tenderness and no pedal edema Neuro: COMMON NORMALS: patient oriented x3 Psych: COMMON NORMALS: mental status grossly normal Urinary Catheter Management^: Casey: Cath Placed During This Visit: yes Reason for Continuing Indwelling Catheter: Accurate Measurement of Urinary Output in Critically Ill Patients Urinary Catheter Date of Insertion: 07/24/19 Urinary Catheter Time of Insertion: 18:22 Data : 08/13/19 04:49 08/13/19 04:49 Micro: Microbiology 08/11/19 08:45 Urine Culture - Final Urine,Clean Catch 08/13/19 02:13 Gram Stain - Final Sputum - Expectorated Sputum 08/11/19 08:03 Blood Culture - Preliminary Blood NEGATIVE TO DATE 08/11/19 08:08 Blood Culture - Preliminary Blood NEGATIVE TO DATE A&P Assessment and plan (1) Sepsis with acute hypoxic respiratory failure: Status: Acute Qualifiers: Sepsis type: sepsis due to unspecified organism Severe sepsis shock status: with septic shock Qualified Code(s): A41.9 - Sepsis, unspecified organism; R65.21 - Severe sepsis with septic shock; J96.01 - Acute respiratory failure with hypoxia (2) Septic shock: Status: Acute (3) Hypertension: Status: Acute Qualifiers: Hypertension type: essential hypertension Qualified Code(s): I10 - Essential (primary) hypertension (4) DM type 2 (diabetes mellitus, type 2): Status: Acute Qualifiers: Diabetes mellitus intermediate manager insulin use: without care home use Diabetes mellitus complication status: without complication Qualified Code(s): E11.9 - Type 2 diabetes mellitus without complications (5) Pulmonary fibrosis: Status: Acute (6) COPD (chronic obstructive pulmonary disease): Status: Acute Qualifiers: COPD type: unspecified COPD Qualified Code(s): J44.9 - Chronic obstructive pulmonary disease, unspecified (7) Right ventricular dysfunction: Status: Acute (8) MILENA (acute kidney injury): Status: Acute (9) NSTEMI (non-ST elevated myocardial infarction): Status: Acute Additional A&P Information #1 acute hypoxic respiratory failure secondary to idiopathic pulmonary fibrosis, exacerbation of idiopathic pulmonary fibrosis -CT scan shows severe worsening of interstitial pulmonary fibrosis, severe honeycombing, new bilateral groundglass opacities that all indicate severe underlying interstitial pulmonary fibrosis, with acute exacerbation. Overall progressive since CT in 2017. - increase steroids to 80mg iv q8h yesterday however without any significant changes in his condition. In fact he appears to be having worsening respiratory status. appreciate pulmonary recommendations, patient's condition is terminal, has a high mortality rate in the next few weeks to month, and likely patient would not have any meaningful recovery if he were to be intubated, likely would not ever come off ventilator. -per discussin between Dr. rico and [facility], patient's is not a candidate for double lung transplant, nor is he a candidate for tyrosine kinase inhibitors, or experimental treatments, and they have rejected the transfer as there is nothing else they can do for him at this time -Patient continues to be on hi Flow NC -Patient reiterates multiple times that he does eventually want to go home in spite of understanding extremely poor prognosis. He has declined hospice or comfort measures in the past, however will have a discussion with him again regarding these. He did come to terms with this condition and made himself DNR/DNI yesterday. Given his worsening clinical status we will additionally discuss comfort measures with him should the need arise. I had an extensive discussion with his family, son MARGO yesterday as well regarding this. His family is in agreement for DNR/DNI and comfort measures, however we have held off until now in accordance with patient's wishes as he wants to continue with the current line of treatment. - Unable to replicate HFNC at home, therefore looking for transfer to LTAC facility as high amounts of oxygen can only be given in hospitalized care, insurance has declined LTAC twice, working on third attempt, considering swing bed -Broad-spectrum antibiotics including zosyn, zyvox/vanc/azithro between 07/23-08/02/19 to cover for possible HCAP incl MRSA PNA. Completed adequate course. Serial procalcitonin have been negative. -Patient's oxygen requirements have increased to 98% 40 L -Continue Solu-Medrol 80 every 8 - Continue budesonide and duoneb inhalation -This morning patient has more significant respiratory distress, retractions, tachypnea, nasal flaring, oxygen saturation drop into the low 70s when speaking, episodes of respiratory distress yesterday afternoon, leukocytosis of 21.2, on day32 of broad-spectrum antibiotics vancomycin, Zosyn, azithromycin, follow blood cultures, sputum cultures, will not do repeat CT of the chest due to patient's delicate respiratory status -Again reiterated to patient that his condition is terminal, unfortunately his prognosis is poor, options are limited -I had a re-discussion about patient's goals of care options I presented to the patient was: 1.) Continuing medical interventions as above, re-appeal his insurance denial of LTAC, which could take months, might require court appearance, he would likely have a prolonged hospital stay, would likely succumb to his disease in the hospital 2.) Reconsider transfer to tertiary center for lung transplant, he will need to have an accepting libertarian, accepting physician, he will need to be transplanted on the ventilator, likely remain on the ventilator, carry significant morbidity and mortality on the ventilator, will likely require ecmo on transport and at tertiary center which would carry morbidity and mortality, all this would not also guarantee a lung transplant nor a successful one. All in all this option has the highest immediate risk of high morbidity and mortality rate, but would offer him the option of longevity of life. 3.) Hospice, hospice at home, we could mimic high flow as best as we can, but he could be at home, and be comfortable, this option emphasizes the quality of life Patient will think these options over's, discuss with family members, he wanted me to talk to his son -After discussion today on 08/12/2019, patient agreed to home hospice, will try to mimic his high flow, but cannot be exact, discussed risks and benefits, voiced understanding, all questions answered, will have home hospice come by and see patient # Severe right ventricular dysfunction with pulmonary hypertension: -Patient's echocardiogram shows severe right heart strain, severely decreased right ventricular systolic function,, right atrial pressure 20 mmHg, last troponin is 140 Secondary to idiopathic pulmonary fibrosis, Ddiuresing well but increasing 02 requirements. Continue Lasix, titrating based on urine output and renal function. 2. Septic shock, now resolved D/c antibiotics, adequate course since 07/23-08/01 persisting leukocytosis more likely to be marginationf rom steroids. No fever, s/p adequate course of abx, procalcitonin negative several times incl on 08/05. #3 acute hypoxic respiratory failure Echo evidence of right heart strain on echocardiogram (though this may be related to underlying interstitial lung disease) Lower extremity Doppler performed in the ER is without any evidence of DVT. COVID testing negative x2 #3 diabetes mellitus, Continue high-dose sliding scale + levemir 15 U bid #4 hypotension, resolved, off Levophed #5 NSTEMI: Likely related to right heart strain, acute hypoxic respiratory failure, last troponin I 140 trending down, no chest pain, EKG shows T wave inversions in anterior chest leads, continue aspirin and statin #6 history of COPD and interstitial lung disease #7 acute kidney injury, likely as a result of sepsis Dvt ppx: lovenox DNR/DNI Attestations Medical Necessity Statement*: Patient requires hospitalization for acute respiratory failure, proceeding to hospice, likely discharge on Thursday Coding Level of Care Code Acute Clinical Support Specialist for [facility] Fwd Diagnoses Sepsis with acute hypoxic respiratory failure A41.9; R65.21; J96.01 Sepsis type: sepsis due to unspecified organism Severe sepsis shock status: with septic shock Septic shock A41.9; R65.21 Hypertension I10 Hypertension type: essential hypertension DM type 2 (diabetes mellitus, type 2) E11.9 Diabetes mellitus intermediate manager insulin use: without intermediate manager use Diabetes mellitus complication status: without complication Pulmonary fibrosis J84.10 COPD (chronic obstructive pulmonary disease) J44.9 COPD type: unspecified COPD Right ventricular dysfunction I51.9 MILENA (acute kidney injury) N17.9 NSTEMI (non-ST elevated myocardial infarction) I21.4
--- NOTE | 2019-08-13 11:35 | PC.NURSE ---
multiple antibiotics scheduled at same time ... running late with several
[2019-08-13 12:55] LABS: Glucose Point of Care 195 mg/dL (70-110)
--- NOTE | 2019-08-13 14:19 | PC.NURSE ---
severe resp disress after talking to family morphine given at this time
[2019-08-13 17:21] LABS: Glucose Point of Care 217 mg/dL (70-110)
[2019-08-13 23:12] LABS: Glucose Point of Care 198 mg/dL (70-110)
[2019-08-14] VITALS (29 sets, daily range): BP systolic 95–131; BP diastolic 64–89; PULSE 84–127; RESP 14–39; TEMP 36.1–37.3; O2SAT 78–89
[2019-08-14] MEDS: ipratropium-albuterol 3 mL Neb INHALATION ×7 (00:39→23:47)
--- NOTE | 2019-08-14 01:46 | PC.NURSE ---
patient has been having episodes of severe air hunger this evening. stated he just feels weak and is hurting all over. resp rate has varied from 30-40, and has had grunting sounds at time.. morphine given twice so far this shift and has seemed to help with resp issue. patient has been able to rest for about an hour at a time.
[2019-08-14] MEDS: acetaminophen 325 mg Tablet 650 MG PO (03:20)
[2019-08-14] MEDS: piperacillin-tazobactam 3.375 GM in sodium chloride 0.9% (plus) 50 ML IV ×4 (03:21→20:29)
[2019-08-14 04:02] LABS: Basophils % 0.1 %; Eosinophils # 0.1 10^3/uL (0.0-0.8); Eosinophils % 0.5 %; Hematocrit 52.3 % (42.0-52.0); Hemoglobin 16.6 g/dL (11.7-16.6); Lymphocytes # 1.7 10^3/uL (0.8-4.8); Lymphocytes % 8.3 %; Mean Corpuscular HGB Conc 31.7 g/dL (30.0-36.0); Mean Corpuscular Hemoglobin 29.7 pg (28.0-34.0); Mean Corpuscular Volume 93.6 fL (80-94); Mean Platelet Volume 13.8 fL (7.4-10.4); Monocytes # 0.8 10^3/uL (0.2-0.9); Monocytes % 3.7 %; Neutrophils # 17.7 10^3/uL (1.8-7.7); Neutrophils % 86.9 %; Nucleated Red Blood Cells % 0 %; Platelet Count 79 10^3/cmm (130-400); Positive M 1; Red Blood Count 5.59 10^6/uL (4.1-5.3); White Blood Count 20.4 10^3/uL (4.0-10.0)
[2019-08-14] MEDS: morphine 4 mg/mL SDV 1 mL 2 MG IVP ×5 (04:06→23:51)
--- NOTE | 2019-08-14 04:19 | PC.NURSE ---
patient rathing in pain and short of breath. grunting resp . patient requested morphine injection. 2 mg morphine given ivp.
[2019-08-14 04:20] LABS: Alanine Aminotransferase 15 U/L (0-41); Albumin Level 2.9 g/dL (3.5-5.2); Alkaline Phosphatase 106 IU/L (40-130); Anion Gap 14.5 (5-19); Aspartate Amino Transferase 15 U/L (0-40); Blood Urea Nitrogen 30 mg/dL (8-23); C Reactive Protein 31.1 mg/L (0.0-4.9); Calcium 9.1 mg/dL (8.5-10.5); Carbon Dioxide 33 mmol/L (22-29); Chloride 96 mmol/L (98-107); Globulin 3.7 g/dL (1.3-4.6); Glomerular Filtration Rate 112.5 mL/min (90-130); Glucose 172 mg/dL (65-115); Magnesium 2.1 mg/dL (1.7-2.3); Osmolality Calculated 289 mOsm/kg (285-295); Phosphorus 2.7 mg/dL (2.5-4.5); Potassium 4.5 mmol/L (3.5-5.1); Sodium 139 mmol/L (136-145); Total Protein 6.6 g/dL (6.6-8.7)
[2019-08-14 04:55] LABS: INR 0.88 (0.8-1.2)
[2019-08-14 05:09] LABS: Slide Review Slide Review Perform
[2019-08-14 05:27] LABS: Procalcitonin 0.09 ng/mL (0-0.5)
[2019-08-14] MEDS: pantoprazole DR 40 mg Tablet PO ×2 (05:49→17:12)
[2019-08-14 07:43] LABS: Glucose Point of Care 108 mg/dL (70-110)
[2019-08-14] MEDS: potassium chloride ER 10 mEq Tablet 40 MEQ PO (08:16)
[2019-08-14] MEDS: losartan 50 mg Tablet PO (08:16)
[2019-08-14] MEDS: FUROsemide 40 mg Tablet PO ×2 (08:17→15:36)
[2019-08-14] MEDS: dilTIAZem ER (24HR) 240 mg Capsule PO (08:17)
[2019-08-14] MEDS: benzonatate 100 mg Capsule PO ×3 (08:17→20:29)
[2019-08-14] MEDS: metoprolol tartrate 25 mg Tablet PO ×2 (08:17→17:11)
[2019-08-14] MEDS: predniSONE 20 mg Tablet 40 MG PO (08:17)
[2019-08-14] MEDS: nystatin 100,000 unit/mL UDC 5 mL 400000 UNIT PO ×2 (08:17→20:29)
[2019-08-14] MEDS: gabapentin 300 mg Capsule PO ×3 (08:18→20:28)
[2019-08-14] MEDS: atorvastatin 40 mg Tablet PO (08:18)
[2019-08-14] MEDS: ALPRAZolam 0.25 mg Tablet PO (08:23)
[2019-08-14] MEDS: budesonide 0.5 mg/2 mL Neb INHALATION ×2 (08:23→20:35)
--- NOTE | 2019-08-14 08:36 | PC.NURSE ---
extreme short of breath this am unable to eat sat down to 78 up in bed ms given and xarobertx making arrangment for son and daughter to visit this pm ovaerall status worse
[2019-08-14] MEDS: azithromycin 500 MG in sodium chloride 0.9% 250 ML 250 MG IV (08:46)
--- NOTE | 2019-08-14 10:50 | PC.NURSE ---
resting at this time after sedation talked with son and they will be here to see at 300 pm .
[2019-08-14 11:08] LABS: Glucose Point of Care 141 mg/dL (70-110)
--- NOTE | 2019-08-14 11:23 | PM.PN ---
Subjective Subjective: Interval history: This morning patient is much more tachypneic, tachycardic, having moderate respiratory distress, intercostal retractions, nasal flaring, oxygen saturations dropped into the low 70s during conversation, seems like his condition is progressively getting worse, likely close to terminal. Morphine for air hunger, dose has increased to 4 mg every 2 hours, but has been minimally helping this morning. The plan is for home hospice tomorrow. I advised patient if he wanted family members at bedside, he wanted to see his daughter and son. We will have nursing staff come by and see them. Patient is quite fragile in terms of his respiratory status, I am quite concerned that he might acutely decompensate with minimal exertion such as transfer from bed to a chair. I am concerned about him acutely decompensating on the right to getting home, or even on minimal transfer. We will see how he does over the next few hours, and see if he gets better, if not, possibly inpatient hospice would be a better option. I discussed this with patient, he voiced understanding, all questions answered, agreed with above plan. Medications: Reviewed: Yes Vitals/I&O/Wt Last Vital Signs Temp 99.1 F 08/14/19 06:00 Pulse 107 H 08/14/19 11:14 Resp 22 H 08/14/19 11:05 BP 95/67 08/14/19 10:00 Pulse Ox 83 L 08/14/19 11:05 08/13/19 08/14/19 08/14/19 22:59 06:59 14:59 Intake Total 890 / 2440 335 / 2775 Output Total 1150 / 2650 900 / 900 Balance -260 / -210 335 / 125 -900 / -900 Physical Exam Const: COMMON NORMALS: patient oriented x3 GENERAL APPEARANCE: in distress and ill appearing OTHER: In mild distress HENMT: COMMON NORMALS: normocephalic HEAD & SCALP: normocephalic Neck/C-Spine: COMMON NORMALS: no JVD Resp: EFFORT & INSPECTION: Yes able to speak in complete sentences, Yes tachypneic, Yes respiratory distress (mild), Yes retractions, Yes uses accessory muscles and Yes paradoxical thoraco-abdominal movements AUSCULTATION: breath sounds absent and diminished lung sounds Cardio: COMMON NORMALS: no JVD, regular rhythm, S1 normal heart sound present and S2 normal heart sound present RATE: tachycardic RHYTHM: regular rhythm HEART SOUNDS: S1 normal heart sound present and S2 normal heart sound present GI: COMMON NORMALS: Normal to inspection, nondistended, normoactive bowel sounds present, Soft to palpation, non-tender, No hepatosplenomegaly present, no masses and no bruits PALPATION: Yes Soft to palpation and Yes No hepatosplenomegaly present Extremity: COMMON NORMALS: capillary refill normal, no clubbing, cyanosis or edema, no calf tenderness and no pedal edema Neuro: COMMON NORMALS: patient oriented x3 Psych: COMMON NORMALS: mental status grossly normal Urinary Catheter Management^: Casey: Cath Placed During This Visit: yes Reason for Continuing Indwelling Catheter: Accurate Measurement of Urinary Output in Critically Ill Patients Urinary Catheter Date of Insertion: 07/24/19 Urinary Catheter Time of Insertion: 18:22 Data : 08/14/19 03:14 08/14/19 03:14 Micro: Microbiology 08/13/19 02:13 Gram Stain - Final Sputum - Expectorated Sputum Sputum Culture - Preliminary Staphylococcus species 08/11/19 08:45 Urine Culture - Final Urine,Clean Catch A&P Assessment and plan (1) Sepsis with acute hypoxic respiratory failure: Status: Acute Qualifiers: Sepsis type: sepsis due to unspecified organism Severe sepsis shock status: with septic shock Qualified Code(s): A41.9 - Sepsis, unspecified organism; R65.21 - Severe sepsis with septic shock; J96.01 - Acute respiratory failure with hypoxia (2) Septic shock: Status: Acute (3) Hypertension: Status: Acute Qualifiers: Hypertension type: essential hypertension Qualified Code(s): I10 - Essential (primary) hypertension (4) DM type 2 (diabetes mellitus, type 2): Status: Acute Qualifiers: Diabetes mellitus penitentiary insulin use: without penitentiary use Diabetes mellitus complication status: without complication Qualified Code(s): E11.9 - Type 2 diabetes mellitus without complications (5) Pulmonary fibrosis: Status: Acute (6) COPD (chronic obstructive pulmonary disease): Status: Acute Qualifiers: COPD type: unspecified COPD Qualified Code(s): J44.9 - Chronic obstructive pulmonary disease, unspecified (7) Right ventricular dysfunction: Status: Acute (8) MILENA (acute kidney injury): Status: Acute (9) NSTEMI (non-ST elevated myocardial infarction): Status: Acute Additional A&P Information #1 acute hypoxic respiratory failure secondary to idiopathic pulmonary fibrosis, exacerbation of idiopathic pulmonary fibrosis -CT scan shows severe worsening of interstitial pulmonary fibrosis, severe honeycombing, new bilateral groundglass opacities that all indicate severe underlying interstitial pulmonary fibrosis, with acute exacerbation. Overall progressive since CT in 2017. - increase steroids to 80mg iv q8h yesterday however without any significant changes in his condition. In fact he appears to be having worsening respiratory status. appreciate pulmonary recommendations, patient's condition is terminal, has a high mortality rate in the next few weeks to month, and likely patient would not have any meaningful recovery if he were to be intubated, likely would not ever come off ventilator. -per discussin between Dr. rico and [facility], patient's is not a candidate for double lung transplant, nor is he a candidate for tyrosine kinase inhibitors, or experimental treatments, and they have rejected the transfer as there is nothing else they can do for him at this time -Patient continues to be on hi Flow NC -Patient reiterates multiple times that he does eventually want to go home in spite of understanding extremely poor prognosis. He has declined hospice or comfort measures in the past, however will have a discussion with him again regarding these. He did come to terms with this condition and made himself DNR/DNI yesterday. Given his worsening clinical status we will additionally discuss comfort measures with him should the need arise. I had an extensive discussion with his family, son MARGO yesterday as well regarding this. His family is in agreement for DNR/DNI and comfort measures, however we have held off until now in accordance with patient's wishes as he wants to continue with the current line of treatment. - Unable to replicate HFNC at home, therefore looking for transfer to LTAC facility as high amounts of oxygen can only be given in hospitalized care, insurance has declined LTAC twice, working on third attempt, considering swing bed -Broad-spectrum antibiotics including zosyn, zyvox/vanc/azithro between 07/23-08/02/19 to cover for possible HCAP incl MRSA PNA. Completed adequate course. Serial procalcitonin have been negative. -Patient's oxygen requirements have increased to 98% 40 L -Add Solu-Medrol 80 every 8 hours - Continue budesonide and duoneb inhalation -This morning patient has more significant respiratory distress, retractions, tachypnea, nasal flaring, oxygen saturation drop into the low 70s when speaking, episodes of respiratory distress yesterday afternoon, leukocytosis of 20.4 , on day4 of broad-spectrum antibiotics vancomycin, Zosyn, azithromycin, follow blood cultures, sputum cultures, will not do repeat CT of the chest due to patient's delicate respiratory status -Again reiterated to patient that his condition is terminal, unfortunately his prognosis is poor, options are limited -I had a re-discussion about patient's goals of care options I presented to the patient was: 1.) Continuing medical interventions as above, re-appeal his insurance denial of LTAC, which could take months, might require court appearance, he would likely have a prolonged hospital stay, would likely succumb to his disease in the hospital 2.) Reconsider transfer to tertiary center for lung transplant, he will need to have an accepting green party, accepting physician, he will need to be transplanted on the ventilator, likely remain on the ventilator, carry significant morbidity and mortality on the ventilator, will likely require ecmo on transport and at tertiary center which would carry morbidity and mortality, all this would not also guarantee a lung transplant nor a successful one. All in all this option has the highest immediate risk of high morbidity and mortality rate, but would offer him the option of longevity of life. 3.) Hospice, hospice at home, we could mimic high flow as best as we can, but he could be at home, and be comfortable, this option emphasizes the quality of life Patient will think these options over's, discuss with family members, he wanted me to talk to his son -After discussion today on 08/12/2019, patient agreed to home hospice, will try to mimic his high flow, but cannot be exact, discussed risks and benefits, voiced understanding, all questions answered, has been accepted by home hospice, proceed to home hospice on Thursday -Throughout the weekend patient continues to have episodes of respiratory distress with minimal exertion, much more frequent, episodes of desaturations, looking more ill -On the morning of 08/14/2019, looks like he is in respiratory distress, nasal flaring, tachypnea, intercostal retractions, is uncomfortable, symptoms are not improving with morphine, is very fragile in terms of his respiratory status, I do not see how he could safely be transported home on home hospice, as he could acutely do not decompensate with minimal exertion. We will see how he does this afternoon, see if inpatient hospice would be a better option, will have family members come by and see him, patient's prognosis is poor, condition is critical # Severe right ventricular dysfunction with pulmonary hypertension: -Patient's echocardiogram shows severe right heart strain, severely decreased right ventricular systolic function,, right atrial pressure 20 mmHg, last troponin is 140 Secondary to idiopathic pulmonary fibrosis, Ddiuresing well but increasing 02 requirements. Continue Lasix, titrating based on urine output and renal function. 2. Septic shock, now resolved D/c antibiotics, adequate course since 07/23-08/01 persisting leukocytosis more likely to be marginationf rom steroids. No fever, s/p adequate course of abx, procalcitonin negative several times incl on 08/05. #3 acute hypoxic respiratory failure Echo evidence of right heart strain on echocardiogram (though this may be related to underlying interstitial lung disease) Lower extremity Doppler performed in the ER is without any evidence of DVT. COVID testing negative x2 #3 diabetes mellitus, Continue high-dose sliding scale + levemir 15 U bid #4 hypotension, resolved, off Levophed #5 NSTEMI: Likely related to right heart strain, acute hypoxic respiratory failure, last troponin I 140 trending down, no chest pain, EKG shows T wave inversions in anterior chest leads, continue aspirin and statin #6 history of COPD and interstitial lung disease #7 acute kidney injury, likely as a result of sepsis Dvt ppx: lovenox DNR/DNI Attestations Medical Necessity Statement*: Acute respiratory failure, acutely decompensating, possible transition to inpatient hospice Coding Level of Care Code Acute Senior Solutions Engineer for [facility] Fwd Diagnoses Sepsis with acute hypoxic respiratory failure A41.9; R65.21; J96.01 Sepsis type: sepsis due to unspecified organism Severe sepsis shock status: with septic shock Septic shock A41.9; R65.21 Hypertension I10 Hypertension type: essential hypertension DM type 2 (diabetes mellitus, type 2) E11.9 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
--- NOTE | 2019-08-14 13:09 | PC.NURSE ---
up in bed very lethargic and dyspnic at this time repositioned up in bed at this time
[2019-08-14 17:31] LABS: Glucose Point of Care 380 mg/dL (70-110)
[2019-08-14 17:31] LABS: Glucose Point of Care 201 mg/dL (70-110)
--- NOTE | 2019-08-14 17:44 | PM.DCS ---
Discharge Providers Date of Admission: 07/24/19 18:16 Date of Discharge: August 14, 2019 Attending Provider at Admission: Yissel Toribio MD Attending Provider at Discharge: Adam Cifuentes MD Primary Care Provider: Ernestina Estrella NP Diagnoses at Discharge Discharge Diagnosis (1) Sepsis with acute hypoxic respiratory failure: Status: Acute Qualifiers: Sepsis type: sepsis due to unspecified organism Severe sepsis shock status: with septic shock Qualified Code(s): A41.9 - Sepsis, unspecified organism; R65.21 - Severe sepsis with septic shock; J96.01 - Acute respiratory failure with hypoxia (2) Septic shock: Status: Acute (3) Hypertension: Status: Acute Qualifiers: Hypertension type: essential hypertension Qualified Code(s): I10 - Essential (primary) hypertension (4) DM type 2 (diabetes mellitus, type 2): Status: Acute Qualifiers: Diabetes mellitus complication status: without complication Diabetes mellitus terminal operations supervisor insulin use: without fci use Qualified Code(s): E11.9 - Type 2 diabetes mellitus without complications (5) Pulmonary fibrosis: Status: Acute (6) COPD (chronic obstructive pulmonary disease): Status: Acute Qualifiers: COPD type: unspecified COPD Qualified Code(s): J44.9 - Chronic obstructive pulmonary disease, unspecified (7) Right ventricular dysfunction: Status: Acute (8) MILENA (acute kidney injury): Status: Acute (9) NSTEMI (non-ST elevated myocardial infarction): Status: Acute Reason for Visit Reason for Visit: SOB Hospital Course Discharge Summary: This is a 69-year-old male with a past medical history of type 2 diabetes mellitus, hypertension, idiopathic pulmonary fibrosis with COPD, GERD, history of smoking who presents to [facility] due to fevers, cough, shortness of breath. Patient was admitted to [facility] for acute hypoxic respiratory failure secondary to acute exacerbation of idiopathic pulmonary fibrosis, emphysema syndrome, possible pneumonia, possible COVID-19. Patient was admitted to the intensive care unit, was a DNR/DNI, was started on high flow oxygen, received broad-spectrum antibiotic therapy, and close monitoring of his respiratory status in ICU. With consultation with Dr. Rodriguez pulmonary critical care, he was started on 3 days of high-dose steroids. Patient was advised that acute exacerbation of idiopathic pulmonary fibrosis a high mortality rate. -His CT scan in 2017 showed There is extensive peripheral pleural thickening with retraction and volume loss. Subpleural lucencies with honeycombing and traction bronchiectasis in the upper and lower lobes. Stable subcentimeter nodules at the left apex and left lung base since 02/01/2014. No increase in size. Largest nodule the left lung base measures 8 mm. No pericardial or pleural effusions -Patient states that he has not seen a physician in about a year, has been noncompliant with medical therapy, has had progressive shortness of breath over the last a year, has not sought medical attention, but all in the last week has progressively gotten worse -Patient's AAA gradient on his ABGs were very high up to 589, indicating severe ventilation/perfusion mismatch, from severe pleural thickening, severe parenchymal thickening severe airspace disease -Patient's echocardiogram showed severe right heart strain, severely decreased right ventricular systolic function, right atrial pressure 20 mmHg, last troponin is 140 -CT scan on this admission shows severe worsening of interstitial pulmonary fibrosis, severe honeycombing, new bilateral groundglass opacities that all indicate severe underlying interstitial pulmonary fibrosis, with acute exacerbation -I reviewed the case and patient CT scan with Dr. Michael lorenzo, and I and he felt that the majority of patient's initial presentation is from exacerbation of his idiopathic pulmonary fibrosis, likely his severe right heart strain, profound hypoxia, elevated d-dimer, elevated troponin, acute respiratory failure is secondary to worsening idiopathic pulmonary fibrosis -Dr. Rodriguez felt that high-dose steroids might provide some benefit, there is not much else we can do for him, patient's condition is terminal, has a high mortality rate in the next few weeks to month, and likely patient would not have any meaningful recovery if he were to be intubated, likely would not ever come off ventilator. -After speaking with [facility], patient's is not a candidate for double lung transplant, nor is he a candidate for tyrosine kinase inhibitors, or experimental treatments, and they have rejected the transfer as there is nothing else they can do for him, and he is a very high risk of morbidity and mortality in transport -I discussed with the patient his terminal diagnosis of what it looks likely idiopathic pulmonary fibrosis, as above -I advised patient that above all we can do everything according to his wishes, we could continue all aggressive interventions if that were his wishes, or we could pursue a less invasive strategy, or even pursue comfort care; patient wants to continue medical interventions at this time -Did have a discussion with Dr. Rodriguez with son at bedside, all the above was explained to him, for now he wants to continue all medical interventions, to see if he could improve -Patient was treated with high-dose steroids over the next 3 days, also received broad-spectrum antibiotic coverage, also diuresis therapy -Patient's condition improved over the next few days, his oxygen requirements decreased to 70 -80 percent on 40 L -Patient was also treated for septic shock secondary to pneumonia, his sepsis resolved, no fevers, blood cultures remain unremarkable -Patient also had NSTEMI, on admission likely secondary right heart strain for acute hypoxic respiratory failure from exacerbation of idiopathic pulmonary fibrosis, patient was treated with aspirin and statin -Patient's condition somewhat improved over the next few days, was unable to ambulate up to a chair with less symptomatology, but still requiring 70 to 80% of 40 L, respiratory cultures showed MRSA, blood cultures within normal limits, urine cultures within normal limits. -Patient finished 14 days of antibiotic therapy -He was put back on higher dose steroids 14 days into his admission due to worsening respiratory status -His condition somewhat stayed stable, the goal was to get him to a long-term care facility such as LTAC -He was diuresed almost 20 L since admission -I took the case back over a week ago -What I noticed was patient in the mornings typically would have episodes of respiratory distress, tachypnea, intercostal retractions, nasal flaring, respiratory distress with minimal exertion, but would settle down in the afternoons -However mom is becoming much more frequent as was his episodes of respiratory distress with minimal exertion such as getting up into a chair, limiting his options -Unfortunately over the next few days his oxygen requirements increased to 100% on 40 L, still having episodes of respiratory distress, daily, looking more tachypneic, having nasal flaring, intercostal retractions, belly breathing -I decided to put patient back on broad-spectrum antibiotics, increase his dose of steroids -Unfortunately patient's insurance company declined his request for placement at LTAC twice, was declined from a swing bed -Patient in my mind was too unstable to have a CT scan due to concern for deterioration during examination I had a re-discussion about patient's goals of care options I presented to the patient was: on 08/12/2019 I discussed with patient, and his son about his goals of care, options I presented to him were: 1.) Continuing medical interventions as above, re-appeal his insurance denial of LTAC, which could take months, might require court appearance, he would likely have a prolonged hospital stay, would likely succumb to his disease in the hospital 2.) Reconsider transfer to tertiary center for lung transplant, he will need to have an accepting republican, accepting physician, he will need to be transplanted on the ventilator, likely remain on the ventilator, carry significant morbidity and mortality on the ventilator, will likely require ecmo on transport and at tertiary center which would carry morbidity and mortality, all this would not also guarantee a lung transplant nor a successful one. All in all this option has the highest immediate risk of high morbidity and mortality rate, but would offer him the option of longevity of life. 3.) Hospice, hospice at home, we could mimic high flow as best as we can, but he could be at home, and be comfortable, this option emphasizes the quality of life -After discussion today on 08/12/2019, patient agreed to home hospice, will try to mimic his high flow, but cannot be exact, discussed risks and benefits, voiced understanding, all questions answered, has been accepted by home hospice, proceed to home hospice on Thursday -Throughout the weekend patient continued to have episodes of respiratory distress with minimal exertion, much more frequent, episodes of desaturations, looking more ill -The plan at this point was to do home hospice hopefully on Thursday -On the morning and the afternoon of of 08/14/2019, patient looks like he is in respiratory distress, nasal flaring, tachypnea, intercostal retractions, symptoms are not improving as we like with morphine, he has become very fragile in terms of his respiratory status, I do not see how he could safely be transported home on home hospice, as he could acutely decompensate with minimal exertion. patient's prognosis is poor, condition is critical - I spoke to patient, patient's sons and patient's daughter about the above case on the evening of 08/14/2019, in the ICU, all questions answered, voiced understanding, all questions answered -I discussed with the patient and family this afternoon about his declining status, his condition is critical, prognosis is poor -It is patient's last wish to pass away at home -Him and his family understand he has a high risk of morbidity mortality passing away on route or in an attempt to get him brielle, voiced understanding, all questions answered, want to try to get home -I spoke to his family members and him, he really wants to pass away at home they really want him to go home -He has a high risk of morbidity and mortality in attempt to get him home -In order to try to get him home I am going to start him on high-dose steroids 500 every 12 hours 4 doses -The hospice nurse can ride with him in the ambulance ride home, I have confirmed this -it will be up to the EMS crew if family can ride in the ambulance ride home -It is always a possibility that the EMS crew might reject to transfer him home -I am trying my best, to honor his last wish -Him and his family understand that he could pass away on the route home, or are in our efforts to try to honor his last wish, they accept these risks, voiced understanding, all questions answered -Obviously if all above fails or is not feasible inpatient hospice would be the best option -I will pass the case on to Dr. Goodwin, unless patient deteriorates in the next 24 hours Physical Exam Const: COMMON NORMALS: patient oriented x3 GENERAL APPEARANCE: in distress and ill appearing OTHER: In mild distress HENMT: COMMON NORMALS: normocephalic HEAD & SCALP: normocephalic Neck/C-Spine: COMMON NORMALS: no JVD Resp: COMMON NORMALS: normal respiratory effort EFFORT & INSPECTION: Yes able to speak in complete sentences, Yes tachypneic, Yes respiratory distress (mild), Yes retractions, Yes uses accessory muscles and Yes paradoxical thoraco-abdominal movements AUSCULTATION: breath sounds absent and diminished lung sounds Cardio: COMMON NORMALS: no JVD, regular rhythm, S1 normal heart sound present and S2 normal heart sound present RATE: tachycardic RHYTHM: regular rhythm HEART SOUNDS: S1 normal heart sound present and S2 normal heart sound present GI: COMMON NORMALS: Normal to inspection, nondistended, normoactive bowel sounds present, Soft to palpation, non-tender, No hepatosplenomegaly present, no masses and no bruits PALPATION: Yes Soft to palpation and Yes No hepatosplenomegaly present Extremity: COMMON NORMALS: capillary refill normal, no clubbing, cyanosis or edema, no calf tenderness and no pedal edema Neuro: COMMON NORMALS: patient oriented x3 Psych: COMMON NORMALS: mental status grossly normal Urinary Catheter Management^: Casey: Cath Placed During This Visit: yes Reason for Continuing Indwelling Catheter: Accurate Measurement of Urinary Output in Critically Ill Patients Urinary Catheter Date of Insertion: 07/24/19 Urinary Catheter Time of Insertion: 18:22 Discharge Data Data Completed and Pending: Completed Studies During Hospitalization Category Date Time Status CT angio chest PE protcl [id number] Rout ine Cat Scan 07/26/19 08:00 Completed XR KUB portable 7 4018 Routine Exams 08/11/19 19:14 Completed XR chest 1V jorge ble [id number] Routine Exams 07/26/19 07:00 Completed XR chest 1V jorge ble [id number] Routine Exams 07/29/19 07:00 Completed XR chest 1V jorge ble [id number] Routine Exams 08/01/19 07:00 Completed XR chest 1V jorge ble [id number] Routine Exams 08/09/19 07:00 Completed XR chest 1V jorge ble [id number] Routine Exams 08/12/19 07:00 Completed XR chest 1V jorge ble [id number] Stat Exams 07/24/19 13:06 Completed XR chest 1V jorge ble [id number] Stat Exams 08/05/19 14:12 Completed CV echo limited 9 3308 Stat Ultrasound 07/24/19 14:43 [place] [id number] Stat Ultrasound 07/24/19 16:04 Completed Pending at discharge Category Date Time Status Aspergillus AG,EI A,Serum Stat Lab 08/11/19 08:08 Received Blood Culture Sta t Lab 08/11/19 08:03 Results Complete Blood Co unt w/Auto AM LABS Lab 08/15/19 04:00 Ordered Complete Blood Co unt w/Auto AM LABS Lab 08/16/19 04:00 Ordered Complete Blood Co unt w/Auto AM LABS Lab 08/17/19 04:00 Ordered Comprehensive Met abolic Panel AM LA BS Lab 08/15/19 04:00 Ordered Comprehensive Met abolic Panel AM LA BS Lab 08/16/19 04:00 Ordered Comprehensive Met abolic Panel AM LA BS Lab 08/17/19 04:00 Ordered Magnesium AM LABS Lab 08/15/19 04:00 Ordered Magnesium AM LABS Lab 08/16/19 04:00 Ordered Magnesium AM LABS Lab 08/17/19 04:00 Ordered Phosphorus AM LAB S Lab 08/15/19 04:00 Ordered Phosphorus AM LAB S Lab 08/16/19 04:00 Ordered Phosphorus AM LAB S Lab 08/17/19 04:00 Ordered Procalcitonin AM LABS Lab 08/15/19 04:00 Ordered Procalcitonin AM LABS Lab 08/16/19 04:00 Ordered Procalcitonin AM LABS Lab 08/17/19 04:00 Ordered Sputum Culture an d Gram Stain Stat Lab 08/13/19 02:13 Results Viral Respiratory ,Rapid Cultur Stat Lab 07/26/19 19:23 Results Labs from last 24 hours 08/14/19 08/14/19 08/14/19 16:54 11:05 07:39 WBC RBC Hgb Hct MCV MCH MCHC RDW Plt Count MPV Neut % (Auto) Lymph % (Auto) [place] % (Auto) Eos % (Auto) Baso % (Auto) Neut # (Auto) Lymph # (Auto) [place] # (Auto) Eos # (Auto) Baso # (Auto) Nucleated RBC % (a uto) Nucleated RBCs # PT INR Sodium Potassium Chloride Carbon Dioxide Anion Gap BUN Creatinine GFR Calculation Glucose POC Glucose 380 141 108 Calculated Osmolal ity Calcium Phosphorus Magnesium Total Bilirubin AST ALT Alkaline Phosphata se C-Reactive Protein Total Protein Albumin Globulin Procalcitonin 08/14/19 08/14/19 08/14/19 03:14 03:14 03:14 WBC RBC Hgb Hct MCV MCH MCHC RDW Plt Count MPV Neut % (Auto) Lymph % (Auto) [place] % (Auto) Eos % (Auto) Baso % (Auto) Neut # (Auto) Lymph # (Auto) [place] # (Auto) Eos # (Auto) Baso # (Auto) Nucleated RBC % (a uto) Nucleated RBCs # PT 12.20 INR 0.88 Sodium 139 Potassium 4.5 Chloride 96 L Carbon Dioxide 33 H Anion Gap 14.5 BUN 30 H Creatinine 0.7 GFR Calculation 112.5 Glucose 172 H POC Glucose Calculated Osmolal ity 289 Calcium 9.1 Phosphorus 2.7 Magnesium 2.1 Total Bilirubin 1.0 AST 15 ALT 15 Alkaline Phosphata se 106 C-Reactive Protein 31.1 H Total Protein 6.6 Albumin 2.9 L Globulin 3.7 Procalcitonin 0.09 08/14/19 08/13/19 08/13/19 03:14 20:28 17:22 WBC 20.4 H RBC 5.59 H Hgb 16.6 Hct 52.3 H MCV 93.6 MCH 29.7 MCHC 31.7 RDW 14.0 Plt Count 79 L MPV 13.8 H Neut % (Auto) 86.9 Lymph % (Auto) 8.3 [place] % (Auto) 3.7 Eos % (Auto) 0.5 Baso % (Auto) 0.1 Neut # (Auto) 17.7 H Lymph # (Auto) 1.7 [place] # (Auto) 0.8 Eos # (Auto) 0.1 Baso # (Auto) 0.0 Nucleated RBC % (a uto) 0 Nucleated RBCs # 0.0 PT INR Sodium Potassium Chloride Carbon Dioxide Anion Gap BUN Creatinine GFR Calculation Glucose POC Glucose 198 201 Calculated Osmolal ity Calcium Phosphorus Magnesium Total Bilirubin AST ALT Alkaline Phosphata se C-Reactive Protein Total Protein Albumin Globulin Procalcitonin Vitals: Last Vital Signs Temp 97 F L 08/14/19 14:00 Pulse 107 H 08/14/19 16:00 Resp 33 H 08/14/19 16:00 BP 113/69 08/14/19 16:00 Pulse Ox 84 L 08/14/19 16:00 Discharge Plan Discharge Patient Disposition: Hospice - Home Condition: Stable Prescriptions: Continued diltiazem HCl 240 mg capsule,extended release 24 hr 240 mg PO DAILY RF: 0 tramadol 50 mg tablet 50 mg PO Q8H PRN (Reason: Pain) RF: 0 valsartan 320 mg tablet 160 mg PO DAILY RF: 0 gabapentin 300 mg capsule 300 mg PO TID RF: 0 Spiriva with HandiHaler 18 mcg capsule, w/inhalation device 1 cap INHALATION DAILY RF: 0 Victoza 3-Cassius 0.6 mg/0.1 mL (18 mg/3 mL) pen injector 1.8 mg SUBCUT DAILY RF: 0 Discharge Orders: Discharge Order (Routine); Ordered 08/15/19 Ordered By: Bari Reynolds Referrals: [facility] [Outside] Discharge Diet: Advance as tolerated Discharge Activity: Bedrest Patient Instructions: Hospice Care, Using Oxygen at Home (DC) Discharge Date/Time: 08/15/19 15:45 Discharge Attestations Time Spent in Discharge Care*: less than 30 min Quality Metrics Clinical Quality Measures During this hospital stay, did patient experience: None Coding Level of Care Code Acute Inspector Outside Production for Chg Fwd Exam Comprehensive Diagnoses Sepsis with acute hypoxic respiratory failure A41.9; R65.21; J96.01 Sepsis type: sepsis due to unspecified organism Severe sepsis shock status: with septic shock Septic shock A41.9; R65.21 Hypertension I10 Hypertension type: essential hypertension DM type 2 (diabetes mellitus, type 2) E11.9 Diabetes mellitus complication status: without complication Diabetes mellitus terminal operations supervisor insulin use: without terminal operations supervisor use Pulmonary fibrosis J84.10 COPD (chronic obstructive pulmonary disease) J44.9 COPD type: unspecified COPD Right ventricular dysfunction I51.9 MILENA (acute kidney injury) N17.9 NSTEMI (non-ST elevated myocardial infarction) I21.4
--- NOTE | 2019-08-14 19:59 | PC.NURSE ---
patient not doing well dr. Foster called to see if family can come to visit since patient is now on hospice care and is deteriorating resp [place].patient has become very anxious and breathing has been very eratic.
[2019-08-15] VITALS (20 sets, daily range): BP systolic 93–125; BP diastolic 61–88; PULSE 75–111; RESP 12–46; O2SAT 76–87
[2019-08-15] MEDS: azithromycin 500 MG in sodium chloride 0.9% 250 ML 250 MG IV (03:07)
[2019-08-15] MEDS: piperacillin-tazobactam 3.375 GM in sodium chloride 0.9% (plus) 50 ML IV ×3 (03:11→15:15)
[2019-08-15] MEDS: pantoprazole DR 40 mg Tablet PO (03:23)
--- NOTE | 2019-08-15 03:36 | PC.NURSE ---
patient c/o pain 10/10. oral morphine given.
[2019-08-15] MEDS: ipratropium-albuterol 3 mL Neb INHALATION ×3 (03:38→11:23)
[2019-08-15 04:28] LABS: Basophils % 0.1 %; Hemoglobin 15.8 g/dL (11.7-16.6); Lymphocytes # 0.7 10^3/uL (0.8-4.8); Lymphocytes % 4.4 %; Mean Corpuscular HGB Conc 32.2 g/dL (30.0-36.0); Mean Corpuscular Hemoglobin 29.6 pg (28.0-34.0); Mean Corpuscular Volume 91.9 fL (80-94); Monocytes # 0.3 10^3/uL (0.2-0.9); Monocytes % 2.1 %; Neutrophils # 14.9 10^3/uL (1.8-7.7); Neutrophils % 92.9 %; Nucleated Red Blood Cells % 0 %; Platelet Count 68 10^3/cmm (130-400); Positive M 1; Red Blood Count 5.33 10^6/uL (4.1-5.3); Red Cell Distribution Width 13.8 % (12.1-15.1)
[2019-08-15 04:47] LABS: Alanine Aminotransferase 15 U/L (0-41); Albumin Level 2.8 g/dL (3.5-5.2); Alkaline Phosphatase 94 IU/L (40-130); Anion Gap 13.2 (5-19); Aspartate Amino Transferase 14 U/L (0-40); Blood Urea Nitrogen 33 mg/dL (8-23); Calcium 9.2 mg/dL (8.5-10.5); Carbon Dioxide 31 mmol/L (22-29); Chloride 99 mmol/L (98-107); Globulin 3.2 g/dL (1.3-4.6); Glomerular Filtration Rate 112.5 mL/min (90-130); Glucose 144 mg/dL (65-115); Magnesium 2.2 mg/dL (1.7-2.3); Osmolality Calculated 288 mOsm/kg (285-295); Phosphorus 3.1 mg/dL (2.5-4.5); Potassium 4.2 mmol/L (3.5-5.1); Sodium 139 mmol/L (136-145); Total Bilirubin 0.7 mg/dL (0.15-1.2)
[2019-08-15 04:58] LABS: Procalcitonin 0.13 ng/mL (0-0.5)
[2019-08-15 06:31] LABS: Glucose Point of Care 294 mg/dL (70-110)
[2019-08-15] MEDS: morphine 4 mg/mL SDV 1 mL 2 MG IVP ×3 (07:41→15:19)
[2019-08-15] MEDS: budesonide 0.5 mg/2 mL Neb INHALATION (08:53)
[2019-08-15] MEDS: nystatin 100,000 unit/mL UDC 5 mL 400000 UNIT PO ×2 (09:25→12:41)
[2019-08-15] MEDS: dilTIAZem ER (24HR) 240 mg Capsule PO (09:26)
[2019-08-15] MEDS: benzonatate 100 mg Capsule PO ×2 (09:26→15:15)
[2019-08-15] MEDS: gabapentin 300 mg Capsule PO ×2 (09:27→15:16)
[2019-08-15] MEDS: losartan 50 mg Tablet PO (09:27)
[2019-08-15] MEDS: atorvastatin 40 mg Tablet PO (09:27)
[2019-08-15] MEDS: potassium chloride ER 10 mEq Tablet 40 MEQ PO (09:27)
[2019-08-15] MEDS: metoprolol tartrate 25 mg Tablet PO (09:28)
[2019-08-15] MEDS: FUROsemide 40 mg Tablet PO ×2 (09:29→15:16)
[2019-08-15] MEDS: ALPRAZolam 0.25 mg Tablet PO (09:30)
[2019-08-15] MEDS: polyethylene glycol 3350 Pkt 17 gm PO (09:32)
--- NOTE | 2019-08-15 10:53 | PM.DCS ---
Discharge Providers Date of Admission: 07/24/19 18:16 Date of Discharge: August 15, 2019 Attending Provider at Admission: Yissel Toribio MD Attending Provider at Discharge: Bari Reynolds MD Primary Care Provider: Ernestina Estrella NP Diagnoses at Discharge Discharge Diagnosis (1) Sepsis with acute hypoxic respiratory failure: Status: Acute Qualifiers: Sepsis type: sepsis due to unspecified organism Severe sepsis shock status: with septic shock Qualified Code(s): A41.9 - Sepsis, unspecified organism; R65.21 - Severe sepsis with septic shock; J96.01 - Acute respiratory failure with hypoxia (2) Septic shock: Status: Acute (3) Hypertension: Status: Acute Qualifiers: Hypertension type: essential hypertension Qualified Code(s): I10 - Essential (primary) hypertension (4) DM type 2 (diabetes mellitus, type 2): Status: Acute Qualifiers: Diabetes mellitus complication status: without complication Diabetes mellitus terminal supervisor insulin use: without terminal supervisor use Qualified Code(s): E11.9 - Type 2 diabetes mellitus without complications (5) Pulmonary fibrosis: Status: Acute (6) COPD (chronic obstructive pulmonary disease): Status: Acute Qualifiers: COPD type: unspecified COPD Qualified Code(s): J44.9 - Chronic obstructive pulmonary disease, unspecified (7) Right ventricular dysfunction: Status: Acute (8) MILENA (acute kidney injury): Status: Acute (9) NSTEMI (non-ST elevated myocardial infarction): Status: Acute (10) Hospice care patient: Status: Acute Reason for Visit Reason for Visit: SOB Hospital Course Discharge Summary: This is a 69-year-old male with a past medical history of type 2 diabetes mellitus, hypertension, idiopathic pulmonary fibrosis with COPD, GERD, history of smoking who presents to [facility] due to fevers, cough, shortness of breath. Patient was admitted to [facility] for acute hypoxic respiratory failure secondary to acute exacerbation of idiopathic pulmonary fibrosis, emphysema syndrome, possible pneumonia, possible COVID-19. Patient was admitted to the intensive care unit, was a DNR/DNI, was started on high flow oxygen, received broad-spectrum antibiotic therapy, and close monitoring of his respiratory status in ICU. With consultation with Dr. Rodriguez pulmonary critical care, he was started on 3 days of high-dose steroids. Patient was advised that acute exacerbation of idiopathic pulmonary fibrosis a high mortality rate. -His CT scan in 2017 showed There is extensive peripheral pleural thickening with retraction and volume loss. Subpleural lucencies with honeycombing and traction bronchiectasis in the upper and lower lobes. Stable subcentimeter nodules at the left apex and left lung base since 02/01/2014. No increase in size. Largest nodule the left lung base measures 8 mm. No pericardial or pleural effusions -Patient states that he has not seen a physician in about a year, has been noncompliant with medical therapy, has had progressive shortness of breath over the last a year, has not sought medical attention, but all in the last week has progressively gotten worse -Patient's AAA gradient on his ABGs were very high up to 589, indicating severe ventilation/perfusion mismatch, from severe pleural thickening, severe parenchymal thickening severe airspace disease -Patient's echocardiogram showed severe right heart strain, severely decreased right ventricular systolic function, right atrial pressure 20 mmHg, last troponin is 140 -CT scan on this admission shows severe worsening of interstitial pulmonary fibrosis, severe honeycombing, new bilateral groundglass opacities that all indicate severe underlying interstitial pulmonary fibrosis, with acute exacerbation CT scan was reviewed with Dr. Rodriguez from pulmonology and he felt that the majority of patient's initial presentation is from exacerbation of his idiopathic pulmonary fibrosis, likely his severe right heart strain, profound hypoxia, elevated d-dimer, elevated troponin, acute respiratory failure is secondary to worsening idiopathic pulmonary fibrosis -Dr. Rodriguez felt that high-dose steroids might provide some benefit, there is not much else we can do for him, patient's condition is terminal, has a high mortality rate in the next few weeks to month, and likely patient would not have any meaningful recovery if he were to be intubated, likely would not ever come off ventilator. -After speaking with [facility], patient's is not a candidate for double lung transplant, nor is he a candidate for tyrosine kinase inhibitors, or experimental treatments, and they have rejected the transfer as there is nothing else they can do for him, and he is a very high risk of morbidity and mortality in transport -I discussed with the patient his terminal diagnosis of what it looks likely idiopathic pulmonary fibrosis, as above -I advised patient that above all we can do everything according to his wishes, we could continue all aggressive interventions if that were his wishes, or we could pursue a less invasive strategy, or even pursue comfort care; patient wants to continue medical interventions at this time -Did have a discussion with Dr. Rodriguez with son at bedside, all the above was explained to him, for now he wants to continue all medical interventions, to see if he could improve -Patient was treated with high-dose steroids over the next 3 days, also received broad-spectrum antibiotic coverage, also diuresis therapy -Patient's condition improved over the next few days, his oxygen requirements decreased to 70 -80 percent on 40 L -Patient was also treated for septic shock secondary to pneumonia, his sepsis resolved, no fevers, blood cultures remain unremarkable -Patient also had NSTEMI, on admission likely secondary right heart strain for acute hypoxic respiratory failure from exacerbation of idiopathic pulmonary fibrosis, patient was treated with aspirin and statin -Patient's condition somewhat improved over the next few days, was unable to ambulate up to a chair with less symptomatology, but still requiring 70 to 80% of 40 L, respiratory cultures showed MRSA, blood cultures within normal limits, urine cultures within normal limits. -Patient finished 14 days of antibiotic therapy -He was put back on higher dose steroids 14 days into his admission due to worsening respiratory status -His condition somewhat stayed stable, the goal was to get him to a long-term care facility such as LTAC -He was diuresed almost 20 L since admission Unfortunately over the next few days his oxygen requirements increased to 100% on 40 L, still having episodes of respiratory distress, daily, looking more tachypneic, having nasal flaring, intercostal retractions, belly breathing Unfortunately patient's insurance company declined his request for placement at LTAC twice, was declined from a swing bed Due to all the above patient, patient's family and the provider had another goals of care discussion on 08/12/2019 at which options presented to him were : 1.) Continuing medical interventions as above, re-appeal his insurance denial of LTAC, which could take months, might require court appearance, he would likely have a prolonged hospital stay, would likely succumb to his disease in the hospital 2.) Reconsider transfer to tertiary center for lung transplant, he will need to have an accepting constitution party, accepting physician, he will need to be transplanted on the ventilator, likely remain on the ventilator, carry significant morbidity and mortality on the ventilator, will likely require ecmo on transport and at tertiary center which would carry morbidity and mortality, all this would not also guarantee a lung transplant nor a successful one. All in all this option has the highest immediate risk of high morbidity and mortality rate, but would offer him the option of longevity of life. 3.) Hospice, hospice at home, we could mimic high flow as best as we can, but he could be at home, and be comfortable, this option emphasizes the quality of life -After discussion today on 08/12/2019, patient agreed to home hospice, will try to mimic his high flow, but cannot be exact, discussed risks and benefits, voiced understanding, all questions answered, has been accepted by home hospice, proceed to home hospice on Thursday -Throughout the weekend patient continued to have episodes of respiratory distress with minimal exertion, much more frequent, episodes of desaturations, looking more ill. Given the above patient is been discharged home with hospice as per his wishes. Family, patient were made aware in detail that he could very well pass away on the route to home or, or are in our efforts to try to honor his last wish, they accept these risks, voiced understanding, all questions answered. Physical Exam Const: COMMON NORMALS: patient oriented x3 GENERAL APPEARANCE: in distress and ill appearing OTHER: In mild distress HENMT: COMMON NORMALS: normocephalic HEAD & SCALP: normocephalic Neck/C-Spine: COMMON NORMALS: no JVD Resp: COMMON NORMALS: normal respiratory effort EFFORT & INSPECTION: Yes able to speak in complete sentences, Yes tachypneic, Yes respiratory distress (mild), Yes retractions, Yes uses accessory muscles and Yes paradoxical thoraco-abdominal movements AUSCULTATION: breath sounds absent and diminished lung sounds Cardio: COMMON NORMALS: no JVD, regular rhythm, S1 normal heart sound present and S2 normal heart sound present RATE: tachycardic RHYTHM: regular rhythm HEART SOUNDS: S1 normal heart sound present and S2 normal heart sound present GI: COMMON NORMALS: Normal to inspection, nondistended, normoactive bowel sounds present, Soft to palpation, non-tender, No hepatosplenomegaly present, no masses and no bruits PALPATION: Yes Soft to palpation and Yes No hepatosplenomegaly present Extremity: COMMON NORMALS: capillary refill normal, no clubbing, cyanosis or edema, no calf tenderness and no pedal edema Neuro: COMMON NORMALS: patient oriented x3 Psych: COMMON NORMALS: mental status grossly normal Urinary Catheter Management^: Casey: Cath Placed During This Visit: yes Reason for Continuing Indwelling Catheter: Accurate Measurement of Urinary Output in Critically Ill Patients Urinary Catheter Date of Insertion: 07/24/19 Urinary Catheter Time of Insertion: 18:22 Discharge Data Data Completed and Pending: Completed Studies During Hospitalization Category Date Time Status CT angio chest PE protcl 17914 Rout ine Cat Scan 07/26/19 08:00 Completed XR KUB portable 7 4018 Routine Exams 08/11/19 19:14 Completed XR chest 1V jorge ble [id number] Routine Exams 07/26/19 07:00 Completed XR chest 1V jorge ble [id number] Routine Exams 07/29/19 07:00 Completed XR chest 1V jorge ble [id number] Routine Exams 08/01/19 07:00 Completed XR chest 1V jorge ble [id number] Routine Exams 08/09/19 07:00 Completed XR chest 1V jorge ble [id number] Routine Exams 08/12/19 07:00 Completed XR chest 1V jorge ble [id number] Stat Exams 07/24/19 13:06 Completed XR chest 1V jorge ble [id number] Stat Exams 08/05/19 14:12 Completed CV echo limited 9 3308 Stat Ultrasound 07/24/19 14:43 [place] [id number] Stat Ultrasound 07/24/19 16:04 Completed Pending at discharge Category Date Time Status Aspergillus AG,EI A,Serum Stat Lab 08/11/19 08:08 Received Blood Culture Sta t Lab 08/11/19 08:03 Results Complete Blood Co unt w/Auto AM LABS Lab 08/16/19 04:00 Ordered Complete Blood Co unt w/Auto AM LABS Lab 08/17/19 04:00 Ordered Comprehensive Met abolic Panel AM LA BS Lab 08/16/19 04:00 Ordered Comprehensive Met abolic Panel AM LA BS Lab 08/17/19 04:00 Ordered Magnesium AM LABS Lab 08/16/19 04:00 Ordered Magnesium AM LABS Lab 08/17/19 04:00 Ordered Phosphorus AM LAB S Lab 08/16/19 04:00 Ordered Phosphorus AM LAB S Lab 08/17/19 04:00 Ordered Procalcitonin AM LABS Lab 08/16/19 04:00 Ordered Procalcitonin AM LABS Lab 08/17/19 04:00 Ordered Viral Respiratory ,Rapid Cultur Stat Lab 06/09/20 19:23 Results Labs from last 24 hours 08/15/19 08/15/19 08/15/19 03:18 03:18 03:18 WBC 16.0 H RBC 5.33 H Hgb 15.8 Hct 49.0 MCV 91.9 MCH 29.6 MCHC 32.2 RDW 13.8 Plt Count 68 L MPV 14.0 H Neut % (Auto) 92.9 Lymph % (Auto) 4.4 [place] % (Auto) 2.1 Eos % (Auto) 0.0 Baso % (Auto) 0.1 Neut # (Auto) 14.9 H Lymph # (Auto) 0.7 L [place] # (Auto) 0.3 Eos # (Auto) 0.0 Baso # (Auto) 0.0 Nucleated RBC % (a uto) 0 Nucleated RBCs # 0.0 Sodium 139 Potassium 4.2 Chloride 99 Carbon Dioxide 31 H Anion Gap 13.2 BUN 33 H Creatinine 0.7 GFR Calculation 112.5 Glucose 144 H POC Glucose Calculated Osmolal ity 288 Calcium 9.2 Phosphorus 3.1 Magnesium 2.2 Total Bilirubin 0.7 AST 14 ALT 15 Alkaline Phosphata se 94 Total Protein 6.0 L Albumin 2.8 L Globulin 3.2 Procalcitonin 0.13 08/14/19 08/14/19 08/14/19 20:21 16:54 11:05 WBC RBC Hgb Hct MCV MCH MCHC RDW Plt Count MPV Neut % (Auto) Lymph % (Auto) [place] % (Auto) Eos % (Auto) Baso % (Auto) Neut # (Auto) Lymph # (Auto) [place] # (Auto) Eos # (Auto) Baso # (Auto) Nucleated RBC % (a uto) Nucleated RBCs # Sodium Potassium Chloride Carbon Dioxide Anion Gap BUN Creatinine GFR Calculation Glucose POC Glucose 294 380 141 Calculated Osmolal ity Calcium Phosphorus Magnesium Total Bilirubin AST ALT Alkaline Phosphata se Total Protein Albumin Globulin Procalcitonin 08/13/19 17:22 WBC RBC Hgb Hct MCV MCH MCHC RDW Plt Count MPV Neut % (Auto) Lymph % (Auto) [place] % (Auto) Eos % (Auto) Baso % (Auto) Neut # (Auto) Lymph # (Auto) [place] # (Auto) Eos # (Auto) Baso # (Auto) Nucleated RBC % (a uto) Nucleated RBCs # Sodium Potassium Chloride Carbon Dioxide Anion Gap BUN Creatinine GFR Calculation Glucose POC Glucose 201 Calculated Osmolal ity Calcium Phosphorus Magnesium Total Bilirubin AST ALT Alkaline Phosphata se Total Protein Albumin Globulin Procalcitonin Vitals: Last Vital Signs Temp 99.0 F 08/14/19 22:00 Pulse 111 H 08/15/19 10:00 Resp 27 H 08/15/19 10:00 BP 104/80 08/15/19 10:00 Pulse Ox 85 L 08/15/19 10:00 Discharge Plan Discharge Patient Disposition: Hospice - Home Condition: Stable Prescriptions: Continued diltiazem HCl 240 mg capsule,extended release 24 hr 240 mg PO DAILY RF: 0 tramadol 50 mg tablet 50 mg PO Q8H PRN (Reason: Pain) RF: 0 valsartan 320 mg tablet 160 mg PO DAILY RF: 0 gabapentin 300 mg capsule 300 mg PO TID RF: 0 Spiriva with HandiHaler 18 mcg capsule, w/inhalation device 1 cap INHALATION DAILY RF: 0 Victoza 3-Cassius 0.6 mg/0.1 mL (18 mg/3 mL) pen injector 1.8 mg SUBCUT DAILY RF: 0 Discharge Orders: Discharge Order (Routine); Ordered 08/15/19 Ordered By: Bari Reynolds Referrals: [facility] [Outside] Discharge Diet: Advance as tolerated Discharge Activity: Bedrest Patient Instructions: Hospice Care, Using Oxygen at Home (DC) Discharge Attestations Time Spent in Discharge Care*: critical care time Specific Discharge Activities: Specific discharge activities: educating patient, educating and/or supporting family/caregiver, discussing with case picker/social workers/dc planners, documenting/other paperwork and evaluating patient/reviewing data Status at Discharge: Cognitive status at discharge: cognitively intact, Behavioral status at discharge: cooperative, Functional status at discharge: bed bound Overall status at discharge: patient has a new baseline Quality Metrics Clinical Quality Measures During this hospital stay, did patient experience: None Coding Level of Care Code Acute Sales Consulting Director for [facility] [place] Fwd Diagnoses Sepsis with acute hypoxic respiratory failure A41.9; R65.21; J96.01 Sepsis type: sepsis due to unspecified organism Severe sepsis shock status: with septic shock Septic shock A41.9; R65.21 Hypertension I10 Hypertension type: essential hypertension DM type 2 (diabetes mellitus, type 2) E11.9 Diabetes mellitus complication status: without complication Diabetes mellitus terminal supervisor insulin use: without terminal supervisor use Pulmonary fibrosis J84.10 COPD (chronic obstructive pulmonary disease) J44.9 COPD type: unspecified COPD Right ventricular dysfunction I51.9 MILENA (acute kidney injury) N17.9 NSTEMI (non-ST elevated myocardial infarction) I21.4 Hospice care patient Z51.5
[2019-08-15 11:56] LABS: Glucose Point of Care 264 mg/dL (70-110)
--- NOTE | 2019-08-15 15:40 | PC.NURSE ---
DISCHARGE Patient discharged home with hospice. All belongings sent with patient. Outside DNR signed for EMS. Discharge paperwork signed and patient verbalized understanding. Family at bedside when leaving ICU.
[2019-08-16 11:19] LABS: Glucose Point of Care 203 mg/dL (70-110)
[2019-08-16 17:40] LABS: Aspergillus AG,EIA,Serum NOT DETECTED; Aspergillus Galactomannan Inde <0.50
== END 2019-08-15 15:45 | disposition hospice, home (50) | DRG 871 ==
LOC: ER 13:31 → ICU 15:16
PROVIDERS: Family Medicine; Internal Medicine; Admitting Provider Student in an Organized Health Care Education/Training Program; Emergency Provider Emergency Medicine; PCP Nurse Practitioner Family; Visit Provider Student in an Organized Health Care Education/Training Program
DX: A41.9 Sepsis, unspecified organism (principal); J96.01 Acute respiratory failure with hypoxia; R65.21 Severe sepsis with septic shock; I21.4 Non-ST elevation (NSTEMI) myocardial infarction; J18.9 Pneumonia, unspecified organism; N17.9 Acute kidney failure, unspecified; I10 Essential (primary) hypertension; Z51.5 Encounter for palliative care; Z66 Do not resuscitate; E11.9 Type 2 diabetes mellitus without complications; J84.112 Idiopathic pulmonary fibrosis; K21.9 Gastro-esophageal reflux disease without esophagitis; Z87.891 Personal history of nicotine dependence; J43.9 Emphysema, unspecified; Z91.19 Patient's noncompliance with other medical treatment and regimen
CPT/HCPCS: 12345; 36415; 36416; 36600; 51702; 71045; 71275; 74018; 80051; 80053; 80061; 80202; 81001; 82009; 82803; 82810; 82962; 83605; 83735; 83880; 83986; 84100; 84145; 84484; 85025; 85378; 85610; 85651; 86140; 86225; 86403; 86431; 87040; 87070; 87077; 87086; 87186; 87205; 87305; 87449; 87635; 87641; 93005; 93308; 93970; 94640; 94660; 96372; 96375; 97110; 97161; 97167; 97530; 97535; 99283; C9113; G0378; J0360; J0456; J1650; J1815; J1940; J1956; J2020; J2270; J2405; J2543; J2765; J2920; J2930; J3370; J3535; J7030; J7050; J7512; J7626; Q0144; Q9967